=== PATIENT | male | born 1930 | race Caucasian/White ===

== ENCOUNTER 2018-10-04 09:05 | Inpatient (IN) | payer MEDICARE, BC ==
[2018-10-04] MEDS ORDERED: SODIUM CHLORIDE 0.9% 1,000 ML IV STA (09:22)
[2018-10-04] MEDS ORDERED: ONDANSETRON 4 MG/2 ML VIAL IVP STA (09:22)
--- NOTE | 2018-10-04 10:06 | ED ---
Abdominal Pain HPI - General Chief Complaint: Abdominal Pain Stated Complaint: vomiting Time Seen by Provider: 10/04/18 09:22 Source: patient, family, RN notes reviewed Mode of arrival: ambulatory Limitations: no limitations - History of Present Illness Initial Comments: This an 87-year-old male presents emergency Department chief complaint of abdominal discomfort, nausea vomiting. Patient states she's had a known hernia on the right side. Patient states he seen Dr. soto for this in the past and they held off on surgery. Patient states her last 2 days she's had no stool output, increasing nausea vomiting. Patient states that he has slight increase in pain to the right side. Patient called surgeon who advised him come emergency department. Patient denies any dysuria hematuria no fevers or chills. - Related Data Home Medications Medication Instructions Recorded Confirmed Digoxin [Lanoxin] 125 mcg PO DAILY 10/04/18 10/04/18 Levalbuterol Nebulized [Xopenex 1.25 mg INHALATION RT-TID PRN 10/04/18 10/04/18 Nebulized] Metoprolol Tartrate [Lopressor] 12.5 mg PO DAILY 10/04/18 10/04/18 Tamsulosin HCl [Flomax] 0.4 mg PO DAILY 10/04/18 10/04/18 Allergies Allergy/AdvReac Type Severity Reaction Status Date / Time cefuroxime [From Ceftin] Allergy Rash/Hives Verified 10/04/18 09:48 Review of Systems ROS Statement: Those systems with pertinent positive or pertinent negative responses have been documented in the HPI. ROS Other: All systems not noted in ROS Statement are negative. Past Medical History Past Medical History: Atrial Fibrillation, CVA/TIA History of Any Multi-Drug Resistant Organisms: None Reported Past Surgical History: Appendectomy, Hernia Repair, Orthopedic Surgery Past Psychological History: No Psychological Hx Reported Smoking Status: Never smoker Past Alcohol Use History: Daily Past Drug Use History: None Reported General Exam Limitations: no limitations General appearance: alert, in no apparent distress Head exam: Present: atraumatic, normocephalic, normal inspection Eye exam: Present: normal appearance, PERRL, EOMI. Absent: scleral icterus, conjunctival injection, periorbital swelling ENT exam: Present: normal exam, normal oropharynx, mucous membranes moist, TM's normal bilaterally Neck exam: Present: normal inspection, full ROM. Absent: tenderness, meningismus, lymphadenopathy Respiratory exam: Present: normal lung sounds bilaterally. Absent: respiratory distress, wheezes, rales, rhonchi, stridor Cardiovascular Exam: Present: normal rhythm, tachycardia, normal heart sounds. Absent: systolic murmur, diastolic murmur, rubs, gallop, clicks GI/Abdominal exam: Present: soft, normal bowel sounds. Absent: distended, te nderness, guarding, rebound, rigid Back exam: Absent: CVA tenderness (R), CVA tenderness (L) Neurological exam: Present: alert, oriented X3, CN II-XII intact Skin exam: Present: warm, dry, intact, normal color. Absent: rash Course Vital Signs 10/04/18 09:13 Temperature 98 F Pulse Rate 113 H Respiratory 18 Rate Blood Pressure 113/93 O2 Sat by Pulse 93 L Oximetry - Reevaluation(s) Reevaluation #1: 10/04/18 10:52 Lactic acid of 4.0 was reported initial fluid bolus was given a total 2 L based on ideal body weight of 65 kg Medical Decision Making - Lab Data Result diagrams: 10/04/18 10:25 10/04/18 10:25 Lab Results 10/04/18 10/04/18 10/04/18 Range/Units 10:25 10:25 10:25 WBC 8.4 (3.8-10.6) k/uL RBC 4.94 (4.30-5.90) m/uL Hgb 16.3 (13.0-17.5) gm/dL Hct 50.6 (39.0-53.0) % MCV 102.3 H (80.0-100.0) fL MCH 33.0 (25.0-35.0) pg MCHC 32.3 (31.0-37.0) g/dL RDW 14.5 (11.5-15.5) % Plt Count 222 (150-450) k/uL Neutrophils % 84 % Lymphocytes % 5 % Monocytes % 9 % Eosinophils % 1 % Basophils % 0 % Neutrophils # 7.1 (1.3-7.7) k/uL Lymphocytes # 0.4 L (1.0-4.8) k/uL Monocytes # 0.8 (0-1.0) k/uL Eosinophils # 0.1 (0-0.7) k/uL Basophils # 0.0 (0-0.2) k/uL Macrocytosis Slight PT (9.0-12.0) sec INR (<1.2) APTT (22.0-30.0) sec Sodium 142 (137-145) mmol/L Potassium 4.5 (3.5-5.1) mmol/L Chloride 99 (98-107) mmol/L Carbon Dioxide 28 (22-30) mmol/L Anion Gap 15 mmol/L BUN 37 H (9-20) mg/dL Creatinine 1.12 (0.66-1.25) mg/dL Est GFR (CKD-EPI)AfAm 69 (>60 ml/min/1.73 sqM) Est GFR (CKD-EPI)NonAf 60 (>60 ml/min/1.73 sqM) Glucose 174 H (74-99) mg/dL Plasma Lactic Acid Angelo 4.0 H* (0.7-2.0) mmol/L Calcium 10.1 (8.4-10.2) mg/dL Total Bilirubin 1.7 H (0.2-1.3) mg/dL AST 29 (17-59) U/L ALT 13 L (21-72) U/L Alkaline Phosphatase 86 (38-126) U/L Total Protein 8.1 (6.3-8.2) g/dL Albumin 4.7 (3.5-5.0) g/dL Amylase 65 (30-110) U/L Lipase 89 (23-300) U/L Urine Color Urine Appearance (Clear) Urine pH (5.0-8.0) Ur Specific [place] (1.001-1.035) Urine Protein (Negative) Urine Glucose (UA) (Negative) Urine Ketones (Negative) Urine Blood (Negative) Urine Nitrite (Negative) Urine Bilirubin (Negative) Urine Urobilinogen (<2.0) mg/dL Ur Leukocyte Esterase (Negative) Urine RBC (0-5) /hpf Urine WBC (0-5) /hpf Hyaline Casts (0-2) /lpf Urine Mucus (None) /hpf 10/04/18 10/04/18 Range/Units 10:25 10:25 WBC (3.8-10.6) k/uL RBC (4.30-5.90) m/uL Hgb (13.0-17.5) gm/dL Hct (39.0-53.0) % MCV (80.0-100.0) fL MCH (25.0-35.0) pg MCHC (31.0-37.0) g/dL RDW (11.5-15.5) % Plt Count (150-450) k/uL Neutrophils % % Lymphocytes % % Monocytes % % Eosinophils % % Basophils % % Neutrophils # (1.3-7.7) k/uL Lymphocytes # (1.0-4.8) k/uL Monocytes # (0-1.0) k/uL Eosinophils # (0-0.7) k/uL Basophils # (0-0.2) k/uL Macrocytosis PT 12.0 (9.0-12.0) sec INR 1.2 H (<1.2) APTT 22.3 (22.0-30.0) sec Sodium (137-145) mmol/L Potassium (3.5-5.1) mmol/L Chloride (98-107) mmol/L Carbon Dioxide (22-30) mmol/L Anion Gap mmol/L BUN (9-20) mg/dL Creatinine (0.66-1.25) mg/dL Est GFR (CKD-EPI)AfAm (>60 ml/min/1.73 sqM) Est GFR (CKD-EPI)NonAf (>60 ml/min/1.73 sqM) Glucose (74-99) mg/dL Plasma Lactic Acid Angelo (0.7-2.0) mmol/L Calcium (8.4-10.2) mg/dL Total Bilirubin (0.2-1.3) mg/dL AST (17-59) U/L ALT (21-72) U/L Alkaline Phosphatase (38-126) U/L Total Protein (6.3-8.2) g/dL Albumin (3.5-5.0) g/dL Amylase (30-110) U/L Lipase (23-300) U/L Urine Color Yellow Urine Appearance Clear (Clear) Urine pH 5.5 (5.0-8.0) Ur Specific [place] 1.030 (1.001-1.035) Urine Protein 2+ H (Negative) Urine Glucose (UA) Negative (Negative) Urine Ketones Trace H (Negative) Urine Blood Trace H (Negative) Urine Nitrite Negative (Negative) Urine Bilirubin Negative (Negative) Urine Urobilinogen 2.0 (<2.0) mg/dL Ur Leukocyte Esterase Trace H (Negative) Urine RBC 1 (0-5) /hpf Urine WBC <1 (0-5) /hpf Hyaline Casts 8 H (0-2) /lpf Urine Mucus Few H (None) /hpf Critical Care Time Critical Care Time: Yes Total Critical Care Time: 35 Critical Care Time: Total 35 minutes of critical care time were used initially evaluated the patient, you past medical history, vitals. Labs including CBC, CMP, lactic, PT/INR urinalysis were ordered CT of abdomen and pelvis were ordered initially which shows evidence of small bowel obstruction with right inguinal hernia as a transition point and concern for ischemic changes. I did this case with the admitting physician Dr. Osborne who recommended NG tube, antibiotics. Patient was given initial fluid bolus 2500 with 75 miles per hour infusion after. P atient will have repeat lactic Disposition Clinical Impression: Small bowel obstruction, Right inguinal hernia, Ischemic bowel disease Disposition: ADMITTED IP TO THIS HOSP Condition: Critical Referrals: Jose Cunningham MD [Primary Care Provider] - 1-2 days
[2018-10-04 10:36] LABS: Basophils % (A) 0 %; Eosinophils # (A) 0.1 k/uL (0-0.7); Eosinophils % (A) 1 %; HCT 50.6 % (39.0-53.0); HGB 16.3 gm/dL (13.0-17.5); Lymphocytes # (A) 0.4 k/uL (1.0-4.8); Lymphocytes % (A) 5 %; MCHC 32.3 g/dL (31.0-37.0); MCV 102.3 fL (80.0-100.0); Macrocytosis Slight; Mean Platelet Volume 7.6; Monocytes # (A) 0.8 k/uL (0-1.0); Monocytes % (A) 9 %; Neutrophils # (A) 7.1 k/uL (1.3-7.7); Neutrophils % (A) 84 %; Platelet Count 222 k/uL (150-450); RBC 4.94 m/uL (4.30-5.90); RDW 14.5 % (11.5-15.5); WBC 8.4 k/uL (3.8-10.6)
[2018-10-04 10:47] LABS: Albumin 4.7 g/dL (3.5-5.0); Calcium 10.1 mg/dL (8.4-10.2); Potassium 4.5 mmol/L (3.5-5.1); Total Bilirubin 1.7 mg/dL (0.2-1.3); Total Protein 8.1 g/dL (6.3-8.2)
[2018-10-04] MEDS ORDERED: SODIUM CHLORIDE 0.9% 1,000 ML IV ONE ×3 (10:51→19:51)
[2018-10-04 11:08] LABS: Appearance,Urine Clear (Clear); Bilirubin,Urine Negative (Negative); Blood,Urine Trace (Negative); Color,Urine Yellow; Glucose,Urine (UA) Negative (Negative); Hyaline Casts,Urine 8 /lpf (0-2); Ketones,Urine Trace (Negative); Leukocyte Esterase,Urine Trace (Negative); Mucus,Urine Few /hpf; Nitrite,Urine Negative (Negative); PH, Urine 5.5 (5.0-8.0); Protein,Urine 2+ (Negative); RBC,Urine 1 /hpf (0-5)
[2018-10-04 11:11] LABS: INR 1.2 (<1.2); Partial Thromboplastin Time 22.3 sec (22.0-30.0)
--- NOTE | 2018-10-04 12:54 | CT ---
EXAMINATION TYPE: CT abdomen pelvis w con DATE OF EXAM: 10/04/2018 COMPARISON: 02/14/2016 HISTORY: 87-year-old male with Vomiting TECHNIQUE: Contiguous axial scanning of the abdomen and pelvis following administration of 100 ml Iso parvin 300 IV contrast. Delayed images through the kidneys and coronal/sagittal reconstructions perform ed. CT DLP: 656.5 mGycm Automated exposure control for dose reduction was used. FINDINGS: The heart is mildly enlarged. Dense mitral annular calcifications. Groundglass within the right base and some focal infiltrate basilar right middle lobe. No pleural effusion. Mild circumferential wall thickening distal esophagus. Prominent fluid distention of the stomach. Sug gestion of some scattered gastric wall pneumatosis and adjacent mild perigastric fluid. Liver shows diffuse portal venous gas without focal lesion. Gallbladder, adrenal glands, left kidney, spleen, atrophic pancreas show no gross remodeling. Multiple cortical defects within the right kidney suggests prior vascular or infectious insults. Small bowel loops are dilated up to 4.1 cm with air-fluid levels. Some edematous small bowel loops ar e demonstrated. Distal ileum is collapsed. There is a small right-sided direct inguinal hernia contai helio a short segment small bowel loop. This is suspected to represent a transition point. Scattered chronic diverticulosis. No pericolic inflammatory change. Bladder partially distended. Prostate gland measures 3.8 cm wide. Additional fluid accumulated within the patient's direct right inguinal hernia. No pelvic lymphadenopathy. Bones: Degenerative changes at the hips. Degenerative disease and facet arthropathy throughout the ct mbar spine. IMPRESSION: 1. HIGH-GRADE SMALL BOWEL OBSTRUCTION (SMALL BOWEL LOOPS DILATED UP TO 4.1 CM). TRANSITION POINT LIKE LY AT A SMALL DIRECT RIGHT INGUINAL HERNIA. 2. SOME SMALL BOWEL LOOPS HAVE AN EDEMATOUS APPEARANCE. THERE IS GASTRIC WALL PNEUMATOSIS AND ADDITIO NAL PORTAL VENOUS GAS. CORRELATE WITH LACTIC ACID LEVELS FOR POSSIBLE BOWEL ISCHEMIA SECONDARY TO THE OBSTRUCTION. 3. MILD PERIGASTRIC FREE FLUID IS NOTED. HOWEVER, NO FREE AIR IS SEEN AT THIS TIME. 4. NEW GROUNDGLASS INFILTRATES AT THE RIGHT BASE. CORRELATE FOR INFECTIOUS OR ASPIRATION PNEUMONITIS.
[2018-10-04] MEDS ORDERED: PIPERACILLIN-TAZOBACTAM 3.375 GM in SODIUM CHLORIDE 0.9% 100 ML IVPB STA (13:05)
[2018-10-04] MEDS ORDERED: SODIUM CHLORIDE 0.9% 500 ML 500 ML IV ONE (13:05)
[2018-10-04] MEDS ORDERED: NALOXONE 0.4 MG/ML 1 ML VIAL IV PRN (13:18)
[2018-10-04] MEDS ORDERED: ONDANSETRON 4 MG/2 ML VIAL IVP PRN (13:18)
[2018-10-04] MEDS ORDERED: MORPHINE SULFATE 4 MG/ML SYRINGE IV PRN (13:18)
[2018-10-04] MEDS: SODIUM CHLORIDE 0.9% 1,000 ML IV SCH (15:30)
--- NOTE | 2018-10-04 15:49 | P.GSHP ---
History of Present Illness H&P Date: 10/04/18 CHIEF COMPLAINT: Abdominal pain HISTORY OF PRESENT ILLNESS: The patient is a 87 year old male with past history of previous bilateral inguinal hernia repairs as a child. He developed a recurrent right inguinal hernia which was being observed as outpatient with Dr. King. In the last 3 days, he's been unable to pass flatus. He notified his surgeon's office who immediately direct into the ER today. He has no alleviating or modifying factors. He is unable to reduce his right inguinal hernia for over 3 days. Most history obtained by his at bedside. He has acute abdominal distention including abdominal pain localized to the right lower quadrant and groin. He developed acute nausea and vomiting. Additional studies in the ER including a lactate level was moderately elevated with lactic acidosis. Diagnostic studies confirmed strangulated small bowel secondary to right inguinal hernia and acute closed loop small bowel obstruction. PAST MEDICAL HISTORY: See list. PAST SURGICAL HISTORY: See list. MEDICATIONS: See list. ALLERGIES: See list. SOCIAL HISTORY: No illicit drug use FAMILY HISTORY: No reports of Crohn's disease or inflammatory bowel disease REVIEW OF ORGAN SYSTEMS: CONSTITUTIONAL: No fevers or chills. EYES: Denies any trouble with vision. No glasses. HEENT: No difficulties with hearing. No nosebleeds. No difficulty swallowing. RESPIRATORY: Denies pneumonia. Denies any troubles with breathing or dyspnea on exertion. CARDIOVASCULAR: Has atrial fibrillation GASTROINTESTINAL: Denies fatty food intolerance. Has change in bowel habits and gas bloat. GENITOURINARY: Denies any blood in urine or increased urinary frequency. NEUROLOGICAL: Denies any numbness or tingling along the distal extremities. No seizure disorders or headaches. MUSCULOSKELETAL: Has any back pain, stiffness or joint arthritis. SKIN: No current skin cancer. No rash. PSYCHIATRIC: Denies current depression or suicidal thoughts. ENDOCRINE: Denies current thyroid disorders. Denies any blood sugar glucose intolerance. HEME/LYMPHATIC: Denies any lumps and bumps around the neck. No recent deep venous thrombosis. ALLERGY/IMMUNOLOGY: No immunoglobulin therapy. No immune deficiencies. BREAST: Denies current breast lumps, pain or nipple discharge. PHYSICAL EXAM: VITALS: Reviewed CONSTITUTIONAL: Well developed and in no acute distress. EYES: Conjuctivae without sclera icterus. Pupils are equally round and reactive to light. Extraocular movements grossly intact. HEAD, EARS, NOSE, THROAT: Moist buccal mucosa. Head is atraumatic, normocephalic. Hears conversational speech. No nasal drainage. NECK: Supple. No JV distention. No thyroidomegaly. RESPIRATORY: Non-labored respirations and equal bilateral excursions. No gross wheezes. CARDIOVASCULAR: Irregular rate and rhythm. Extremities without moderate edema. Palpable 2+ radial pulses. ABDOMEN: Soft, tender right groin with skin changes consistent with strangulated right inguinal hernia over 4 cm at internal inguinal ring. LYMPH: No neck lymphadenopathy. No axillary lymphadenopathy. MUSCULOSKELETAL: Nail and fingers with good capillary refill. SKIN: Warm and well perfused with good skin turgor. NEUROLOGIC: Cranial nerves I through XII grossly intact. Sensation upper and extremities intact. No focal or lateralizing signs. PSYCH: Appropriate affect. Alert and oriented to person, place and time. Displays appropriate insight. Has mild dysarthria CLINCAL LABS: Reviewed RADIOLOGY: Report reviewed IMAGING: Independently reviewed alongside with transition point at the right inguinal ring and closed loop obstruction with air along the biliary tree RECORDS: previous old records reviewed ASSESSMENT: 1. Acute strangulated right inguinal hernia with complete small bowel obstruct ion 2. Atrial fibrillation with rapid ventricular response 3. Lactic acidosis PLAN: 1. He is high risk for perioperative complications due to atrial fibrillation with RVR including lactic acidosis. 2. IV fluid boluses at least 2 L normal saline performed with repeat lactic acid levels pending. 3. He has acute strangulated small bowel for 3 days with bowel per CT. Will proceed with laparotomy and small bowel resection. 4. Inpatient hospitalization anticipated over 2 days. 5. Will obtain 12-lead EKG baseline prior to surgery 6. Will need cardiac consultation for atrial fibrillation 7. At this time immediate anticoagulation on hold pending surgery however heparin drip may be feasible 24-48 hours after surgery 8. DVT prophylaxis with heparin 5000 units subcutaneously Thank you for this kind consultation. Past Medical History Past Medical History: Atrial Fibrillation, CVA/TIA History of Any Multi-Drug Resistant Organisms: None Reported Past Surgical History: Appendectomy, Hernia Repair, Orthopedic Surgery Past Psychological History: No Psychological Hx Reported Smoking Status: Never smoker Past Alcohol Use History: Daily Past Drug Use History: None Reported Medications and Allergies Home Medications Medication Instructions Recorded Confirmed Type Digoxin [Lanoxin] 125 mcg PO DAILY 10/04/18 10/04/18 History Levalbuterol Nebulized [Xopenex 1.25 mg INHALATION RT-TID PRN 10/04/18 10/04/18 History Nebulized] Metoprolol Tartrate [Lopressor] 12.5 mg PO DAILY 10/04/18 10/04/18 History Tamsulosin HCl [Flomax] 0.4 mg PO DAILY 10/04/18 10/04/18 History Allergies Allergy/AdvReac Type Severity Reaction Status Date / Time cefuroxime [From Ceftin] Allergy Rash/Hives Verified 10/04/18 09:48 Surgical - Exam Vital Signs Temp Pulse Resp BP Pulse Ox 98 F 113 H 18 113/93 93 L 10/04/18 09:13 10/04/18 09:13 10/04/18 09:13 10/04/18 09:13 10/04/18 09:13 Results - Labs 10/04/18 10:25 10/04/18 10:25 Abnormal Lab Results - Last 24 Hours (Table) 10/04/18 10/04/18 10/04/18 Range/Units 10:25 10:25 10:25 MCV 102.3 H (80.0-100.0) fL Lymphocytes # 0.4 L (1.0-4.8) k/uL INR (<1.2) BUN 37 H (9-20) mg/dL Glucose 174 H (74-99) mg/dL Plasma Lactic Acid Angelo 4.0 H* (0.7-2.0) mmol/L Total Bilirubin 1.7 H (0.2-1.3) mg/dL ALT 13 L (21-72) U/L Urine Protein (Negative) Urine Ketones (Negative) Urine Blood (Negative) Ur Leukocyte Esterase (Negative) Hyaline Casts (0-2) /lpf Urine Mucus (None) /hpf 10/04/18 10/04/18 10/04/18 Range/Units 10:25 10:25 13:49 MCV (80.0-100.0) fL Lymphocytes # (1.0-4.8) k/uL INR 1.2 H (<1.2) BUN (9-20) mg/dL Glucose (74-99) mg/dL Plasma Lactic Acid Angelo 2.1 H* (0.7-2.0) mmol/L Total Bilirubin (0.2-1.3) mg/dL ALT (21-72) U/L Urine Protein 2+ H (Negative) Urine Ketones Trace H (Negative) Urine Blood Trace H (Negative) Ur Leukocyte Esterase Trace H (Negative) Hyaline Casts 8 H (0-2) /lpf Urine Mucus Few H (None) /hpf Diabetes panel 10/04/18 Range/Units 10:25 Sodium 142 (137-145) mmol/L Potassium 4.5 (3.5-5.1) mmol/L Chloride 99 (98-107) mmol/L Carbon Dioxide 28 (22-30) mmol/L BUN 37 H (9-20) mg/dL Creatinine 1.12 (0.66-1.25) mg/dL Glucose 174 H (74-99) mg/dL Calcium 10.1 (8.4-10.2) mg/dL AST 29 (17-59) U/L ALT 13 L (21-72) U/L Alkaline Phosphatase 86 (38-126) U/L Total Protein 8.1 (6.3-8.2) g/dL Albumin 4.7 (3.5-5.0) g/dL Calcium panel 10/04/18 Range/Units 10:25 Calcium 10.1 (8.4-10.2) mg/dL Albumin 4.7 (3.5-5.0) g/dL Pituitary panel 10/04/18 Range/Units 10:25 Sodium 142 (137-145) mmol/L Potassium 4.5 (3.5-5.1) mmol/L Chloride 99 (98-107) mmol/L Carbon Dioxide 28 (22-30) mmol/L BUN 37 H (9-20) mg/dL Creatinine 1.12 (0.66-1.25) mg/dL Glucose 174 H (74-99) mg/dL Calcium 10.1 (8.4-10.2) mg/dL Adrenal panel 10/04/18 Range/Units 10:25 Sodium 142 (137-145) mmol/L Potassium 4.5 (3.5-5.1) mmol/L Chloride 99 (98-107) mmol/L Carbon Dioxide 28 (22-30) mmol/L BUN 37 H (9-20) mg/dL Creatinine 1.12 (0.66-1.25) mg/dL Glucose 174 H (74-99) mg/dL Calcium 10.1 (8.4-10.2) mg/dL Total Bilirubin 1.7 H (0.2-1.3) mg/dL AST 29 (17-59) U/L ALT 13 L (21-72) U/L Alkaline Phosphatase 86 (38-126) U/L Total Protein 8.1 (6.3-8.2) g/dL Albumin 4.7 (3.5-5.0) g/dL - Imaging CT scan - abdomen: report reviewed, image reviewed CT scan - pelvis: report reviewed, image reviewed Assessment and Plan (1) Atrial fibrillation with RVR Current Visit: Yes Status: Acute Code(s): I48.91 - UNSPECIFIED ATRIAL FIBRILLATION SNOMED Code(s): 549233446738090 (2) Chronic atrial fibrillation with RVR Current Visit: Yes Status: Acute Code(s): I48.2 - CHRONIC ATRIAL FIBRILLATION SNOMED Code(s): 735307612 (3) Ischemic bowel disease Current Visit: Yes Status: Acute Code(s): K55.9 - VASCULAR DISORDER OF INTESTINE, UNSPECIFIED SNOMED Code(s): 26930271 (4) Right inguinal hernia Current Visit: Yes Status: Acute Code(s): K40.90 - UNIL INGUINAL HERNIA, W/O OBST OR GANGR, NOT SPCF RECUR SNOMED Code(s): 944958117 (5) Small bowel obstruction Current Visit: Yes Status: Acute Code(s): K56.609 - UNSP INTESTNL OBST, UNSP TO PARTIAL VERSUS COMPLETE OBST SNOMED Code(s): 858201575
[2018-10-04] MEDS ORDERED: IV FLUID CONTINUATION 900 ML IV ONE (16:40)
[2018-10-04] MEDS ORDERED: HEPARIN SODIUM,PORCINE 5,000 UNIT/ML 1 ML VIAL SQ ONE ×2 (16:43→17:15)
[2018-10-04] MEDS ORDERED: ONDANSETRON 4 MG/2 ML VIAL IVP ONE (17:00)
[2018-10-04] MEDS ORDERED: PROPOFOL 10 MG/ML 20 ML VIAL IV ONE (17:17)
[2018-10-04] MEDS ORDERED: SUCCINYLCHOLINE CHLORIDE 100 MG/5 ML SYR IV ONE (17:17)
[2018-10-04] MEDS ORDERED: PHENYLEPHRINE-0.9% NACL SYG 1 MG/10 ML SYRINGE ONE (17:17)
[2018-10-04] MEDS ORDERED: GLYCOPYRROLATE 0.2 MG/ML 2 ML VIAL ONE (17:17)
[2018-10-04] MEDS ORDERED: LIDOCAINE 1% INJ 10MG/ML (20 ML MDV) ONE (17:17)
[2018-10-04] MEDS ORDERED: ROCURONIUM BROMIDE 10 MG/ML 10 ML VIAL IV ONE (17:17)
[2018-10-04] MEDS ORDERED: NEOSTIGMINE 1 MG/ML 10 ML VIAL ONE (17:17)
[2018-10-04] MEDS ORDERED: fentaNYL (PF) 50 MCG/ML 2 ML AMP ONE (17:17)
[2018-10-04] MEDS ORDERED: HYDROmorphone 0.5 MG/0.5 ML SYRINGE IVP PRN (19:09)
[2018-10-04] MEDS ORDERED: HYDROcodone/APAP 5-325MG 1 EACH TAB PO PRN (19:09)
[2018-10-04] MEDS ORDERED: ACETAMINOPHEN TAB 325 MG TAB PO PRN (19:09)
--- NOTE | 2018-10-04 19:20 | P.OP ---
Date of Procedure: 10/04/18 Description of Procedure: SURGEON: AMANDA MASON MD ASSISTANT PROPERTY MANAGER: NONE. PREOPERATIVE DIAGNOSIS: 1. Complete small bowel obstruction due to acute recurrent strangulated right inguinal hernia 2. Lactic acidosis 3. Hypertensive heart disease. 4. Atrial fibrillation with rapid ventricular response 5. Previous history of cerebrovascular accident with sequelae 6. Previous history of recurrent bilateral inguinal hernia repairs 7. Previous history of multiple abdominal surgeries 8. Chronic obstructive pulmonary disease POSTOPERATIVE DIAGNOSIS: 1. Complete small bowel obstruction due to acute recurrent strangulated right inguinal hernia 2. Lactic acidosis 3. Hypertensive heart disease. 4. Atrial fibrillation with rapid ventricular response 5. Previous history of cerebrovascular accident with sequelae 6. Previous history of recurrent bilateral inguinal hernia repairs 7. Previous history of multiple abdominal surgeries 8. Chronic obstructive pulmonary disease 9. Small bowel necrosis distal jejunum 10. 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 Open exploratory laparotomy with lysis of adhesions. 2. Open small bowel enterectomy with primary anastomosis. 3. Open repair without mesh of recurrent right incarcerated inguinal hernia for strangulated small bowel ANESTHESIA: General ESTIMATED BLOOD LOSS: 20 cc. SPECIMENS REMOVED: Small bowel resection, 4 cm. CONDITION: Stable. DISPOSITION: To the Floor. COMPLICATIONS: None. OPERATIVE FINDINGS: 1. Small bowel closed loop obstruction from recurrent right inguinal hernia found in the right lower quadrant with small bowel necrosis, 4 cm, distal jejunum INDICATIONS: The patient is a 87-year-old male who has history of recurrent right inguinal hernia and abdominal pain of [address] of the abdomen and pelvis was consistent with small bowel obstruction including risk of ischemic bowel with lactic acidosis. Emergent surgical intervention was advised with exploratory laparotomy with bowel resection. Right inguinal hernia repair without mesh was also reviewed to avoid risk for contamination of mesh in an infected field. Benefits and risks of the procedures were discussed. Informed consent was obtained. The patient's family were at bedside. DESCRIPTION: The patient was brought to the operating room. Nasogastric tube was previously placed. After general induction, a Shea catheter was placed. The abdomen was prepped and draped in standard sterile fashion. Ioban draping was also placed. Prior to incision, a timeout protocol was confirmed with surgical team regarding patient's name including procedures to be performed. Preoperative medications were confirmed. A #10 blade was used to enter along the epigastrium and extended down to the pubis. Carefully the abdomen was entered using electro- Bovie cautery. The small bowel was grossly dilated. Peritoneal adhesions greater omentum to the anterior abdominal wall was found along the midline in the right lower quadrant addressed using Enseal vessel sealer. A large swollen mass was found along the right groin where attempted reduction was performed. The patient was placed in steep Trendelenburg position with gentle pressure over the right groin. The incarcerated small bowel was reduced with early necrosis of the sidewall of the distal jejunum was found. A short segment of 4 cm was determined after observing the bowel for over 5 minutes. The necrotic small bowel was repaired for resection after approximating the small bowel and a [id number] anastomosis using 3-0 silk. The short 4-cm segment small bowel was resected using The Bar Method Endo ZAFAR 60 mm self loads. Enterotomies were made along the anti-mesenteric border. Ankit-lumen was created after firing using similar stapler. The enterotomy was closed using Endo ZAFAR 60 mm purple load. Hemostasis was checked and the lumen was patent. A separate 3- 0 silk was placed on the seat of the anastomosis. The rest of the abdomen was explored where no evidence of peritoneal studding or signs of cancer was found. Moderate large stool albeit firm was found along the ascending including transverse colon. A separate adhesion was found of the terminal ileum from previous appendectomy which was also sharply lysed to decrease risk of small bowel incarceration. Attention was brought to the right inguinal hernia defect which was indirect. The defect was explored of 1.5 cm in size. The defect was oversewn using pursestring 2-0V LOC until the defect was completely obliterated. Mesh repair was avoided as this is a contaminated case as previously explained to the patient's family. All instruments and gowns including gloves were changed after confirming hemostasis. The abdomen was dried using towels. All sponge count was verified as correct. The abdomen was closed using double stranded 0 PDS. The skin was cleansed with dilute hydrogen peroxide. An Optifoam incisional length dressing was placed. An abdominal binder was placed. At the end of the procedure, needle, sponge, and instrument count had been verified correct by the certified surgical tech/first assistant. The patient was sent to the postanesthesia care unit in stable condition. Intraoperative findings were described to the patient's family who were very pleased with the level of care. Postoperative recovery in detail was described.
[2018-10-04] MEDS: HEPARIN SODIUM,PORCINE 5,000 UNIT/ML 1 ML VIAL SQ SCH (22:00)
--- NOTE | 2018-10-04 22:33 | P.CONS ---
History of Present Illness - Reason for Consult Consult date: 10/04/18 Medical management Requesting physician: Emily Ledesma - Chief Complaint Abdominal pain - History of Present Illness Consultation: This is a 87-year-old patient who follows with Dr. Parada. Chronic stable medical conditions include intermittent asthma, dysarthria from a prior stroke, BPH, possible atrial fibrillation. Patient had presented to the ER with 2 days of increasing pain in the right inguinal area. Pain was localized to the right groin. No fever no chills. Nausea vomiting. Had not had a bowel movement for 2 days. A computed tomography scan showed a high-grade small bowel obstruction with a transition point. Patient was taken to the OR. 4 cm of the jejunal was taken out. End to end anastomosis was done. Patient has a NG tube in place. Patient is a somewhat limited historian because of his dysarthria and NG tube in place. Most of the history is obtained from the nurse and the ER notes. Review of systems: GEN.: Tired EYES: None HEENT: None NECK: None RESPIRATORY: None CARDIOVASCULAR: None GASTROINTESTINAL: As above GENITOURINARY: None MUSCULOSKELETAL: Some pain in the joints LYMPHATICS: None HEMATOLOGICAL: None PSYCHIATRY: None NEUROLOGICAL: Dysarthric Past medical history: Intermittent asthma, dysarthria from prior stroke, BPH, possible atrial fibrillation, osteoarthritis Social history: No smoking. Some alcohol. Possibly lives with family. Retired. Physical examination: VITAL SIGNS: 98.2, 107, 18, 1 57 x 88 98% on 2 L GENERAL: Average built, sitting up, tired appearing. EYES: Pupils equal. Conjunctiva normal. HEENT: External appearance of nose and ears normal, oral cavity dry, NG tube in place. NECK: JVD not raised; masses not palpable. HEART: First and second heart sounds are normal; no edema. LUNGS: Respiratory rate normal; clear to auscultation. ABDOMEN: Soft, tender, bowel sounds are sluggish, binder in place. Unable to assess for liver and spleen.. PSYCH: [Unable to assess because of dysarthria. NEUROLOGICAL: Cranial nerves grossly intact; no facial asymmetry, power and sensation grossly intact. Patient has got dysarthria. 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 IV fluids. Patient to take his pills especially his beta cathy if okay with general surgery. Patient has heparin for DVT prophylaxis. Care was discussed with the patient. No family members present. Patient to be watched on telemetry Thank you Dr. Osborne Past Medical History Past Medical History: Atrial Fibrillation, CVA/TIA History of Any Multi-Drug Resistant Organisms: None Reported Past Surgical History: Appendectomy, Hernia Repair, Orthopedic Surgery Past Psychological History: No Psychological Hx Reported Smoking Status: Never smoker Past Alcohol Use History: Daily Past Drug Use History: None Reported Medications and Allergies Home Medications Medication Instructions Recorded Confirmed Type Digoxin [Lanoxin] 125 mcg PO DAILY 10/04/18 10/04/18 History Levalbuterol Nebulized [Xopenex 1.25 mg INHALATION RT-TID PRN 10/04/18 10/04/18 History Nebulized] Metoprolol Tartrate [Lopressor] 12.5 mg PO DAILY 10/04/18 10/04/18 History Tamsulosin HCl [Flomax] 0.4 mg PO DAILY 10/04/18 10/04/18 History Allergies Allergy/AdvReac Type Severity Reaction Status Date / Time cefuroxime [From Ceftin] Allergy Rash/Hives Verified 10/04/18 09:48 Physical Exam Vitals: Vital Signs Temp Pulse Pulse Pulse Resp BP BP 10/04/18 20:01 110 H 16 157/88 10/04/18 19:46 110 H 16 161/98 10/04/18 19:30 110 H 16 165/96 10/04/18 19:16 109 H 18 169/93 10/04/18 19:04 98.2 F 107 H 18 181/83 10/04/18 16:42 99.5 F 113 H 18 139/95 10/04/18 14:50 52 L 17 139/97 10/04/18 09:13 98 F 113 H 18 113/93 Pulse Ox 10/04/18 20:01 98 10/04/18 19:46 98 10/04/18 19:30 98 10/04/18 19:16 98 10/04/18 19:04 98 10/04/18 16:42 95 10/04/18 14:50 93 L 10/04/18 09:13 93 L Intake and Output 10/04/18 10/04/18 10/04/18 06:59 14:59 22:59 Intake Total 3300 Output Total 900 295 Balance -900 3005 Intake: IV 800 Amount of Fluid Infused ( 2500 ml) Output: Gastric Drainage 900 Urine 275 Estimated Blood Loss 20 Other: Weight 68.039 kg Results CBC & Chem 7: 10/04/18 10:25 10/04/18 10:25 Labs: Abnormal Lab Results - Last 24 Hours (Table) 10/04/18 10/04/18 10/04/18 Range/Units 10:25 10:25 10:25 MCV 102.3 H (80.0-100.0) fL Lymphocytes # 0.4 L (1.0-4.8) k/uL INR (<1.2) BUN 37 H (9-20) mg/dL Glucose 174 H (74-99) mg/dL Plasma Lactic Acid Angelo 4.0 H* (0.7-2.0) mmol/L Total Bilirubin 1.7 H (0.2-1.3) mg/dL ALT 13 L (21-72) U/L Urine Protein (Negative) Urine Ketones (Negative) Urine Blood (Negative) Ur Leukocyte Esterase (Negative) Hyaline Casts (0-2) /lpf Urine Mucus (None) /hpf 10/04/18 10/04/18 10/04/18 Range/Units 10:25 10:25 13:49 MCV (80.0-100.0) fL Lymphocytes # (1.0-4.8) k/uL INR 1.2 H (<1.2) BUN (9-20) mg/dL Glucose (74-99) mg/dL Plasma Lactic Acid Angelo 2.1 H* (0.7-2.0) mmol/L Total Bilirubin (0.2-1.3) mg/dL ALT (21-72) U/L Urine Protein 2+ H (Negative) Urine Ketones Trace H (Negative) Urine Blood Trace H (Negative) Ur Leukocyte Esterase Trace H (Negative) Hyaline Casts 8 H (0-2) /lpf Urine Mucus Few H (None) /hpf 10/04/18 Range/Units 18:25 MCV (80.0-100.0) fL Lymphocytes # (1.0-4.8) k/uL INR (<1.2) BUN (9-20) mg/dL Glucose (74-99) mg/dL Plasma Lactic Acid Angelo 2.7 H* (0.7-2.0) mmol/L Total Bilirubin (0.2-1.3) mg/dL ALT (21-72) U/L Urine Protein (Negative) Urine Ketones (Negative) Urine Blood (Negative) Ur Leukocyte Esterase (Negative) Hyaline Casts (0-2) /lpf Urine Mucus (None) /hpf
[2018-10-05] MEDS: PIPERACILLIN-TAZOBACTAM 3.375 GM in SODIUM CHLORIDE 0.9% 100 ML IVPB SCH ×4 (00:15→23:04)
[2018-10-05] MEDS: METOPROLOL TARTRATE 12.5 MG TAB PO SCH ×2 (04:31→09:06)
[2018-10-05] MEDS: SODIUM CHLORIDE 0.9% 1,000 ML IV SCH ×2 (04:33→08:43)
[2018-10-05 07:01] LABS: Albumin 2.9 g/dL (3.5-5.0); Calcium 8.2 mg/dL (8.4-10.2); Magnesium 1.8 mg/dL (1.6-2.3); Phosphorus 3.8 mg/dL (2.5-4.5); Potassium 4.2 mmol/L (3.5-5.1); Total Bilirubin 1.3 mg/dL (0.2-1.3); Total Protein 5.4 g/dL (6.3-8.2)
[2018-10-05 07:02] LABS: Basophils % (A) 0 %; Eosinophils % (A) 1 %; HCT 42.1 % (39.0-53.0); HGB 13.4 gm/dL (13.0-17.5); Lymphocytes # (A) 0.7 k/uL (1.0-4.8); Lymphocytes % (A) 9 %; MCH 32.8 pg (25.0-35.0); MCHC 31.7 g/dL (31.0-37.0); MCV 103.5 fL (80.0-100.0); Macrocytosis Slight; Mean Platelet Volume 7.5; Monocytes # (A) 0.4 k/uL (0-1.0); Monocytes % (A) 5 %; Neutrophils # (A) 5.9 k/uL (1.3-7.7); Neutrophils % (A) 83 %; Platelet Count 167 k/uL (150-450); RBC 4.07 m/uL (4.30-5.90); RDW 14.5 % (11.5-15.5); WBC 7.1 k/uL (3.8-10.6)
[2018-10-05] MEDS: PANTOPRAZOLE 40 MG/10 ML VIAL IV SCH (08:42)
[2018-10-05] MEDS: HEPARIN SODIUM,PORCINE 5,000 UNIT/ML 1 ML VIAL SQ SCH ×2 (08:43→20:05)
[2018-10-05] MEDS ORDERED: METOPROLOL TARTRATE 12.5 MG TAB PO SCH (09:00)
[2018-10-05] MEDS ORDERED: DIGOXIN 125 MCG TAB PO SCH (09:00)
[2018-10-05] MEDS: TAMSULOSIN 0.4 MG CAP.ER.24H PO SCH (09:06)
--- NOTE | 2018-10-05 09:55 | P.CRDCN ---
History of Present Illness Consult date: 10/05/18 Requesting physician: Emily Ledesma Consult reason: atrial fibrillation Chief complaint: Abdominal discomfort, nausea and vomiting History of present illness: This is an 87-year-old gentleman, the history was somewhat difficult to obtain from the patient, most of it was obtained from the medical record. Patient has had a prior stroke and has dysarthria from that. He does have h istory of asthma, he does take a beta cathy as well as Lanoxin at home, but he is unsure if he has any history of atrial fibrillation in the past, mild hypertension, nondiabetic, no high cholesterol. He presented to the hospital with symptoms of abdominal discomfort, not having had a bowel movement for the past 2-3 days prior to admission here, he was found to have a high-grade small bowel obstruction and was taken to the emergency room where he underwent surgery. Patient is noted to be in atrial tachycardia with occasional PVC , cardiology consultation has been requested for possible atrial fibrillation.. Blood pressure this morning 134/70 with a heart rate in the 1 teens, 96% on 2 L of oxygen. White blood cell count 7.1, hemoglobin 13.4, platelet count 167. Sodium 142, potassium 4.2, BUN 33 and creatinine 0.9. Magnesium is 1.8. Patient is sitting up in the chair at bedside at this morning, NG tube has been removed. Past Medical History Past Medical History: Atrial Fibrillation, CVA/TIA History of Any Multi-Drug Resistant Organisms: None Reported Past Surgical History: Appendectomy, Hernia Repair, Orthopedic Surgery Past Psychological History: No Psychological Hx Reported Smoking Status: Never smoker Past Alcohol Use History: Daily Past Drug Use History: None Reported Medications and Allergies Home Medications Medication Instructions Recorded Confirmed Type Digoxin [Lanoxin] 125 mcg PO DAILY 10/04/18 10/04/18 History Levalbuterol Nebulized [Xopenex 1.25 mg INHALATION RT-TID PRN 10/04/18 10/04/18 History Nebulized] Metoprolol Tartrate [Lopressor] 12.5 mg PO DAILY 10/04/18 10/04/18 History Tamsulosin HCl [Flomax] 0.4 mg PO DAILY 10/04/18 10/04/18 History Allergies Allergy/AdvReac Type Severity Reaction Status Date / Time cefuroxime [From Ceftin] Allergy Rash/Hives Verified 10/04/18 09:48 Physical Exam Vitals: Vital Signs Temp Pulse Pulse Pulse Resp BP BP 10/05/18 07:32 18 10/05/18 07:30 98.3 F 115 H 18 134/78 10/05/18 04:00 98.4 F 113 H 18 150/91 10/04/18 22:40 96.9 F L 110 H 18 155/91 10/04/18 21:40 97.1 F L 111 H 18 139/89 10/04/18 20:40 97.0 F L 111 H 18 147/94 10/04/18 20:01 110 H 16 157/88 10/04/18 19:46 110 H 16 161/98 10/04/18 19:30 110 H 16 165/96 10/04/18 19:16 109 H 18 169/93 10/04/18 19:04 98.2 F 107 H 18 181/83 10/04/18 16:42 99.5 F 113 H 18 139/95 10/04/18 14:50 52 L 17 139/97 Pulse Ox 10/05/18 07:32 96 10/05/18 07:30 88 L 10/05/18 04:00 97 10/04/18 22:40 97 10/04/18 21:40 96 10/04/18 20:40 89 L 10/04/18 20:01 98 10/04/18 19:46 98 10/04/18 19:30 98 10/04/18 19:16 98 10/04/18 19:04 98 10/04/18 16:42 95 10/04/18 14:50 93 L Intake and Output 10/04/18 10/05/18 10/05/18 22:59 06:59 14:59 Intake Total 3300 100 Output Total 570 650 400 Balance 2730 -550 -400 Intake: IV 800 Amount of Fluid Infused ( 2500 ml) Intake, IV Titration 100 Amount Piperacillin-Tazobactam 3 100 .375 gm In Sodium Chloride 0.9% 100 ml @ 25 mls/hr IVPB Q8HR [facility] Rx# :[id number] Output: Gastric Drainage 100 Urine 550 550 400 Estimated Blood Loss 20 Other: Voiding Method Indwelling Catheter Indwelling Catheter Weight 75 kg PHYSICAL EXAMINATION: GENERAL: 87-year-old gentleman in no acute distress at the time of my examination HEENT: Head is atraumatic, normocephalic. Pupils equal, round. Sclera anicteric. Conjunctiva are clear. Mucous membranes of the mouth are moist. Neck is supple. There is no elevated jugular venous pressure. No carotid bruit is heard. HEART EXAMINATION: Heart S1 and S2 irregularly irregular a systolic murmur is heard CHEST EXAMINATION: Lungs reveal scattered coarse rhonchi that clear with cough. ABDOMEN: Soft, mild generalized tenderness, bowel sounds are sluggish, abdominal binder is in place.. EXTREMITIES: 2+ peripheral pulses with no evidence of peripheral edema and no calf tenderness noted. Venodyne's in place. NEUROLOGIC patient is awake, alert and oriented 3, positive dysarthria secondary to CVA.. . Results 10/05/18 06:08 10/05/18 06:08 Cardiac Enzymes 10/04/18 10/05/18 Range/Units 10:25 06:08 AST 29 25 (17-59) U/L Coagulation 10/04/18 Range/Units 10:25 PT 12.0 (9.0-12.0) sec APTT 22.3 (22.0-30.0) sec CBC 10/04/18 10/05/18 Range/Units 10:25 06:08 WBC 8.4 7.1 (3.8-10.6) k/uL RBC 4.94 4.07 L (4.30-5.90) m/uL Hgb 16.3 13.4 (13.0-17.5) gm/dL Hct 50.6 42.1 (39.0-53.0) % Plt Count 222 167 (150-450) k/uL Comprehensive Metabolic Panel 10/04/18 10/05/18 Range/Units 10:25 06:08 Sodium 142 142 (137-145) mmol/L Potassium 4.5 4.2 (3.5-5.1) mmol/L Chloride 99 110 H (98-107) mmol/L Carbon Dioxide 28 26 (22-30) mmol/L BUN 37 H 33 H (9-20) mg/dL Creatinine 1.12 0.98 (0.66-1.25) mg/dL Glucose 174 H 120 H (74-99) mg/dL Calcium 10.1 8.2 L (8.4-10.2) mg/dL AST 29 25 (17-59) U/L ALT 13 L 21 (21-72) U/L Alkaline Phosphatase 86 58 (38-126) U/L Total Protein 8.1 5.4 L (6.3-8.2) g/dL Albumin 4.7 2.9 L (3.5-5.0) g/dL Current Medications Generic Name Dose Route Start Last Admin Trade Name Freq PRN Reason Stop Dose Admin Acetaminophen 650 mg 10/04/18 19:09 Tylenol Tab PO Q6HR PRN Mild Pain or Fever >= 100.5 Hydrocodone Bitart/Acetaminophen 1 each 10/04/18 19:09 [place] 5-325 PO Q4HR PRN Mild Pain Digoxin 125 mcg 10/05/18 09:00 10/05/18 09:06 Lanoxin PO 125 mcg DAILY MARY Administration Heparin Sodium (Porcine) 5,000 unit 10/04/18 21:00 10/05/18 08:43 Heparin SQ 5,000 unit Q12HR MARY Administration Hydromorphone HCl 0.5 mg 10/04/18 19:09 Dilaudid IVP Q3HR PRN Moderate to Severe Pain Piperacillin Sod/Tazobactam 100 mls @ 25 mls/hr 10/05/18 00:00 10/05/18 08:43 Sod 3.375 gm/ Sodium Chloride IVPB 25 mls/hr Q8HR MARY Administration Sodium Chloride 1,000 mls @ 75 mls/hr 10/04/18 13:15 10/05/18 08:43 Saline 0.9% IV 75 mls/hr .[id number] MARY Administration Metoprolol Tartrate 12.5 mg 10/04/18 22:45 10/05/18 09:06 Lopressor PO 12.5 mg BID MARY Administration Morphine Sulfate 4 mg 10/04/18 13:18 10/05/18 04:25 Morphine Sulfate (Inj) IV 4 mg Q4HR PRN Administration Severe Pain Naloxone HCl 0.2 mg 10/04/18 13:18 Narcan IV Q2M PRN Opioid Reversal Ondansetron HCl 4 mg 10/04/18 13:18 Zofran IVP Q8HR PRN Nausea And Vomiting Pantoprazole Sodium 40 mg 10/05/18 09:00 10/05/18 08:42 Protonix IV 40 mg DAILY MARY Administration Tamsulosin HCl 0.4 mg 10/05/18 09:00 10/05/18 09:06 Flomax PO 0.4 mg DAILY MARY Administration Intake and Output 10/04/18 10/05/18 10/05/18 22:59 06:59 14:59 Intake Total 3300 100 Output Total 570 650 400 Balance 2730 -550 -400 Intake: IV 800 Amount of Fluid Infused ( 2500 ml) Intake, IV Titration 100 Amount Piperacillin-Tazobactam 3 100 .375 gm In Sodium Chloride 0.9% 100 ml @ 25 mls/hr IVPB Q8HR [facility] Rx# :[id number] Output: Gastric Drainage 100 Urine 550 550 400 Estimated Blood Loss 20 Other: Voiding Method Indwelling Catheter Indwelling Catheter Weight 75 kg 10/05/18 06:08 10/05/18 06:08 EKG Interpretations (text) EKG shows a sinus tachycardia with occasional PVC. Assessment and Plan Plan: Assessment and plan #1 small bowel obstruction status post surgery #2 atrial tachycardia likely secondary to infection, lactic acid elevated on admission #3 hypertension #4 history of prior CVA with chronic dysarthria Plan We will obtain an echocardiogram with Doppler study as well as TSH level. The patient's rhythm strips and EKGs have been reviewed, it appears the patient is in atrial tachycardia persistently, with occasional PVCs. No evidence of atrial fibrillation. Patient's tachycardia is likely secondary to infection. We will initiate a small dose of beta cathy. We will continue to follow. DNP note has been reviewed, I agree with a documented findings and plan of care. Patient was seen and examined.
--- NOTE | 2018-10-05 12:44 | P.PN ---
Subjective Progress Note Date: 10/05/18 CHIEF COMPLAINT: Abdominal pain HISTORY OF PRESENT ILLNESS: 87-year-old male who is status post open exploratory laparotomy with lysis of adhesions, small bowel enterectomy with primary anastomosis, and open repair without mesh of recurrent right incarcerated ing uinal hernia. POD #1. Patient examined at the bedside this morning. His abdominal pain is tolerable. He has an NG to LIS with small amount of bilious drainage. Patient is complaining of NG tube causing discomfort. WBC 7.1. Hemoglobin 13.4. Potassium 4.2. Magnesium 1.8. Blood pressure stable. Heart rate remains in the 110s. Afebrile. PHYSICAL EXAM: VITAL SIGNS: Reviewed. Tachycardic. GENERAL: Well-developed in no acute distress. HEENT: NG tube to low intermittent suction. No sclera icterus. Extraocular movements grossly intact. Moist buccal mucosa. Head is atraumatic, normocephalic. Hears conversational speech. No nasal drainage. NECK: Supple without lymphadenopathy. CHEST: Non-labored respirations and equal bilateral excursions. CARDIOVASCULAR: Irregular rhythm. Palpable 2+ radial pulses. ABDOMEN: Soft. Nondistended. Minimal tenderness. Dressing to abdomen clean dry and intact. MUSCULOSKELETAL: No clubbing, cyanosis or edema. NEUROLOGIC: No focal or lateralizing signs. Cranial nerves II through XII grossly intact. PSYCH: Appropriate affect. Alert and oriented. SKIN: Well perfused. Good skin turgor. ASSESSMENT: 1. Acute strangulated right inguinal hernia with complete small bowel obstruction, status post open exploratory laparotomy with lysis of adhesions, small bowel enterectomy with primary anastomosis, and open repair without mesh of recurrent right incarcerated inguinal hernia 2. Lactic acidosis with tachycardia, meets sepsis criteria, POA 3. Atrial tachycardia, atrial fibrillation ruled out per cardiology PLAN: 1. Cardiology has evaluated the patient and ruled out atrial fibrillation. Beta cathy resumed per cardiology. 2. NG tube discontinued at the bedside. Patient may have ice chips and medications 3. Replace magnesium to maintain magnesium levels greater than 2.0 4. Incentive spirometry 5. Pain control 6. Activity as tolerated. Physical therapy and occupational therapy on consult 7. Social work consulted for possible ECF at the time of discharge Nurse practitioner note has been reviewed by physician. Signing provider agrees with the documented findings, assessment, and plan of care. Objective - Vital Signs Vital signs: Vital Signs Temp 98.3 F 10/05/18 07:30 Pulse 115 H 10/05/18 08:00 Resp 18 10/05/18 08:00 BP 134/78 10/05/18 07:30 Pulse Ox 96 10/05/18 07:32 Intake & Output 10/04/18 10/05/18 10/05/18 18:59 06:59 18:59 Intake Total 3300 100 Output Total 1195 925 400 Balance 2105 -825 -400 Weight 68.039 kg 75 kg Intake: IV 800 0 Amount of Fluid Infused ( 2500 ml) Intake, IV Titration 100 Amount Piperacillin-Tazobactam 3 100 .375 gm In Sodium Chloride 0.9% 100 ml @ 25 mls/hr IVPB Q8HR [facility] Rx# :[id number] Output: Gastric Drainage 900 100 Urine 275 825 400 Estimated Blood Loss 20 Other: Voiding Method Indwelling Catheter Indwelling Catheter - Labs CBC & Chem 7: 10/05/18 06:08 10/05/18 06:08 Labs: Abnormal Lab Results - Last 24 Hours (Table) 10/04/18 10/04/18 10/05/18 Range/Units 13:49 18:25 06:08 RBC 4.07 L (4.30-5.90) m/uL MCV 103.5 H (80.0-100.0) fL Lymphocytes # 0.7 L (1.0-4.8) k/uL Chloride (98-107) mmol/L BUN (9-20) mg/dL Glucose (74-99) mg/dL Plasma Lactic Acid Angelo 2.1 H* 2.7 H* (0.7-2.0) mmol/L Calcium (8.4-10.2) mg/dL Total Protein (6.3-8.2) g/dL Albumin (3.5-5.0) g/dL 10/05/18 Range/Units 06:08 RBC (4.30-5.90) m/uL MCV (80.0-100.0) fL Lymphocytes # (1.0-4.8) k/uL Chloride 110 H (98-107) mmol/L BUN 33 H (9-20) mg/dL Glucose 120 H (74-99) mg/dL Plasma Lactic Acid Angelo (0.7-2.0) mmol/L Calcium 8.2 L (8.4-10.2) mg/dL Total Protein 5.4 L (6.3-8.2) g/dL Albumin 2.9 L (3.5-5.0) g/dL Assessment and Plan (1) Right inguinal hernia Current Visit: Yes Status: Acute Code(s): K40.90 - UNIL INGUINAL HERNIA, W/O OBST OR GANGR, NOT SPCF RECUR SNOMED Code(s): 205532189 (2) Small bowel obstruction Current Visit: Yes Status: Acute Code(s): K56.609 - UNSP INTESTNL OBST, UNSP TO PARTIAL VERSUS COMPLETE OBST SNOMED Code(s): 176247842
[2018-10-05] MEDS: MAGNESIUM SULFATE-D5W PMX 1 GM in DEXTROSE/WATER 1 100ML.BAG IVPB SCH ×2 (12:46→13:00)
--- NOTE | 2018-10-05 18:57 | ECHOF ---
Referral Reason:tachycardia MEASUREMENTS -------- HEIGHT: 170.2 cm WEIGHT: 74.8 kg BP: 134/78 RVIDd: 3.6 cm (< 3.3) IVSd: 1.1 cm (0.6 - 1.1) LVIDd: 3.9 cm (3.9 - 5.3) LVPWd: 1.2 cm (0.6 - 1.1) IVSs: 1.5 cm LVIDs: 3.3 cm LVPWs: 1.9 cm LA Diam: 4.5 cm (2.7 - 3.8) LAESV Index (A-L): 36.13 ml/m Ao Diam: 3.0 cm (2.0 - 3.7) AV Cusp: 1.7 cm (1.5 - 2.6) MV EXCURSION: 19.436 mm (> 18.000) MV EF SLOPE: 202 mm/s (70 - 150) EPSS: 0.2 cm MV E Durga: 1.13 m/s MV DecT: 130 ms MV A Durga: 0.69 m/s MV E/A Ratio: 1.64 RAP: 5.00 mmHg RVSP: 39.38 mmHg FINDINGS -------- Resting tachycardia (HR>100bpm). This was a technically adequate study. The left ventricular size is normal. There is borderline concentric left ventricular hypertrophy. Overall left ventricular systolic function is moderately impaired with, an EF between 35 - 40 %. A nterseptal Hypokinesis The right ventricle is mildly enlarged. LA is moderately dilated 34-39 ml/m2 The right atrium is normal in size. Lipomatous hypertrophy of atrial septum. There is moderate aortic valve sclerosis. The mitral valve leaflets are moderately thickened. Mild mitral annular calcification present. Mi [id number] mitral regurgitation is present. Mild tricuspid regurgitation present. There is mild pulmonary hypertension. The right ventricular systolic pressure, as measured by Doppler, is 39.38mmHg. Trace/mild (physiologic) pulmonic regurgitation. The aortic root size is normal. There is no pericardial effusion. CONCLUSIONS -------- 1. Resting tachycardia (HR>100bpm). 2. This was a technically adequate study. 3. The left ventricular size is normal. 4. There is borderline concentric left ventricular hypertrophy. 5. Overall left ventricular systolic function is moderately impaired with, an EF between 35 - 40 %. 6. Anterseptal Hypokinesis 7. The right ventricle is mildly enlarged. 8. LA is moderately dilated 34-39 ml/m2 9. The right atrium is normal in size. 10. Lipomatous hypertrophy of atrial septum. 11. There is moderate aortic valve sclerosis. 12. The mitral valve leaflets are moderately thickened. 13. Mild mitral annular calcification present. 14. [id number] mitral regurgitation is present. 15. Mild tricuspid regurgitation present. 16. There is mild pulmonary hypertension. 17. The right ventricular systolic pressure, as measured by Doppler, is 39.38mmHg. 18. Trace/mild (physiologic) pulmonic regurgitation. 19. The aortic root size is normal. 20. There is no pericardial effusion. STUDIO MODEL: Shantell Christopher RDCS
--- NOTE | 2018-10-05 19:43 | P.PN ---
Progress Note - Text Progress Note Date: 10/05/18 Interval history: This is a 87-year-old patient who follows with Dr. Parada. Chronic stable med ical conditions include intermittent asthma, dysarthria from a prior stroke, BPH, possible atrial fibrillation. Patient had presented to the ER with 2 days of increasing pain in the right inguinal area. Pain was localized to the right groin. No fever no chills. Nausea vomiting. Had not had a bowel movement for 2 days. A computed tomography scan showed a high-grade small bowel obstruction with a transition point. Patient was taken to the OR. 4 cm of the jejunal was taken out. End to end anastomosis was done. NG tube was placed Today-sitting up in a chair. NG tube is out. Allowed ice chips. No flatus. Pain is controlled. No nausea vomiting. Family present. Review of systems: Was done for constitutional, cardiovascular, GI, pulmonary. relevant finding as above Active Medications Acetaminophen (Tylenol Tab) 650 mg PO Q6HR PRN PRN Reason: Mild Pain or Fever >= 100.5 Last Admin: 10/05/18 17:23 Dose: 650 mg Documented by: Hydrocodone Bitart/Acetaminophen ([place] 5-325) 1 each PO Q4HR PRN PRN Reason: Mild Pain Heparin Sodium (Porcine) (Heparin) 5,000 unit SQ Q12HR [facility] Last Admin: 10/05/18 08:43 Dose: 5,000 unit Documented by: Hydromorphone HCl (Dilaudid) 0.5 mg IVP Q3HR PRN PRN Reason: Moderate to Severe Pain Piperacillin Sod/Tazobactam (Sod 3.375 gm/ Sodium Chloride) 100 mls @ 25 mls/hr IVPB Q8HR [facility] Last Admin: 10/05/18 16:54 Dose: 25 mls/hr Documented by: Sodium Chloride (Saline 0.9%) 1,000 mls @ 75 mls/hr IV .[id number] [facility] Last Admin: 10/05/18 08:43 Dose: 75 mls/hr Documented by: Metoprolol Tartrate (Lopressor) 25 mg PO BID [facility] Morphine Sulfate (Morphine Sulfate (Inj)) 4 mg IV Q4HR PRN PRN Reason: Severe Pain Last Admin: 10/05/18 04:25 Dose: 4 mg Documented by: Naloxone HCl (Narcan) 0.2 mg IV Q2M PRN PRN Reason: Opioid Reversal Ondansetron HCl (Zofran) 4 mg IVP Q8HR PRN PRN Reason: Nausea And Vomiting Pantoprazole Sodium (Protonix) 40 mg IV DAILY [facility] Last Admin: 10/05/18 08:42 Dose: 40 mg Documented by: Tamsulosin HCl (Flomax) 0.4 mg PO DAILY [facility] Last Admin: 10/05/18 09:06 Dose: 0.4 mg Documented by: Physical examination: VITAL SIGNS: 98.3, 113, 18, 144/94, 97% on 2 L GENERAL: Sitting up in a chair, awake. EYES: Pupils equal. Conjunctiva normal. HEENT: External appearance of nose and ears normal, oral cavity dry, NG tube in place. NECK: JVD not raised; masses not palpable. HEART: First and second heart sounds are normal; no edema. LUNGS: Respiratory rate normal; clear to auscultation. ABDOMEN: Soft, tender, bowel sounds are sluggish, binder in place. Unable to assess for liver and spleen.. PSYCH: Awake answering questions. NEUROLOGICAL: Cranial nerves grossly intact; no facial asymmetry, power and sensation grossly intact. Patient has got dysarthria. INVESTIGATIONS, reviewed in the clinical context: : White count 7.1 hemoglobin 13.4 potassium 4.2 creatinine 0.98 Telemetry shows sinus tachycardia with some PVCs Previous tests: Of Dr. 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 Care was discussed with the family the bedside. Patient allowed ice chips. Encouraged to ablate. Follow closely. Thank you Dr. Osborne
[2018-10-05] MEDS: METOPROLOL TARTRATE 25 MG TAB PO SCH (20:06)
[2018-10-06] MEDS: SODIUM CHLORIDE 0.9% 1,000 ML IV SCH ×2 (05:45→07:38)
[2018-10-06] MEDS: HEPARIN SODIUM,PORCINE 5,000 UNIT/ML 1 ML VIAL SQ SCH (08:08)
[2018-10-06] MEDS: TAMSULOSIN 0.4 MG CAP.ER.24H PO SCH (08:08)
[2018-10-06] MEDS: PIPERACILLIN-TAZOBACTAM 3.375 GM in SODIUM CHLORIDE 0.9% 100 ML IVPB SCH ×3 (08:08→23:11)
[2018-10-06] MEDS: METOPROLOL TARTRATE 25 MG TAB PO SCH ×4 (08:08→21:45)
[2018-10-06] MEDS: PANTOPRAZOLE 40 MG/10 ML VIAL IV SCH (08:09)
[2018-10-06] MEDS: LISINOPRIL 10 MG TAB PO SCH (08:29)
[2018-10-06] MEDS ORDERED: SODIUM CHLORIDE 0.9% 500 ML 500 ML IV ONE (11:25)
[2018-10-06 11:48] LABS: Basophils % (A) 0 %; Eosinophils % (A) 0 %; HCT 45.4 % (39.0-53.0); Lymphocytes # (A) 0.7 k/uL (1.0-4.8); Lymphocytes % (A) 10 %; MCH 32.4 pg (25.0-35.0); MCHC 30.8 g/dL (31.0-37.0); MCV 105.4 fL (80.0-100.0); Macrocytosis Slight; Mean Platelet Volume 7.2; Monocytes # (A) 0.6 k/uL (0-1.0); Monocytes % (A) 7 %; Neutrophils # (A) 5.9 k/uL (1.3-7.7); Neutrophils % (A) 81 %; Platelet Count 193 k/uL (150-450); WBC 7.3 k/uL (3.8-10.6)
[2018-10-06 11:55] LABS: Calcium 8.4 mg/dL (8.4-10.2)
--- NOTE | 2018-10-06 12:29 | P.PN ---
Subjective Progress Note Date: 10/06/18 This is an 87-year-old gentleman, the history was somewhat difficult to obtain from the patient, most of it was obtained from the medical record. Patient has had a prior stroke and has dysarthria from that. He does have history of asthma, he does take a beta cathy as well as Lanoxin at home, but he is unsure if he has any history of atrial fibrillation in the past, mild hypertension, nondiabetic, no high cholesterol. He presented to the hospital with symptoms of abdominal discomfort, not having had a bowel movement for the past 2-3 days prior to admission here, he was found to have a high-grade small bowel obstruction and was taken to the emergency room where he underwent surgery. Patient is noted to be in atrial tachycardia with occasional PVC , cardiology consultation has been requested for possible atrial fibrillation.. Blood pressure this morning 134/70 with a heart rate in the 1 teens, 96% on 2 L of oxygen. White blood cell count 7.1, hemoglobin 13.4, platelet count 167. Sodium 142, potassium 4.2, BUN 33 and creatinine 0.9. Magnesium is 1.8. Patient is sitting up in the chair at bedside at this morning, NG tube has been removed. 10/06/2018 Patient seen and examined this morning, sitting up in his chair at bedside. Blood pressure 134/90, heart rate 110, 96% on 2 L of oxygen. White blood cell count 7.3, hemoglobin 14, platelet count 193. Sodium 140, potassium 4.0, BUN 33 and creatinine 0.9. We will increase the dose of metoprolol 25 mg by mouth 3 times a day today. Continue the rest of the patient's medications. Objective - Vital Signs Vital signs: Vital Signs Temp 97 F L 10/06/18 11:39 Pulse 111 H 10/06/18 12:00 Resp 18 10/06/18 12:00 BP 134/93 10/06/18 11:39 Pulse Ox 96 10/06/18 11:39 Intake & Output 10/05/18 10/06/18 10/06/18 18:59 06:59 18:59 Intake Total 920 Output Total 1050 Balance -1050 920 Weight 75 kg 69.1 kg Intake: Intake, IV Titration 800 Amount Sodium Chloride 0.9% 1, 800 000 ml @ 75 mls/hr IV . [id number] [facility] Rx#:[id number] Oral 120 Output: Urine 1050 Uretheral (Shea) 350 Other: Voiding Method Indwelling Catheter Indwelling Catheter Indwelling Catheter - Exam PHYSICAL EXAMINATION: GENERAL: 87-year-old gentleman in no acute distress at the time of my examination HEENT: Head is atraumatic, normocephalic. Pupils equal, round. Sclera anicteric. Conjunctiva are clear. Mucous membranes of the mouth are moist. Neck is supple. There is no elevated jugular venous pressure. No carotid brui t is heard. HEART EXAMINATION: Heart S1 and S2 irregularly irregular a systolic murmur is heard CHEST EXAMINATION: Lungs reveal scattered coarse rhonchi that clear with cough. ABDOMEN: Soft, mild generalized tenderness, bowel sounds are sluggish, abdominal binder is in place.. EXTREMITIES: 2+ peripheral pulses with no evidence of peripheral edema and no calf tenderness noted. Venodyne's in place. NEUROLOGIC patient is awake, alert and oriented 3, positive dysarthria secondary to CVA.. - Labs CBC & Chem 7: 10/06/18 11:31 10/06/18 11:31 Labs: Abnormal Lab Results - Last 24 Hours (Table) 10/06/18 10/06/18 Range/Units 11:31 11:31 MCV 105.4 H (80.0-100.0) fL MCHC 30.8 L (31.0-37.0) g/dL Lymphocytes # 0.7 L (1.0-4.8) k/uL BUN 33 H (9-20) mg/dL Glucose 115 H (74-99) mg/dL Microbiology - Last 24 Hours (Table) 10/04/18 13:49 Blood Culture - Preliminary Blood No Growth after 24 hours Assessment and Plan Plan: Assessment and plan #1 small bowel obstruction status post surgery #2 atrial tachycardia likely secondary to infection, lactic acid elevated on admission #3 hypertension #4 history of prior CVA with chronic dysarthria Plan Echocardiogram with Doppler study was performed which revealed an ejection fraction of 35-40% with evidence of anterior septal hypokinesia. We will increase the dose of beta cathy today for more optimal heart rate control and add a small dose of SASHA inhibitor to her medication regime. DNP note has been reviewed, I agree with a documented findings and plan of care. Patient was seen and examined.
--- NOTE | 2018-10-06 13:46 | P.PN ---
Subjective Progress Note Date: 10/06/18 CHIEF COMPLAINT: Abdominal pain HISTORY OF PRESENT ILLNESS: 87-year-old male who is status post open exploratory laparotomy with lysis of adhesions, small bowel enterectomy with primary anastomosis, and open repair without mesh of recurrent right incarcerated ing uinal hernia. POD #2. Patient is examined this morning sitting in a chair. He is tolerating ice chips. He denies passing flatus. Denies BM. Shea catheter with bloody drainage. Patient and nurse deny trauma to catheter. PHYSICAL EXAM: VITAL SIGNS: Reviewed. Tachycardic. GENERAL: Well-developed in no acute distress. HEENT: No sclera icterus. Extraocular movements grossly intact. Moist buccal mucosa. Head is atraumatic, normocephalic. Hears conversational speech. No nasal drainage. NECK: Supple without lymphadenopathy. CHEST: Non-labored respirations and equal bilateral excursions. CARDIOVASCULAR: Irregular rhythm. Palpable 2+ radial pulses. ABDOMEN: Soft. Mildly distended. Minimal tenderness. Dressing to abdomen clean dry and intact. MUSCULOSKELETAL: No clubbing, cyanosis or edema. NEUROLOGIC: No focal or lateralizing signs. Cranial nerves II through XII grossly intact. PSYCH: Appropriate affect. Alert and oriented. SKIN: Well perfused. Good skin turgor. ASSESSMENT: 1. Acute strangulated right inguinal hernia with complete small bowel obstruction, status post open exploratory laparotomy with lysis of adhesions, s mall bowel enterectomy with primary anastomosis, and open repair without mesh of recurrent right incarcerated inguinal hernia 2. Lactic acidosis with tachycardia, meets sepsis criteria, POA 3. Atrial tachycardia, atrial fibrillation ruled out per cardiology 4. Hematuria PLAN: 1. Cardiology has evaluated the patient and ruled out atrial fibrillation. Beta cathy resumed per cardiology and dose increased today secondary to tachycardia. 2. Consult urology for evaluation of hematuria. Will DC heparin SC. Continue SCDs for DVT prophylaxis 3. Begin clear liquid diet 4. 500 mL bolus secondary to decreased urine output 5. Pain control 6. Incentive spirometry 7. Increase activity as tolerated. PT/OT on consult 8. Social work consulted for possible ECF at the time of discharge Nurse practitioner note has been reviewed by physician. Signing provider agrees with the documented findings, assessment, and plan of care. Objective - Vital Signs Vital signs: Vital Signs Temp 97 F L 10/06/18 11:39 Pulse 111 H 10/06/18 12:00 Resp 18 10/06/18 12:00 BP 134/93 10/06/18 11:39 Pulse Ox 96 10/06/18 11:39 Intake & Output 10/05/18 10/06/18 10/06/18 18:59 06:59 18:59 Intake Total 920 Output Total 1050 Balance -1050 920 Weight 75 kg 69.1 kg Intake: Intake, IV Titration 800 Amount Sodium Chloride 0.9% 1, 800 000 ml @ 75 mls/hr IV . [id number] [facility] Rx#:[id number] Oral 120 Output: Urine 1050 Uretheral (Shea) 350 Other: Voiding Method Indwelling Catheter Indwelling Catheter Indwelling Catheter - Labs CBC & Chem 7: 10/06/18 11:31 10/06/18 11:31 Labs: Abnormal Lab Results - Last 24 Hours (Table) 10/06/18 10/06/18 Range/Units 11:31 11:31 MCV 105.4 H (80.0-100.0) fL MCHC 30.8 L (31.0-37.0) g/dL Lymphocytes # 0.7 L (1.0-4.8) k/uL BUN 33 H (9-20) mg/dL Glucose 115 H (74-99) mg/dL Microbiology - Last 24 Hours (Table) 10/04/18 13:49 Blood Culture - Preliminary Blood No Growth after 24 hours Assessment and Plan (1) Right inguinal hernia Current Visit: Yes Status: Acute Code(s): K40.90 - UNIL INGUINAL HERNIA, W/O OBST OR GANGR, NOT SPCF RECUR SNOMED Code(s): 113214751 (2) Small bowel obstruction Current Visit: Yes Status: Acute Code(s): K56.609 - UNSP INTESTNL OBST, UNSP TO PARTIAL VERSUS COMPLETE OBST SNOMED Code(s): 093323423
--- NOTE | 2018-10-06 16:24 | P.PN ---
Progress Note - Text Progress Note Date: 10/06/18 Interval history: This is a 87-year-old patient who follows with Dr. Parada. Chronic stable med ical conditions include intermittent asthma, dysarthria from a prior stroke, BPH, possible atrial fibrillation. Patient had presented to the ER with 2 days of increasing pain in the right inguinal area. Pain was localized to the right groin. No fever no chills. Nausea vomiting. Had not had a bowel movement for 2 days. A computed tomography scan showed a high-grade small bowel obstruction with a transition point. Patient was taken to the OR. 4 cm of the jejunal was taken out. End to end anastomosis was done. NG tube was placed Today-sitting up in a chair. Shea catheter in place. Some hematuria. Had bladder wash done earlier. Was on ice chips. No abdominal pain. Family present.. Review of systems: Was done for constitutional, cardiovascular, GI, pulmonary. relevant finding as above Active Medications Acetaminophen (Tylenol Tab) 650 mg PO Q6HR PRN PRN Reason: Mild Pain or Fever >= 100.5 Last Admin: 10/05/18 17:23 Dose: 650 mg Documented by: Hydrocodone Bitart/Acetaminophen ([place] 5-325) 1 each PO Q4HR PRN PRN Reason: Mild Pain Hydromorphone HCl (Dilaudid) 0.5 mg IVP Q3HR PRN PRN Reason: Moderate to Severe Pain Piperacillin Sod/Tazobactam (Sod 3.375 gm/ Sodium Chloride) 100 mls @ 25 mls/hr IVPB Q8HR [facility] Last Admin: 10/06/18 16:18 Dose: 25 mls/hr Documented by: Sodium Chloride (Saline 0.9%) 1,000 mls @ 75 mls/hr IV .[id number] [facility] Last Admin: 10/06/18 07:38 Dose: Not Given Documented by: Lisinopril (Zestril) 10 mg PO DAILY [facility] Last Admin: 10/06/18 08:29 Dose: 10 mg Documented by: Metoprolol Tartrate (Lopressor) 25 mg PO TID [facility] Last Admin: 10/06/18 16:18 Dose: 25 mg Documented by: Morphine Sulfate (Morphine Sulfate (Inj)) 4 mg IV Q4HR PRN PRN Reason: Severe Pain Last Admin: 10/05/18 04:25 Dose: 4 mg Documented by: Naloxone HCl (Narcan) 0.2 mg IV Q2M PRN PRN Reason: Opioid Reversal Ondansetron HCl (Zofran) 4 mg IVP Q8HR PRN PRN Reason: Nausea And Vomiting Pantoprazole Sodium (Protonix) 40 mg IV DAILY [facility] Last Admin: 10/06/18 08:09 Dose: 40 mg Documented by: Tamsulosin HCl (Flomax) 0.4 mg PO DAILY [facility] Last Admin: 10/06/18 08:08 Dose: 0.4 mg Documented by: Physical examination: VITAL SIGNS: 97, 111, 18, 134/93, 96% on 2 L GENERAL: Sitting up in a chair, awake. EYES: Pupils equal. Conjunctiva normal. HEENT: External appearance of nose and ears normal, oral cavity dry, NG tube in place. NECK: JVD not raised; masses not palpable. HEART: First and second heart sounds are normal; no edema. LUNGS: Respiratory rate normal; clear to auscultation. ABDOMEN: Soft, tender, bowel sounds are sluggish, binder in place. Unable to assess for liver and spleen.. PSYCH: Awake answering questions. NEUROLOGICAL: Cranial nerves grossly intact; no facial asymmetry, power and sensation grossly intact. Patient has got dysarthria. 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 Care was discussed with the patient and family the bedside. Getting bladder wash. This is a known patient that was increased to clear liquid. By surgery. They also consulted urology.
--- NOTE | 2018-10-06 17:26 | P.GSCN ---
History of Present Illness Consult date: 10/06/18 Reason for Consult: Gross hematuria History of present illness: The patient is an 87-year-old gentleman in the hospital with a small bowel obst ruction. This required lysis of adhesions. He had an indwelling catheter. He subsequently developed some blood. We were asked see the patient for this reason. He had a clear urinalysis on admission. The history is mostly taken from the is a patient is somewhat dysarthric from his previous stroke. She states that there is been no blood. He voids relatively well. Review of Systems All systems: negative - Constitutional Denies fever, Denies weight loss - EENT Eyes: denies blurred vision Ears, nose, mouth and throat: Denies dysphagia - Cardiovascular Denies chest pain, Denies shortness of breath - Respiratory Denies cough, Denies 7 - Gastrointestinal Reports as per HPI - Genitourinary Denies dysuria, Denies hematuria - Integumentary Denies rash, Denies unusual bruising - Neurological Denies headaches, Denies syncope - Hematologic/Lymphatic Denies easy bleeding, Denies easy bruising Past Medical History Past Medical History: Atrial Fibrillation, CVA/TIA History of Any Multi-Drug Resistant Organisms: None Reported Past Surgical History: Appendectomy, Hernia Repair, Orthopedic Surgery Past Psychological History: No Psychological Hx Reported Smoking Status: Never smoker Past Alcohol Use History: Daily Past Drug Use History: None Reported - Past Family History Father Additional Family Medical History / Comment(s): Cancer Mother Additional Family Medical History / Comment(s): Breast CA Sister(s) Additional Family Medical History / Comment(s): 2 sisters with breast CA Brother(s) Family Medical History: Myocardial Infarction ([place]) Additional Family Medical History / Comment(s): Lung CA Medications and Allergies Home Medications Medication Instructions Recorded Confirmed Type Digoxin [Lanoxin] 125 mcg PO DAILY 10/04/18 10/04/18 History Levalbuterol Nebulized [Xopenex 1.25 mg INHALATION RT-TID PRN 10/04/18 10/04/18 History Nebulized] Metoprolol Tartrate [Lopressor] 12.5 mg PO DAILY 10/04/18 10/04/18 History Tamsulosin HCl [Flomax] 0.4 mg PO DAILY 10/04/18 10/04/18 History Allergies Allergy/AdvReac Type Severity Reaction Status Date / Time cefuroxime [From Ceftin] Allergy Rash/Hives Verified 10/04/18 09:48 Surgical - Exam Vital Signs Temp Pulse Resp BP Pulse Ox 98 F 113 H 18 113/93 93 L 10/04/18 09:13 10/04/18 09:13 10/04/18 09:13 10/04/18 09:13 10/04/18 09:13 - General well developed, well nourished, no distress - Eyes PERRL - ENT no hearing loss - Neck no masses, trachea midline - Respiratory normal expansion, normal respiratory effort - Cardiovascular Rhythm: regular - Abdomen Abdomen: soft, non tender - Genitourinary Normal penis and testes, indwelling catheter with old blood in the urine. - Musculoskeletal normal posture - Psychiatric Dysarthria from previous stroke Results - Labs 10/06/18 11:31 10/06/18 11:31 Abnormal Lab Results - Last 24 Hours (Table) 10/06/18 10/06/18 Range/Units 11:31 11:31 MCV 105.4 H (80.0-100.0) fL MCHC 30.8 L (31.0-37.0) g/dL Lymphocytes # 0.7 L (1.0-4.8) k/uL BUN 33 H (9-20) mg/dL Glucose 115 H (74-99) mg/dL Microbiology - Last 24 Hours (Table) 10/04/18 13:49 Blood Culture - Preliminary Blood No Growth after 48 hours Diabetes panel 10/06/18 Range/Units 11:31 Sodium 141 (137-145) mmol/L Potassium 4.0 (3.5-5.1) mmol/L Chloride 107 (98-107) mmol/L Carbon Dioxide 29 (22-30) mmol/L BUN 33 H (9-20) mg/dL Creatinine 0.93 (0.66-1.25) mg/dL Glucose 115 H (74-99) mg/dL Calcium 8.4 (8.4-10.2) mg/dL Calcium panel 10/06/18 Range/Units 11:31 Calcium 8.4 (8.4-10.2) mg/dL Pituitary panel 10/06/18 Range/Units 11:31 Sodium 141 (137-145) mmol/L Potassium 4.0 (3.5-5.1) mmol/L Chloride 107 (98-107) mmol/L Carbon Dioxide 29 (22-30) mmol/L BUN 33 H (9-20) mg/dL Creatinine 0.93 (0.66-1.25) mg/dL Glucose 115 H (74-99) mg/dL Calcium 8.4 (8.4-10.2) mg/dL Adrenal panel 10/06/18 Range/Units 11:31 Sodium 141 (137-145) mmol/L Potassium 4.0 (3.5-5.1) mmol/L Chloride 107 (98-107) mmol/L Carbon Dioxide 29 (22-30) mmol/L BUN 33 H (9-20) mg/dL Creatinine 0.93 (0.66-1.25) mg/dL Glucose 115 H (74-99) mg/dL Calcium 8.4 (8.4-10.2) mg/dL Assessment and Plan Assessment: Impression: gross hematuria secondary to catheter trauma. Recommendations: The patient had normal urine upon admission. He has had hematuria secondary to the catheter. Nothing further urologic needs to be done. The catheter may be removed and medically stable. please contact us with her further urologic issues.
[2018-10-07 05:59] LABS: HCT 38.2 % (39.0-53.0); HGB 12.1 gm/dL (13.0-17.5); MCH 32.5 pg (25.0-35.0); MCHC 31.7 g/dL (31.0-37.0); MCV 102.7 fL (80.0-100.0); Macrocytosis Slight; Mean Platelet Volume 7.7; Platelet Count 171 k/uL (150-450); RBC 3.71 m/uL (4.30-5.90); RDW 13.1 % (11.5-15.5); WBC 5.9 k/uL (3.8-10.6)
[2018-10-07 06:07] LABS: African American GFR (CKD) >90 (>60 ml/min/1.73 sqM); Anion Gap 2 mmol/L; Blood Urea Nitrogen 27 mg/dL (9-20); Carbon Dioxide 31 mmol/L (22-30); Chloride 106 mmol/L (98-107); Glucose 90 mg/dL (74-99); Sodium 139 mmol/L (137-145)
[2018-10-07] MEDS: METOPROLOL TARTRATE 25 MG TAB PO SCH ×3 (09:05→21:53)
[2018-10-07] MEDS: LISINOPRIL 10 MG TAB PO SCH (09:06)
[2018-10-07] MEDS: PIPERACILLIN-TAZOBACTAM 3.375 GM in SODIUM CHLORIDE 0.9% 100 ML IVPB SCH ×2 (09:06→16:19)
[2018-10-07] MEDS: PANTOPRAZOLE 40 MG/10 ML VIAL IV SCH (09:06)
[2018-10-07] MEDS: TAMSULOSIN 0.4 MG CAP.ER.24H PO SCH (09:06)
[2018-10-07] MEDS: SODIUM CHLORIDE 0.9% 1,000 ML IV SCH ×2 (09:07→21:53)
--- NOTE | 2018-10-07 09:52 | P.PN ---
<Jessica Farah Celeste - Last Filed: 10/07/18 09:51> Subjective Progress Note Date: 10/07/18 CHIEF COMPLAINT: Abdominal pain HISTORY OF PRESENT ILLNESS: 87-year-old male who is status post open exploratory laparotomy with lysis of adhesions, small bowel enterectomy with primary anast omosis, and open repair without mesh of recurrent right incarcerated inguinal hernia. POD #3. Patient examined this morning at the bedside. Patient denies abdominal pain. He is tolerating clear liquid diet. He denies nausea or vomiting. No BM. Patient unsure if he is passing flatus. Bright red blood from noe catheter has resolved. Urine output appears to be improving. Patient assisted to chair this morning with 1-2 person assistance. WBC 7.9. Hemoglobin 12.1. PHYSICAL EXAM: VITAL SIGNS: Reviewed. Tachycardic. GENERAL: Well-developed in no acute distress. HEENT: No sclera icterus. Extraocular movements grossly intact. Moist buccal mucosa. Head is atraumatic, normocephalic. Hears conversational speech. No nasal drainage. NECK: Supple without lymphadenopathy. CHEST: Non-labored respirations and equal bilateral excursions. CARDIOVASCULAR: Irregular rhythm. Palpable 2+ radial pulses. ABDOMEN: Soft. Mildly distended. Minimal tenderness. Dressing to abdomen with drainage present. MUSCULOSKELETAL: No clubbing, cyanosis or edema. NEUROLOGIC: No focal or lateralizing signs. Cranial nerves II through XII grossly intact. Speech difficult to understand at times due to previous CVA. PSYCH: Appropriate affect. Alert and oriented. SKIN: Well perfused. Good skin turgor. ASSESSMENT: 1. Acute strangulated right inguinal hernia with complete small bowel obstruction, status post open exploratory laparotomy with lysis of adhesions, small bowel enterectomy with primary anastomosis, and open repair without mesh of recurrent right incarcerated inguinal hernia 2. Lactic acidosis with tachycardia, meets sepsis criteria, POA 3. Atrial tachycardia, atrial fibrillation ruled out per cardiology 4. Hematuria PLAN: 1. Cardiology has evaluated the patient and ruled out atrial fibrillation. Beta cathy resumed per cardiology and dose increased secondary to tachycardia. 2. Hematuria resolved. Will re-initiate subcu heparin. Continue SCDs for DVT prophylaxis while in bed. 3. Obtain abdominal XR. Will advance to full liquid pending XR results. 4. Discontinue urinary catheter 5. Pain control 6. Incentive spirometry 7. Increase activity as tolerated. PT/OT on consult 8. Patient will likely require ECF at the time of discharge Nurse practitioner note has been reviewed by physician. Signing provider agrees with the documented findings, assessment, and plan of care. Objective - Vital Signs Vital signs: Vital Signs Temp 98.2 F 10/06/18 23:47 Pulse 110 H 10/07/18 04:00 Resp 18 10/07/18 04:00 BP 134/89 10/07/18 04:00 Pulse Ox 98 10/07/18 04:00 Intake & Output 10/06/18 10/07/18 10/07/18 18:59 06:59 18:59 Intake Total 1160 Output Total 500 Balance 1160 -500 Weight 80.5 kg Intake: Intake, IV Titration 800 Amount Sodium Chloride 0.9% 1, 800 000 ml @ 75 mls/hr IV . [id number] [facility] Rx#:[id number] Oral 360 Output: Urine 500 Other: Voiding Method Indwelling Catheter Indwelling Catheter - Labs CBC & Chem 7: 10/07/18 05:37 10/07/18 05:37 Labs: Abnormal Lab Results - Last 24 Hours (Table) 10/06/18 10/06/18 10/07/18 Range/Units 11:31 11:31 05:37 RBC 3.71 L (4.30-5.90) m/uL Hgb 12.1 L (13.0-17.5) gm/dL Hct 38.2 L (39.0-53.0) % MCV 105.4 H 102.7 H (80.0-100.0) fL MCHC 30.8 L (31.0-37.0) g/dL Lymphocytes # 0.7 L (1.0-4.8) k/uL Carbon Dioxide (22-30) mmol/L BUN 33 H (9-20) mg/dL Glucose 115 H (74-99) mg/dL Calcium (8.4-10.2) mg/dL 10/07/18 Range/Units 05:37 RBC (4.30-5.90) m/uL Hgb (13.0-17.5) gm/dL Hct (39.0-53.0) % MCV (80.0-100.0) fL MCHC (31.0-37.0) g/dL Lymphocytes # (1.0-4.8) k/uL Carbon Dioxide 31 H (22-30) mmol/L BUN 27 H (9-20) mg/dL Glucose (74-99) mg/dL Calcium 8.0 L (8.4-10.2) mg/dL Microbiology - Last 24 Hours (Table) 10/04/18 13:49 Blood Culture - Preliminary Blood No Growth after 48 hours Assessment and Plan (1) Right inguinal hernia Current Visit: Yes Status: Acute Code(s): K40.90 - UNIL INGUINAL HERNIA, W/O OBST OR GANGR, NOT SPCF RECUR SNOMED Code(s): 467177334 (2) Small bowel obstruction Current Visit: Yes Status: Acute Code(s): K56.609 - UNSP INTESTNL OBST, UNSP TO PARTIAL VERSUS COMPLETE OBST SNOMED Code(s): 180187364 <Emily Ledesma N - Last Filed: 10/07/18 22:51> Subjective I personally spoke to his at bedside who also confirms that he is doing well. She reports he uses Xopenex for his breathing. Otherwise, he is tolerating diet. Will need rectal suppository. Start Xopenex and will advance diet. Potential discharge in 24 to 48 hrs. Objective - Vital Signs Vital signs: Vital Signs Temp 98.4 F 10/07/18 20:00 Pulse 107 H 10/07/18 20:00 Resp 16 10/07/18 20:00 BP 138/92 10/07/18 20:00 Pulse Ox 95 10/07/18 20:00 Intake & Output 10/07/18 10/07/18 10/08/18 06:59 18:59 06:59 Intake Total 480 Output Total 500 550 Balance -500 -70 Weight 80.5 kg Intake: Oral 480 Output: Urine 500 550 Other: Voiding Method Indwelling Catheter Indwelling Catheter # Voids 1 # Bowel Movements 0 - Labs CBC & Chem 7: 10/07/18 05:37 10/07/18 05:37 Labs: Abnormal Lab Results - Last 24 Hours (Table) 10/07/18 10/07/18 Range/Units 05:37 05:37 RBC 3.71 L (4.30-5.90) m/uL Hgb 12.1 L (13.0-17.5) gm/dL Hct 38.2 L (39.0-53.0) % MCV 102.7 H (80.0-100.0) fL Carbon Dioxide 31 H (22-30) mmol/L BUN 27 H (9-20) mg/dL Calcium 8.0 L (8.4-10.2) mg/dL Microbiology - Last 24 Hours (Table) 10/04/18 13:49 Blood Culture - Preliminary Blood No Growth after 72 hours Assessment and Plan (1) Atrial fibrillation with RVR Current Visit: Yes Status: Acute Code(s): I48.91 - UNSPECIFIED ATRIAL FIBRILLATION SNOMED Code(s): 738580251477449 (2) Chronic atrial fibrillation with RVR Current Visit: Yes Status: Acute Code(s): I48.2 - CHRONIC ATRIAL FIBRILLATION SNOMED Code(s): 165325712 (3) Ischemic bowel disease Current Visit: Yes Status: Acute Code(s): K55.9 - VASCULAR DISORDER OF INTESTINE, UNSPECIFIED SNOMED Code(s): 89909568 (4) Right inguinal hernia Current Visit: Yes Status: Acute Code(s): K40.90 - UNIL INGUINAL HERNIA, W/O OBST OR GANGR, NOT SPCF RECUR SNOMED Code(s): 641019875 (5) Small bowel obstruction Current Visit: Yes Status: Acute Code(s): K56.609 - UNSP INTESTNL OBST, UNSP TO PARTIAL VERSUS COMPLETE OBST SNOMED Code(s): 905923905
--- NOTE | 2018-10-07 12:34 | P.PN ---
Subjective Progress Note Date: 10/07/18 This is an 87-year-old gentleman, the history was somewhat difficult to obtain from the patient, most of it was obtained from the medical record. Patient has had a prior stroke and has dysarthria from that. He does have history of asthma, he does take a beta cathy as well as Lanoxin at home, but he is unsure if he has any history of atrial fibrillation in the past, mild hypertension, nondiabetic, no high cholesterol. He presented to the hospital with symptoms of abdominal discomfort, not having had a bowel movement for the past 2-3 days prior to admission here, he was found to have a high-grade small bowel obstruction and was taken to the emergency room where he underwent surgery. Patient is noted to be in atrial tachycardia with occasional PVC , cardiology consultation has been requested for possible atrial fibrillation.. Blood pressure this morning 134/70 with a heart rate in the 1 teens, 96% on 2 L of oxygen. White blood cell count 7.1, hemoglobin 13.4, platelet count 167. Sodium 142, potassium 4.2, BUN 33 and creatinine 0.9. Magnesium is 1.8. Patient is sitting up in the chair at bedside at this morning, NG tube has been removed. 10/06/2018 Patient seen and examined this morning, sitting up in his chair at bedside. Blood pressure 134/90, heart rate 110, 96% on 2 L of oxygen. White blood cell count 7.3, hemoglobin 14, platelet count 193. Sodium 140, potassium 4.0, BUN 33 and creatinine 0.9. We will increase the dose of metoprolol 25 mg by mouth 3 times a day today. Continue the rest of the patient's medications. 10/07/2018 Patient was seen and examined this morning, blood pressure staying in the 90s, 94% 60 this morning with a heart rate in the 80s, 96% on room air. White blood cell count 8.5, hemoglobin 13.5, platelet count 137. Sodium 137, potassium 4.0, BUN 16 and creatinine 0.8. Objective - Vital Signs Vital signs: Vital Signs Temp 97.5 F L 10/07/18 08:00 Pulse 112 H 10/07/18 08:00 Resp 18 10/07/18 08:00 BP 129/80 10/07/18 08:00 Pulse Ox 97 10/07/18 08:00 Intake & Output 10/06/18 10/07/18 10/07/18 18:59 06:59 18:59 Intake Total 1160 Output Total 500 Balance 1160 -500 Weight 80.5 kg Intake: Intake, IV Titration 800 Amount Sodium Chloride 0.9% 1, 800 000 ml @ 75 mls/hr IV . [id number] [facility] Rx#:[id number] Oral 360 Output: Urine 500 Other: Voiding Method Indwelling Catheter Indwelling Catheter Indwelling Catheter - Exam PHYSICAL EXAMINATION: GENERAL: 87-year-old gentleman in no acute distress at the time of my examination HEENT: Head is atraumatic, normocephalic. Pupils equal, round. Sclera anicteric. Conjunctiva are clear. Mucous membranes of the mouth are moist. Neck is supple. There is no elevated jugular venous pressure. No carotid bruit is heard. HEART EXAMINATION: Heart S1 and S2 irregularly irregular a systolic murmur is heard CHEST EXAMINATION: Lungs reveal scattered coarse rhonchi that clear with cough. ABDOMEN: Soft, mild generalized tenderness, bowel sounds are sluggish, abd ominal binder is in place.. EXTREMITIES: 2+ peripheral pulses with no evidence of peripheral edema and no calf tenderness noted. Venodyne's in place. NEUROLOGIC patient is awake, alert and oriented 3, positive dysarthria secondary to CVA.. - Labs CBC & Chem 7: 10/07/18 05:37 10/07/18 05:37 Labs: Abnormal Lab Results - Last 24 Hours (Table) 10/07/18 10/07/18 Range/Units 05:37 05:37 RBC 3.71 L (4.30-5.90) m/uL Hgb 12.1 L (13.0-17.5) gm/dL Hct 38.2 L (39.0-53.0) % MCV 102.7 H (80.0-100.0) fL Carbon Dioxide 31 H (22-30) mmol/L BUN 27 H (9-20) mg/dL Calcium 8.0 L (8.4-10.2) mg/dL Microbiology - Last 24 Hours (Table) 10/04/18 13:49 Blood Culture - Preliminary Blood No Growth after 48 hours Assessment and Plan Plan: Assessment and plan #1 small bowel obstruction status post surgery #2 atrial tachycardia likely secondary to infection, lactic acid elevated on admission #3 hypertension #4 history of prior CVA with chronic dysarthria Plan Echocardiogram with Doppler study was performed which revealed an ejection fraction of 35-40% with evidence of anterior septal hypokinesia. We will continue current medications. Discharged once cleared by surgery and primary. DNP note has been reviewed, I agree with a documented findings and plan of care. Patient was seen and examined.
--- NOTE | 2018-10-07 14:15 | XR ---
EXAMINATION TYPE: XR abdomen 2V DATE OF EXAM: 10/07/2018 12:29 PM CLINICAL HISTORY: Abdominal surgery 2 days ago TECHNIQUE: Upright and supine abdominal radiographs were obtained. COMPARISON: None. FINDINGS: Midline surgical russ are seen. There is gaseous tension of multiple loops of large and small bowel. Large bowel measures up to 5.8 cm, upper limits of normal and small bowel measures up to 3.5 cm, mildly dilated. Lung bases are well aerated. Heart appears enlarged in its visualized portio n. Degenerative changes of the spine and femoral acetabular joints. Exam is limited for pneumoperiton eum although no gross evidence of pneumoperitoneum is seen on the upright view. IMPRESSION: Mildly dilated loops of small bowel likely represents postop ileus with gaseous distentio n of both large and small bowel loops.
--- NOTE | 2018-10-07 15:58 | P.PN ---
Progress Note - Text Progress Note Date: 10/07/18 Interval history: This is a 87-year-old patient who follows with Dr. Parada. Chronic stable med ical conditions include intermittent asthma, dysarthria from a prior stroke, BPH, possible atrial fibrillation. Patient had presented to the ER with 2 days of increasing pain in the right inguinal area. Pain was localized to the right groin. No fever no chills. Nausea vomiting. Had not had a bowel movement for 2 days. A computed tomography scan showed a high-grade small bowel obstruction with a transition point. Patient was taken to the OR. 4 cm of the jejunal was taken out. End to end anastomosis was done. NG tube was placed Today-sitting up in a chair. Shea catheter in place. .Hematuria is much improved patient remains on a clear liquid diet. Has positive flatus. No bowel movement. Has been out of chair. Review of systems: Was done for constitutional, cardiovascular, GI, pulmonary. relevant finding as above Active Medications Acetaminophen (Tylenol Tab) 650 mg PO Q6HR PRN PRN Reason: Mild Pain or Fever >= 100.5 Last Admin: 10/05/18 17:23 Dose: 650 mg Documented by: Hydrocodone Bitart/Acetaminophen (Pima 5-325) 1 each PO Q4HR PRN PRN Reason: Mild Pain Heparin Sodium (Porcine) (Heparin) 5,000 unit SQ Q8HR [facility] Hydromorphone HCl (Dilaudid) 0.5 mg IVP Q3HR PRN PRN Reason: Moderate to Severe Pain Piperacillin Sod/Tazobactam (Sod 3.375 gm/ Sodium Chloride) 100 mls @ 25 mls/hr IVPB Q8HR [facility] Last Admin: 10/07/18 09:06 Dose: 25 mls/hr Documented by: Sodium Chloride (Saline 0.9%) 1,000 mls @ 75 mls/hr IV .[id number] [facility] Last Admin: 10/07/18 09:07 Dose: 75 mls/hr Documented by: Lisinopril (Zestril) 10 mg PO DAILY [facility] Last Admin: 10/07/18 09:06 Dose: 10 mg Documented by: Metoprolol Tartrate (Lopressor) 25 mg PO TID [facility] Last Admin: 10/07/18 09:05 Dose: 25 mg Documented by: Morphine Sulfate (Morphine Sulfate (Inj)) 4 mg IV Q4HR PRN PRN Reason: Severe Pain Last Admin: 10/05/18 04:25 Dose: 4 mg Documented by: Naloxone HCl (Narcan) 0.2 mg IV Q2M PRN PRN Reason: Opioid Reversal Ondansetron HCl (Zofran) 4 mg IVP Q8HR PRN PRN Reason: Nausea And Vomiting Pantoprazole Sodium (Protonix) 40 mg IV DAILY [facility] Last Admin: 10/07/18 09:06 Dose: 40 mg Documented by: Tamsulosin HCl (Flomax) 0.4 mg PO DAILY [facility] Last Admin: 10/07/18 09:06 Dose: 0.4 mg Documented by: Physical examination: VITAL SIGNS: 97.8, 110, 17, 131/ 84, 94% on [address] Santiago 35/ GENERAL: Sitting up in a chair, comfortable. EYES: Pupils equal. Conjunctiva normal. HEENT: External appearance of nose and ears normal, oral cavity dry, NG tube in place. NECK: JVD not raised; masses not palpable. HEART: First and second heart sounds are normal; no edema. LUNGS: Respiratory rate normal; clear to auscultation. ABDOMEN: Soft, tender, bowel sounds are sluggish, binder in place. Unable to assess for liver and spleen.. Shea cath in place. Urine is significantly cleared up PSYCH: Awake answering questions. NEUROLOGICAL: Cranial nerves grossly intact; no facial asymmetry, power and sensation grossly intact. Patient has got dysarthria. INVESTIGATIONS, reviewed in the clinical context: White count 5.9 albumin 12.1 potassium 4.0 creatinine 0.82 Telemetry shows sinus tachycardia with some PVCs Previous tests: Computed tomography scan of the abdomen shows small bowel obstruction with air- fluid levels dilated White count 8.4 hemoglobin 16.3 potassium 4.5 creatinine 1.12 lactic acid 4 2-D echo shows EF of 35-40% Assessment: -Acute small bowel obstruction from incarcerated right inguinal hernia,Status post surgery with 4 cm of jejunum removed -Lactic acidosis type II from bowel ischemia -Intermittent asthma -Chronic dysarthria from prior stroke -BPH -Paroxysmal Atrial fibrillation, currently in sinus rhythm -Atrial tachycardia, per cardiology -Hematuria likely traumatic from Shea catheter, much improved -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 Slowly improving. Hematuria is gone much better. Encouraged to ambulate.
[2018-10-07] MEDS: HEPARIN SODIUM,PORCINE 5,000 UNIT/ML 1 ML VIAL SQ SCH (16:19)
[2018-10-08] MEDS: HEPARIN SODIUM,PORCINE 5,000 UNIT/ML 1 ML VIAL SQ SCH ×2 (00:01→08:45)
[2018-10-08] MEDS: PIPERACILLIN-TAZOBACTAM 3.375 GM in SODIUM CHLORIDE 0.9% 100 ML IVPB SCH ×2 (00:01→08:42)
[2018-10-08] MEDS ORDERED: BISACODYL 10 MG SUPP RECTAL ONE (07:00)
[2018-10-08] MEDS: TAMSULOSIN 0.4 MG CAP.ER.24H PO SCH (08:44)
[2018-10-08] MEDS: LISINOPRIL 10 MG TAB PO SCH (08:45)
[2018-10-08] MEDS: PANTOPRAZOLE 40 MG/10 ML VIAL IV SCH (08:45)
[2018-10-08] MEDS: METOPROLOL TARTRATE 25 MG TAB PO SCH (08:45)
[2018-10-08] MEDS: ALBUTEROL NEBULIZED 2.5 MG/3 ML INHALATION SCH ×2 (09:08→13:26)
[2018-10-08 10:21] VITALS: RESP 18
--- NOTE | 2018-10-08 11:16 | PN ---
PROGRESS NOTE Mr. Gaines is an 87-year-old gentleman who was admitted to hospital with small-bowel obstruction. He is feeling much better. Denies any symptoms. Remains in sinus rhythm with PACs and episodes of atrial tachycardia. The patient had an echocardiogram on this admission that revealed anteroseptal hypokinesis with an ejection fraction of 35% to 40%. PHYSICAL EXAMINATION: On exam, comfortable at rest. Heart rate is 106 beats per minute. Blood pressure is 120/72. Respiratory rate is 18. Chest exam reveals good air entry bilaterally. Heart exam reveals first and second heart sounds. No gallop. Examination of extremities did not reveal any edema. Peripheral pulses are felt. LABS: Labs show a hemoglobin of 12.1, potassium is 4, creatinine is 0.8. ASSESSMENT: 1. Atrial tachycardia. 2. Small bowel obstruction. 3. Cardiomyopathy. PLAN: Patient will continue current medications including the Lopressor. Patient needs Lopressor and Zestril. He needs follow-up evaluation in the outpatient setting for the cardiomyopathy that he has. MMODL / IJN: [id number] /
--- NOTE | 2018-10-08 13:08 | P.DS ---
Providers Date of admission: 10/04/18 13:13 Expected date of discharge: 10/08/18 Attending physician: Emily Ledesma Consults: 10/04/18 16:54 Consult Physician Routine Consulting Provider: Billy Franklin Consult Reason/Comments: Atrial fibrillation with RVR Do you want consulting provider notified?: Yes 10/04/18 16:55 Consult Physician Urgent Consulting Provider: Dashawn Avila Consult Reason/Comments: Medical management Do you want consulting provider notified?: Yes 10/06/18 13:15 Consult Physician Routine Consulting Provider: Gurpreet Rodney Consult Reason/Comments: hematuria Do you want consulting provider notified?: Yes Primary care physician: Jose Cunningham - Kirk Diagnosis(es) (1) Right inguinal hernia Current Visit: Yes Status: Acute (2) Small bowel obstruction Current Visit: Yes Status: Acute Hospital Course: 87-year-old male who is status post open exploratory laparotomy with lysis of adhesions, small bowel enterectomy with primary anastomosis, and open repair without mesh of recurrent right incarcerated inguinal hernia. Patient is doing well postoperatively without any complications. Cardiology has been following patient for tachycardia and adjusted his medications while in the hospital. He is tolerating diet. Pain controlled on oral medications. Vitals have been stable. He is stable for discharge home today. Please see EMR for further hospital course details. Discharge Diagnosis: 1. Acute strangulated right inguinal hernia with complete small bowel obstruction, status post open exploratory laparotomy with lysis of adhesions, small bowel enterectomy with primary anastomosis, and open repair without mesh of recurrent right incarcerated inguinal hernia 2. Lactic acidosis with tachycardia, meets sepsis criteria, POA, resolved 3. Atrial tachycardia, atrial fibrillation ruled out per cardiology 4. Hematuria, secondary to trauma from one catheter, resolved Nurse practitioner note has been reviewed by physician. Signing provider agrees with the documented findings, assessment, and plan of care. Patient Condition at Discharge: Stable Plan - Discharge Summary Discharge Rx Participant: Yes New Discharge Prescriptions: New Acetaminophen Tab [Tylenol Tab] 650 mg PO Q4H PRN #30 tablet PRN Reason: Pain Continue Levalbuterol Nebulized [Xopenex Nebulized] 1.25 mg INHALATION RT-TID PRN PRN Reason: Shortness Of Breath Tamsulosin HCl [Flomax] 0.4 mg PO DAILY Discontinued Metoprolol Tartrate [Lopressor] 12.5 mg PO DAILY Digoxin [Lanoxin] 125 mcg PO DAILY Discharge Medication List Levalbuterol Nebulized [Xopenex Nebulized] 1.25 mg INHALATION RT-TID PRN 10/04/18 [History] Tamsulosin HCl [Flomax] 0.4 mg PO DAILY 10/04/18 [History] Acetaminophen Tab [Tylenol Tab] 650 mg PO Q4H PRN #30 tablet 10/08/18 [Rx] Follow up Appointment(s)/Referral(s): [facility] [Provider Group] - 2 Weeks Emily Ledesma MD [STAFF PHYSICIAN] - 1 Week Jose Cunningham MD [Primary Care Provider] - 1-2 days Patient Instructions/Handouts: Exploratory Laparoscopy (DC), Lysis of Abdominal Adhesions (DC), Bowel Obstruction (DC) Activity/Diet/Wound Care/Special Instructions: PATIENT TAKING DIGOXIN PRIOR TO HOSPITALIZATION. HAS NOT BEEN RECEIVING WHILE HERE. CARDIOLOGY NOTE FROM TODAY STATES HE IS TO CONTINUE LOPRESSOR AND LISINOPRIL. CARDIOLOGY MUST CLARIFY WHAT THEY WANT DONE WITH DIGOXIN BEFORE PATIENT CAN BE DISCHARGED. ADDITIONALLY HE NEEDS A RX FOR LISINOPRIL IF CARDIOLOGY WANTS IT TO CONTINUE. HE ALSO NEEDS RX FOR INCREASED DOSE OF LOPRESSOR. PLEASE NOTE THIS CHANGES IN MED REC BEFORE PATIENT IS DISCHARGED Tylenol as needed for pain No lifting over 10 pounds You may shower. No soaking or tub baths Very light activity until you are reevaluated at your follow up appointment with your surgeon Discharge Disposition: HOME SELF-CARE
[2018-10-08 13:17] VITALS: BP 141/91; TEMP 98
[2018-10-08 13:29] VITALS: PULSE 108
[2018-10-08] MEDS: SODIUM CHLORIDE 0.9% 1,000 ML IV SCH (13:45)
[2018-10-08 14:38] VITALS: BMI 23.8
[2018-10-09] MEDS ORDERED: PANTOPRAZOLE SODIUM 40 MG GRANULE PKT PO SCH (07:30)
== END 2018-10-08 16:01 | disposition home or self-care (01) | DRG 329 ==
LOC: EC 09:05 → 3SCARD 13:13
PROVIDERS: ADMIT Surgery Plastic and Reconstructive Surgery; ATTEND Surgery Plastic and Reconstructive Surgery
PROC: 0DB80ZZ Excision of Small Intestine, Open Approach (ICD-10-PCS; principal; 2018-10-04 17:23)
PROC: 0YQ50ZZ Repair Right Inguinal Region, Open Approach (ICD-10-PCS; 2018-10-04 17:23)
DX: K40.31 Unilateral inguinal hernia, with obstruction, without gangrene, recurrent (principal); K55.021 Focal (segmental) acute infarction of small intestine; E87.2 Acidosis; I42.9 Cardiomyopathy, unspecified; I47.1 Supraventricular tachycardia; J44.9 Chronic obstructive pulmonary disease, unspecified; R31.0 Gross hematuria; I69.922 Dysarthria following unspecified cerebrovascular disease; I10 Essential (primary) hypertension; I49.3 Ventricular premature depolarization; J45.20 Mild intermittent asthma, uncomplicated; N40.0 Benign prostatic hyperplasia without lower urinary tract symptoms; Z79.899 Other long term (current) drug therapy; Z88.1 Allergy status to other antibiotic agents; Z90.49 Acquired absence of other specified parts of digestive tract; Z82.49 Family history of ischemic heart disease and other diseases of the circulatory system; Z80.1 Family history of malignant neoplasm of trachea, bronchus and lung; Z80.3 Family history of malignant neoplasm of breast
CPT/HCPCS: 36415; 74019; 74177; 80048; 80053; 81001; 82150; 83605; 83690; 83735; 84100; 84443; 85025; 85027; 85610; 85730; 87040; 88307; 93306; 94640; 96361; 96365; 96366; 96375; 99285

== ENCOUNTER 2019-02-17 08:50 | Observation (INO) | payer MEDICARE, BC ==
[2019-02-17] MEDS ORDERED: HYDROmorphone 0.5 MG/0.5 ML SYRINGE IVP PRN (10:32)
[2019-02-17] MEDS ORDERED: ONDANSETRON 4 MG/2 ML VIAL IVP PRN (10:32)
[2019-02-17] MEDS ORDERED: ACETAMINOPHEN IV (For NPO) 1,000 MG in EMPTY BAG 1 BAG IVPB PRN (10:33)
[2019-02-17] MEDS ORDERED: NALOXONE 0.4 MG/ML 1 ML VIAL IV PRN (10:40)
[2019-02-17] MEDS ORDERED: ACETAMINOPHEN TAB 325 MG TAB PO PRN (10:40)
[2019-02-17] MEDS: SODIUM CHLORIDE 0.9% 1,000 ML IV SCH (10:57)
[2019-02-17 12:38] LABS: Basophils % (A) 1 %; Eosinophils # (A) 0.4 k/uL (0-0.7); Eosinophils % (A) 9 %; Lymphocytes # (A) 0.9 k/uL (1.0-4.8); Lymphocytes % (A) 20 %; MCH 32.9 pg (25.0-35.0); MCHC 32.5 g/dL (31.0-37.0); MCV 101.3 fL (80.0-100.0); Macrocytosis Slight; Monocytes # (A) 0.4 k/uL (0-1.0); Monocytes % (A) 8 %; Neutrophils # (A) 2.8 k/uL (1.3-7.7); Neutrophils % (A) 59 %; Platelet Count 215 k/uL (150-450); RBC 3.95 m/uL (4.30-5.90); RDW 13.1 % (11.5-15.5); WBC 4.7 k/uL (3.8-10.6)
[2019-02-17 12:53] LABS: Albumin 3.8 g/dL (3.5-5.0); Calcium 9.5 mg/dL (8.4-10.2); Potassium 4.4 mmol/L (3.5-5.1); Total Bilirubin 0.8 mg/dL (0.2-1.3); Total Protein 6.6 g/dL (6.3-8.2)
--- NOTE | 2019-02-17 15:13 | P.GSHP ---
History of Present Illness H&P Date: 02/17/19 CHIEF COMPLAINT: Small bowel obstruction due to right inguinal hernia HISTORY OF PRESENT ILLNESS: The patient is a 88 year old male who had emergency surgery for obstruction due to right inguinal hernia over 4 months ago. At that time, small bowel resection was performed. He was seen in the office a few days ago complaining of recurrence along the right groin with findings of intermittent small bowel obstruction. This morning, patient and family confirms recurrent right inguinal hernia with incarceration and bowel obstruction hence his admission. He has nausea including vomiting. No recent bowel movements. PAST MEDICAL HISTORY: See list. PAST SURGICAL HISTORY: See list. MEDICATIONS: See list. ALLERGIES: See list. SOCIAL HISTORY: No illicit drug use FAMILY HISTORY: No reports of Crohn's disease or inflammatory bowel disease REVIEW OF ORGAN SYSTEMS: CONSTITUTIONAL: No fevers or chills. EYES: Denies any trouble with vision. No glasses. HEENT: No difficulties with hearing. No nosebleeds. No difficulty swallowing. Has dysarthria. RESPIRATORY: Denies pneumonia. Denies any troubles with breathing or dyspnea on exertion. Past COPD CARDIOVASCULAR: Has atrial fibrillation GASTROINTESTINAL: Denies fatty food intolerance. Has change in bowel habits and gas bloat. GENITOURINARY: Denies any blood in urine or increased urinary frequency. NEUROLOGICAL: Denies any numbness or tingling along the distal extremities. No seizure disorders or headaches. MUSCULOSKELETAL: Has any back pain, stiffness or joint arthritis. SKIN: No current skin cancer. No rash. PSYCHIATRIC: Denies current depression or suicidal thoughts. ENDOCRINE: Denies current thyroid disorders. Denies any blood sugar glucose intolerance. HEME/LYMPHATIC: Denies any lumps and bumps around the neck. No recent deep venous thrombosis. ALLERGY/IMMUNOLOGY: No immunoglobulin therapy. No immune deficiencies. BREAST: Denies current breast lumps, pain or nipple discharge. PHYSICAL EXAM: VITALS: Reviewed CONSTITUTIONAL: Well developed and in no acute distress. EYES: Conjuctivae without sclera icterus. Pupils are equally round and reactive to light. Extraocular movements grossly intact. HEAD, EARS, NOSE, THROAT: Moist buccal mucosa. Head is atraumatic, normocephalic. Hears conversational speech. No nasal drainage. RESPIRATORY: Non-labored respirations and equal bilateral excursions. No gross wheezes. CARDIOVASCULAR: Irregular rate and rhythm. Extremities without moderate edema. ABDOMEN: Palpable defect right groin with incarcerated right inguinal hernia. No skin changes noted. MUSCULOSKELETAL: Nail and fingers with good capillary refill. SKIN: Warm and well perfused with good skin turgor. NEUROLOGIC: Cranial nerves I through XII grossly intact. Sensation upper and ext remities intact. No focal or lateralizing signs. PSYCH: Appropriate affect. Alert and oriented to person, place and time. Displays appropriate insight. Has mild dysarthria RECORDS: previous old records reviewed ASSESSMENT: 1. Recurrent right inguinal hernia with small bowel obstruction PLAN: 1. Urgent surgical intervention with right inguinal hernia repair using robotic-assisted approach and mesh placement was described. 2. He has recent cardiac risk assessment 4 months ago at that time for emergency surgery. 3. DVT prophylaxis 4. Antibiotic prophylaxis 5. He is at increased risk for perioperative complications secondary to history of atrial fibrillation and COPD Past Medical History Past Medical History: Atrial Fibrillation, COPD, CVA/TIA, Memory Impairment, Osteoarthritis (OA) Additional Past Medical History / Comment(s): broncitis, emphysema History of Any Multi-Drug Resistant Organisms: None Reported Past Surgical History: Appendectomy, Hernia Repair, Orthopedic Surgery Additional Past Surgical History / Comment(s): Fractured right ankle and left arm Past Anesthesia/Blood Transfusion Reactions: No Reported Reaction Past Psychological History: No Psychological Hx Reported Smoking Status: Never smoker Past Alcohol Use History: Daily Past Drug Use History: None Reported - Past Family History Father Additional Family Medical History / Comment(s): Cancer Mother Additional Family Medical History / Comment(s): Breast CA Sister(s) Additional Family Medical History / Comment(s): 2 sisters with breast CA Brother(s) Family Medical History: Myocardial Infarction ([place]) Additional Family Medical History / Comment(s): Lung CA Medications and Allergies Home Medications Medication Instructions Recorded Confirmed Type RX: Levalbuterol Nebulized 1.25 mg INHALATION RT-TID PRN 10/04/18 02/17/19 History [Xopenex Nebulized] RX: Tamsulosin HCl [Flomax] 0.4 mg PO DAILY 10/04/18 02/17/19 History Aspirin EC [Ecotrin] 325 mg PO DAILY 02/17/19 02/17/19 History Budesonide [Pulmicort] 0.5 mg INHALATION RT-BID PRN 02/17/19 02/17/19 History Multivitamins, Thera [Multivitamin 1 tab PO DAILY 02/17/19 02/17/19 History (formulary)] Allergies Allergy/AdvReac Type Severity Reaction Status Date / Time cefuroxime [From Ceftin] Allergy Rash/Hives Verified 02/17/19 11:23 simvastatin AdvReac Severe Kidney Verified 02/17/19 11:23 Issues Surgical - Exam Vital Signs Temp Pulse Resp BP Pulse Ox 97.6 F 114 H 19 148/93 94 L 02/17/19 10:10 02/17/19 10:10 02/17/19 10:10 02/17/19 10:10 02/17/19 10:10 Results - Labs 02/17/19 12:10 02/17/19 12:10 Abnormal Lab Results - Last 24 Hours (Table) 02/17/19 02/17/19 Range/Units 12:10 12:10 RBC 3.95 L (4.30-5.90) m/uL MCV 101.3 H (80.0-100.0) fL Lymphocytes # 0.9 L (1.0-4.8) k/uL Carbon Dioxide 31 H (22-30) mmol/L BUN 23 H (9-20) mg/dL Diabetes panel 02/17/19 Range/Units 12:10 Sodium 139 (137-145) mmol/L Potassium 4.4 (3.5-5.1) mmol/L Chloride 104 (98-107) mmol/L Carbon Dioxide 31 H (22-30) mmol/L BUN 23 H (9-20) mg/dL Creatinine 0.92 (0.66-1.25) mg/dL Glucose 92 (74-99) mg/dL Calcium 9.5 (8.4-10.2) mg/dL AST 23 (17-59) U/L ALT 25 (21-72) U/L Alkaline Phosphatase 91 (38-126) U/L Total Protein 6.6 (6.3-8.2) g/dL Albumin 3.8 (3.5-5.0) g/dL Calcium panel 02/17/19 Range/Units 12:10 Calcium 9.5 (8.4-10.2) mg/dL Albumin 3.8 (3.5-5.0) g/dL Pituitary panel 02/17/19 Range/Units 12:10 Sodium 139 (137-145) mmol/L Potassium 4.4 (3.5-5.1) mmol/L Chloride 104 (98-107) mmol/L Carbon Dioxide 31 H (22-30) mmol/L BUN 23 H (9-20) mg/dL Creatinine 0.92 (0.66-1.25) mg/dL Glucose 92 (74-99) mg/dL Calcium 9.5 (8.4-10.2) mg/dL Adrenal panel 02/17/19 Range/Units 12:10 Sodium 139 (137-145) mmol/L Potassium 4.4 (3.5-5.1) mmol/L Chloride 104 (98-107) mmol/L Carbon Dioxide 31 H (22-30) mmol/L BUN 23 H (9-20) mg/dL Creatinine 0.92 (0.66-1.25) mg/dL Glucose 92 (74-99) mg/dL Calcium 9.5 (8.4-10.2) mg/dL Total Bilirubin 0.8 (0.2-1.3) mg/dL AST 23 (17-59) U/L ALT 25 (21-72) U/L Alkaline Phosphatase 91 (38-126) U/L Total Protein 6.6 (6.3-8.2) g/dL Albumin 3.8 (3.5-5.0) g/dL Assessment and Plan (1) Chronic atrial fibrillation Current Visit: Yes Status: Acute Code(s): I48.20 - CHRONIC ATRIAL FIBRILLATION, UNSPECIFIED SNOMED Code(s): 827922034 (2) COPD (chronic obstructive pulmonary disease) Current Visit: Yes Status: Acute Code(s): J44.9 - CHRONIC OBSTRUCTIVE PULMONARY DISEASE, UNSPECIFIED SNOMED Code(s): 87667434 (3) Right inguinal hernia Current Visit: No Status: Acute Code(s): K40.90 - UNIL INGUINAL HERNIA, W/O OBST OR GANGR, NOT SPCF RECUR SNOMED Code(s): 738823851 (4) Small bowel obstruction Current Visit: No Status: Acute Code(s): K56.609 - UNSP INTESTNL OBST, UNSP TO PARTIAL VERSUS COMPLETE OBST SNOMED Code(s): 418441621
[2019-02-17] MEDS ORDERED: IV FLUID CONTINUATION 1,000 ML IV ONE (15:27)
[2019-02-17] MEDS ORDERED: fentaNYL (PF) 50 MCG/ML 2 ML AMP IVP ONE (16:00)
[2019-02-17] MEDS ORDERED: HEPARIN SODIUM,PORCINE 5,000 UNIT/ML 1 ML VIAL SQ SCH (16:00)
[2019-02-17] MEDS ORDERED: MIDAZOLAM 2 MG/2 ML VIAL IVP ONE (16:02)
--- NOTE | 2019-02-17 16:26 | P.ANPRN ---
Procedure Note - Anesthesia - Nerve Block Performed Right Transversus Abdominis Single Time Out Performed: Yes Date of Procedure: 02/17/19 Procedure Start Time: 16:00 Location of Patient: PreOp Indication: Acute Post-Operative Pain, Requested by Surgeon Specifically requested for management of pain by DrGee: Emily Ledesma Sedation Type: Sedate with meaningful contact maintained Preparation: Sterile Prep Position: Supine Catheter: None Needle Types: Pajunk Needle Gauge: 20 Ultrasound used to visualize needle placement: Yes Ultrasound used to observe medication spread: Yes Injectate: Other (see comment) (0.25% Rop/0.5%lido 25cc) Adjunct: Epinephrine (see comment for dilution ratio) (1/200,000) Blood Aspirated: No Pain Paresthesia on Injection Noted: No Resistance on Injection: Normal Image Stored and Saved: Yes Events: Uneventful and Well Tolerated
[2019-02-17] MEDS ORDERED: ONDANSETRON 4 MG/2 ML VIAL IVP ONE (16:27)
[2019-02-17] MEDS ORDERED: ROPIVACAINE 5 MG/ML 30 ML VIAL ONE (18:08)
[2019-02-17] MEDS ORDERED: PROPOFOL 10 MG/ML 20 ML VIAL IV ONE (18:08)
[2019-02-17] MEDS ORDERED: ESMOLOL 100 MG/10 ML VIAL ONE (18:08)
[2019-02-17] MEDS ORDERED: METOPROLOL TARTRATE 5 MG/5 ML VIAL IVP ONE (18:08)
[2019-02-17] MEDS ORDERED: LIDOCAINE 1% INJ 10MG/ML (20 ML MDV) ONE (18:08)
[2019-02-17] MEDS ORDERED: NEOSTIGMINE 1 MG/ML 10 ML VIAL ONE (18:08)
[2019-02-17] MEDS ORDERED: GLYCOPYRROLATE 0.2 MG/ML 2 ML VIAL ONE (18:08)
[2019-02-17] MEDS ORDERED: ROCURONIUM BROMIDE 10 MG/ML 10 ML VIAL IV ONE (18:08)
[2019-02-17] MEDS ORDERED: SUCCINYLCHOLINE CHLORIDE 100 MG/5 ML SYR IV ONE (18:08)
[2019-02-17] MEDS ORDERED: PHENYLEPHRINE-0.9% NACL SYG 1 MG/10 ML SYRINGE ONE (18:08)
[2019-02-17] MEDS ORDERED: fentaNYL (PF) 50 MCG/ML 2 ML AMP ONE (18:08)
[2019-02-17] MEDS ORDERED: SODIUM CHLORIDE 0.9% 100 ML with ceFAZolin 2,000 MG IV ONE ×2 (18:38)
[2019-02-17] MEDS ORDERED: LACTATED RINGERS 1,000 ML IV ONE ×4 (18:45→20:45)
[2019-02-17] MEDS ORDERED: BUPIVACAIN-EPI 0.25%-1:200,000 30 ML VIAL SQ ONE (18:54)
[2019-02-17] MEDS ORDERED: LABETALOL SYRINGE 5 MG/ML IVP ONE (20:39)
[2019-02-17] MEDS ORDERED: HYDROcodone/APAP 5-325MG 1 EACH TAB PO PRN (20:42)
--- NOTE | 2019-02-17 20:53 | P.OP ---
Date of Procedure: 02/17/19 Description of Procedure: SURGEON: AMANDA MASON MD PREOPERATIVE DIAGNOSES: 1. Recurrent right inguinal hernia with incarceration and history of small bowel obstruction 2. Previous history of left inguinal hernia repair 3. Benign prostatic hypertrophy with lower urinary obstructive symptoms 4. Gastroesophageal reflux disease 5. Hypertensive heart disease. 6. Atrial fibrillation, paroxysmal 7. Previous history of cerebrovascular accident with sequelae 8. Previous history of recurrent bilateral inguinal hernia repairs 9. Previous history of multiple abdominal surgeries 10. Chronic obstructive pulmonary disease POSTOPERATIVE DIAGNOSES: 1. Recurrent right inguinal hernia with incarceration and history of small bowel obstruction 2. Previous history of left inguinal hernia repair 3. Benign prostatic hypertrophy with lower urinary obstructive symptoms 4. Gastroesophageal reflux disease 5. Hypertensive heart disease. 6. Atrial fibrillation, paroxysmal 7. Previous history of cerebrovascular accident with sequelae 8. Previous history of recurrent bilateral inguinal hernia repairs 9. Previous history of multiple abdominal surgeries 10. Chronic obstructive pulmonary disease 11. Bladder diverticulum, right 12. 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 Robotic-assisted da Denise Xi laparoscopic lysis of adhesions over 45 minutes 2. Robotic-assisted da Denise Xi laparoscopic right inguinal hernia repair with mesh, 11.[address] ANESTHESIA: General with local anesthetic ESTIMATED BLOOD LOSS: 5 mL. SPECIMENS REMOVED: None COMPLICATIONS: None. INDICATIONS: The patient is a 88-year-old gentleman who 4 months ago had jenna gency surgery for strangulated small intestine and right inguinal hernia repair. Mesh was not placed at that time given the urgency of his procedure. He now returns with recurrent right inguinal hernia with intermittent small bowel obstruction. Now presents for definitive surgical intervention. Laparoscopic versus open and robotic approaches were discussed. Benefits and risks including bleeding, infection, injury to the vas deferens as well as sterility and chronic groin pain were reviewed. Placement of mesh was also described. Informed consent was obtained. DESCRIPTION: In the preoperative area, the patient was marked with indelible marker along the inguinal hernia. The patient was brought to the operating room and initially laid in supine position. The abdomen had been prepped and draped in standard sterile fashion. Ioban draping was also placed. Prior to incision, a timeout protocol was confirmed with surgical team regarding patient's name including procedures to be performed and location along the right groin. Initial positioning for the robotic assisted ports were selected whereby 20 cm superior to the target anatomy, 0 degree 5 mm laparoscopic trocar entry was performed at the left upper quadrant. The abdomen was insufflated to 15 mmHg which he had tolerated well. Diagnostic laparoscopy no injury to bowel viscera or mesentery. Moderate peritoneal adhesions with small bowel adhesions to abdominal wall is identified. Next, along the epigastrium, 8 mm robot trocar was placed. An 8-mm robotic trocar was placed under direct visualization at the right upper quadrant. An 8 mm port was placed at the left upper quadrant. All trocars were positioned between 8 to 10-cm apart from each other. The [employer] XI robot was primed, draped, prepared for docking along the left side of the patient. I then went to the [facility] console. The lead recreation assistant was at bedside for exchange of the robot arms and equipment. Initial attention was brought to dense adhesions of the abdomen including small bowel adherent to the abdominal wall and greater omentum to the abdominal wall. Carefully adhesions were taken down using a combination of blunt and sharp dissection using scissors. Extensive lysis of adhesions over 45 minutes was performed. No recurrent hernia was identified along the left groin. At the right groin, a defect consistent with an direct hernia was identified. The hernia sac was evaginated. Upon careful exploration, questionable bladder diverticulum was found. The peritoneum was scored. The diverticulum was reduced. The peritoneal defect was oversewn using a pursestring suture using 2- 0 V-0 LOC. Next, moderate sized defect and weakness along the right inguinal floor was identified. As an onlay, an 11.[address] mesh by [employer] was initially cut in half and entered into the abdominal cavity via the 8 mm trocar. The mesh was tacked to the pelvis using permanent 2-0 VLOC 9-inch length sutures. The robot was undocked from the patient's bedside. I then rescrubbed into the case. Insufflation was released from the abdominal cavity and all instruments were removed from the abdominal cavity. The rest of incisions were reapproximated using 4-0 Monocryl in a running subcuticular fashion. Local anesthetic was placed along the incision including for a right groin block. Incisions were cleansed using dilute hydrogen peroxide. Liquid glue was applied to the skin. At the end of the procedure, the needle, sponge and instrument counts had been verified correct by the surgical garment assembly supervisor. The patient had tolerated the procedure well and was taken to the postanesthesia care unit in stable condition. Console time: 61 minutes
[2019-02-18] MEDS: SODIUM CHLORIDE 0.9% 1,000 ML IV SCH (00:03)
[2019-02-18 08:06] VITALS: BP 140/91; PULSE 106; RESP 18; TEMP 97.4
[2019-02-18] MEDS ORDERED: TAMSULOSIN 0.4 MG CAP.ER.24H PO SCH (08:30)
[2019-02-18] MEDS ORDERED: PANTOPRAZOLE 40 MG/10 ML VIAL IVP SCH (09:00)
[2019-02-18] MEDS ORDERED: ENOXAPARIN 30 MG/0.3 ML SYRINGE SQ SCH (09:00)
[2019-02-18] MEDS ORDERED: TAMSULOSIN 0.4 MG CAP.ER.24H PO STA (10:46)
[2019-02-18 11:51] VITALS: BMI 22.5
--- NOTE | 2019-02-18 12:31 | P.DS ---
<Jessica Farah - Last Filed: 02/18/19 12:29> Providers Expected date of discharge: 02/18/19 Hospital Course: 88-year-old male who underwent robotic-assisted laparoscopic lysis of adhesions and right inguinal hernia repair with mesh with Dr. Ledesma. Patient is doing well postoperatively without any immediate complications. His pain is controlled on oral medications. He is tolerating diet without nausea or vomiting. Vital signs are stable. He is stable for discharge home today. Please see EMR for further hospital course details. Discharge diagnosis 1. Recurrent right inguinal hernia with incarceration and history of small bowel obstruction 2. Previous history of left inguinal hernia repair 3. Benign prostatic hypertrophy with lower urinary obstructive symptoms 4. Gastroesophageal reflux disease 5. Hypertensive heart disease. 6. Atrial fibrillation, paroxysmal 7. Previous history of cerebrovascular accident with sequelae 8. Previous history of recurrent bilateral inguinal hernia repairs 9. Previous history of multiple abdominal surgeries 10. Chronic obstructive pulmonary disease 11. Bladder diverticulum, right 12. 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 Signing provider agrees with the documented findings, assessment, and plan of care. Patient Condition at Discharge: Stable Plan - Discharge Summary Discharge Rx Participant: Yes New Discharge Prescriptions: New Tamsulosin [Flomax] 0.4 mg PO DAILY #5 cap Acetaminophen Tab [Tylenol Tab] 650 mg PO Q4H PRN #30 tablet PRN Reason: Pain No Action Levalbuterol Nebulized [Xopenex Nebulized] 1.25 mg INHALATION RT-TID PRN PRN Reason: Shortness Of Breath Tamsulosin HCl [Flomax] 0.4 mg PO DAILY Budesonide [Pulmicort] 0.5 mg INHALATION RT-BID PRN PRN Reason: Shortness Of Breath Multivitamins, Thera [Multivitamin (formulary)] 1 tab PO DAILY Aspirin EC [Ecotrin] 325 mg PO DAILY Discharge Medication List Levalbuterol Nebulized [Xopenex Nebulized] 1.25 mg INHALATION RT-TID PRN 10/04/18 [History] Tamsulosin HCl [Flomax] 0.4 mg PO DAILY 10/04/18 [History] Aspirin EC [Ecotrin] 325 mg PO DAILY 02/17/19 [History] Budesonide [Pulmicort] 0.5 mg INHALATION RT-BID PRN 02/17/19 [History] Multivitamins, Thera [Multivitamin (formulary)] 1 tab PO DAILY 02/17/19 [History] Acetaminophen Tab [Tylenol Tab] 650 mg PO Q4H PRN #30 tablet 02/18/19 [Rx] Tamsulosin [Flomax] 0.4 mg PO DAILY #5 cap 02/18/19 [Rx] Follow up Appointment(s)/Referral(s): Emily Ledesma MD [STAFF PHYSICIAN] - 02/22/19 3:20 pm Patient Instructions/Handouts: Inguinal Hernia (DC) Activity/Diet/Wound Care/Special Instructions: Tylenol as needed for pain No lifting over 10 pounds You may shower. No soaking or tub baths Very light activity until you are reevaluated at your follow up appointment with your surgeon <Emily Ledesma - Last Filed: 02/22/19 16:11> Providers Date of admission: 02/17/19 09:46 Attending physician: Emily Ledesma Primary care physician: Jose Cunningham - Kirk Diagnosis(es) (1) Chronic atrial fibrillation Status: Acute (2) COPD (chronic obstructive pulmonary disease) Status: Acute (3) Right inguinal hernia Status: Acute (4) Small bowel obstruction Status: Acute
[2019-02-19] MEDS ORDERED: ENOXAPARIN 40 MG/0.4 ML SYRINGE SQ SCH (09:00)
== END 2019-02-18 15:00 | disposition home or self-care (01) ==
LOC: 1SOBS 09:46 → 4SSUR 19:33
PROVIDERS: ADMIT Surgery Plastic and Reconstructive Surgery; ATTEND Surgery Plastic and Reconstructive Surgery
DX: K40.31 Unilateral inguinal hernia, with obstruction, without gangrene, recurrent (principal); K66.0 Peritoneal adhesions (postprocedural) (postinfection); I48.20 Chronic atrial fibrillation, unspecified; J43.9 Emphysema, unspecified; M19.90 Unspecified osteoarthritis, unspecified site; R41.3 Other amnesia; I69.320 Aphasia following cerebral infarction; N40.0 Benign prostatic hyperplasia without lower urinary tract symptoms; K21.9 Gastro-esophageal reflux disease without esophagitis; N32.3 Diverticulum of bladder; I11.0 Hypertensive heart disease with heart failure; I50.9 Heart failure, unspecified; Z79.899 Other long term (current) drug therapy; Z79.82 Long term (current) use of aspirin; Z80.3 Family history of malignant neoplasm of breast; Z82.49 Family history of ischemic heart disease and other diseases of the circulatory system; Z80.1 Family history of malignant neoplasm of trachea, bronchus and lung; Z88.1 Allergy status to other antibiotic agents; Z88.8 Allergy status to other drugs, medicaments and biological substances
CPT/HCPCS: 49329; 49651; S2900; 64486; 80053; 85025

== ENCOUNTER → 2020-11-06 | Outpatient (CLI) | payer MEDICARE, BC ==
--- NOTE | 2020-11-06 16:30 | XR ---
EXAMINATION TYPE: XR bone length study DATE OF EXAM: 11/06/2020 COMPARISON: None HISTORY: Leg length discrepancy TECHNIQUE: Imaging was performed through the lower extremities. Markers present during the exam. FINDINGS: Right tibia: 35.4 cm Left Tibia: 35.8 cm measured lateral tibial plateau to talotibial surfa ce of tibia. Right femur: 47.9 cm Left femur: 48.8 cm measured from superior femoral head to lateral femoral condyle IMPRESSION: 1. Left femur is 0.9 cm shorter than the right femur. 2. Left tibia is 0.4 centimeters longer than the right tibia. 3. Leg length discrepancy is left leg is 0.5 cm shorter than the right.
== END | disposition home or self-care (01) ==
LOC: RADXRMAIN 13:09
PROVIDERS: ATTEND Orthopaedic Surgery
DX: M21.752 Unequal limb length (acquired), left femur (principal); M21.762 Unequal limb length (acquired), left tibia
CPT/HCPCS: 77073

== ENCOUNTER → 2020-12-03 | Outpatient (CLI) | payer MEDICARE ==
[2020-12-03 14:11] LABS: HCT 39.2 % (39.0-53.0); HGB 12.6 gm/dL (13.0-17.5); MCH 34.5 pg (25.0-35.0); MCHC 32.2 g/dL (31.0-37.0); MCV 107.1 fL (80.0-100.0); Macrocytosis Moderate; Mean Platelet Volume 7.4; Platelet Count 174 k/uL (150-450); RBC 3.66 m/uL (4.30-5.90); RDW 13.4 % (11.5-15.5); WBC 4.5 k/uL (3.8-10.6)
[2020-12-03 14:23] LABS: INR 1.1 (<1.2); Partial Thromboplastin Time 23.6 sec (22.0-30.0); Prothrombin Time 11.5 sec (9.0-12.0)
[2020-12-03 14:28] LABS: Appearance,Urine Clear (Clear); Bilirubin,Urine Negative (Negative); Blood,Urine Negative (Negative); Color,Urine Yellow; Glucose,Urine (UA) Negative (Negative); Ketones,Urine Negative (Negative); Leukocyte Esterase,Urine Negative (Negative); Nitrite,Urine Negative (Negative); PH, Urine 5.5 (5.0-8.0); Protein,Urine Negative (Negative); Specific Gravity,Urine 1.022 (1.001-1.035); Urobilinogen,Urine <2.0 mg/dL (<2.0)
[2020-12-03 14:43] LABS: Albumin 3.6 g/dL (3.5-5.0); Calcium 9.1 mg/dL (8.4-10.2); Total Protein 6.6 g/dL (6.3-8.2)
== END | disposition home or self-care (01) ==
LOC: LABPAT 13:26
PROVIDERS: ATTEND Orthopaedic Surgery
DX: Z01.818 Encounter for other preprocedural examination (principal); I45.10 Unspecified right bundle-branch block; I44.0 Atrioventricular block, first degree; M17.11 Unilateral primary osteoarthritis, right knee; R00.0 Tachycardia, unspecified; R94.31 Abnormal electrocardiogram [ECG] [EKG]
CPT/HCPCS: 80053; 81003; 85027; 85610; 85730; 87070; 93005

== ENCOUNTER 2020-12-12 10:34 | Inpatient (IN) | payer BC, MEDICARE ==
[2020-12-05 13:34] VITALS: BMI 22.8
[~2020-12-12 10:34] MED LIST: ACETAMINOPHEN TAB 500 MG TAB PO PRN; DEXAMETHASONE SOD PHOSPHATE 10 MG/ML 1 ML VIAL IV PRN; DOCUSATE 100 MG CAP PO PRN; FAMOTIDINE 20 MG/2 ML VIAL IVP PRN; HYDROmorphone 0.5 MG/0.5 ML SYRINGE IVP PRN; KETOROLAC 15 MG/ML 1 ML VIAL IVP PRN; LIDOCAINE 1% (10MG/ML) FOR IV START INTRADERMA PRN; ONDANSETRON 4 MG/2 ML VIAL IVP PRN; ROPIVACAINE/EPI/CLONIDINE/KET 50 ML SYRINGE MISCELLANE PRN; TRANEXAMIC ACID 1,000 MG in SODIUM CHLORIDE 0.9% 100 ML IVPB PRN; VANCOMYCIN 1,000 MG in SODIUM CHLORIDE 0.9% 250 ML IVPB PRN; oxyCODONE ER 10 MG TAB.ER.12H PO PRN
[2020-12-12] MEDS: LACTATED RINGERS 1,000 ML IV SCH ×2 (12:29→22:23)
[2020-12-12] MEDS ORDERED: TRANEXAMIC ACID 1,000 MG/10 ML VIAL ONE (12:55)
[2020-12-12] MEDS ORDERED: MIDAZOLAM 2 MG/2 ML VIAL ONE (12:55)
[2020-12-12] MEDS ORDERED: PROPOFOL 10 MG/ML 20 ML VIAL IV ONE (12:55)
[2020-12-12] MEDS ORDERED: fentaNYL (PF) 50 MCG/ML 2 ML AMP ONE (12:55)
[2020-12-12] MEDS ORDERED: SODIUM CHLORIDE 0.9% 100 ML BAG ONE (12:55)
[2020-12-12] MEDS ORDERED: PHENYLEPHRINE-0.9% NACL SYG 1,000 MCG/10 ML SYRINGE ONE (12:55)
[2020-12-12] MEDS ORDERED: TRANEXAMIC ACID 1,000 MG in SODIUM CHLORIDE 0.9% 100 ML IVPB PRN (14:00)
[2020-12-12] MEDS ORDERED: VANCOMYCIN 1,000 MG VIAL MISCELLANE ONE (16:14)
[2020-12-12] MEDS ORDERED: LACTATED RINGERS 1,000 ML IV ONE (16:26)
[2020-12-12] MEDS ORDERED: NALOXONE 0.4 MG/ML 1 ML VIAL IV PRN (17:14)
[2020-12-12] MEDS ORDERED: ONDANSETRON 4 MG/2 ML VIAL IVP PRN (17:16)
[2020-12-12] MEDS ORDERED: HYDROmorphone 0.2 MG/1 ML SYRINGE IVP PRN (17:16)
[2020-12-12] MEDS ORDERED: hydrOXYzine pamoate 25 MG CAP PO PRN (17:16)
[2020-12-12] MEDS ORDERED: HYDROmorphone 0.5 MG/0.5 ML SYRINGE IVP PRN ×2 (17:16)
[2020-12-12] MEDS ORDERED: HYDROcodone/APAP 5-325MG 1 EACH TAB PO PRN ×2 (17:16)
--- NOTE | 2020-12-12 17:19 | P.OP ---
Date of Procedure: 12/12/20 Preoperative Diagnosis: 1. Right valgus knee arthritis 2. History of right distal femur fracture with valgus and flexion deformity Postoperative Diagnosis: Same Procedure(s) Performed: 1. Right complex total knee arthroplasty (distal femoral replacing hinge due to deformity) 2. Application of negative pressure dressing less than 50 cm, right knee Implants: 1. Mathew GRMS distal femur STD 65-mm 2. Mathew GRMS [id number] stem, femur 3. [place]w GRMS 30-mm femoral extension 4. [place] GRMS Tibial baseplate LGE-2 5. [place] GRMS [id number] stem, tibia 6. Mathew GRMS 10-mm tibial insert 7. Mathew 3-degree bumper Anesthesia: spinal Surgeon: Mio Cole Improvement Nurse #1: Leonie Bermudez Estimated Blood Loss (ml): 200 IV fluids (ml): 1,000 Pathology: none sent Condition: stable Disposition: PACU Indications for Procedure: The patient is a very pleasant relatively healthy 89-year-old male that has had a long-standing history of problems with his right knee. The patient sustained a right distal femur fracture remotely that resulted in a valgus and flexion malunion. He went on to develop severe and incapacitating valgus knee arthritis. He been managed by my partner Dr. Morrow for several years with nonoperative treatment including activity modification and occasional corticosteroid injections. He got to the point that his pain was not relieved by corticosteroid injections and was referred to me by Dr. Morrow for discussion of the complex total knee replacement having failed over 2 years of nonsurgical treatment. I met with the patient and his several times preoperatively to discuss different options. We discussed continued nonoperative treatment versus surgery. I do lengthy discussion about his deformity both clinically and radiographically. One of the patient's major complaints was the deformity in his knee. He had rigid valgus deformity which was not correctable. I do lengthy discussion on performing a total knee replacement after the patient's family requested this. We discussed several different options including primary minimally constrained implants, varus valgus constrained implants with stems, and a hinge. Due to the degree of deformity and the patient's distal femur, the severity of his arthritis, his poor bone quality, and his age and activity level my recommendation was to perform a distal femoral replacing hinge. We discussed that this would reliably correct his deformity and improve his function. The patient and his family all agreed with this and understand my rationale. We discussed the potential risks and complications of surgery including but certainly not limited to risks from anesthesia, superficial infection, periprosthetic joint infection, intraoperative fracture, postoperative fracture, delayed wound healing, wound necrosis, stiffness, instability, dislocation of the hinge, leg length discrepancy, neurovascular complications, DVT, PE, other medical complications, and inability to regain preinjury level of function, and possibly . The patient and his understand that he is at an increased risk of complication due to his age. They also understand that other less common complications are possible. They provided both her verbal and written consent to go forward with surgery. Description of Procedure: The patient was identified in preoperative holding and the correct right leg was marked with my initials. I reviewed the consent form with the patient and his . All of their questions were answered. The patient was then brought back to the operating room by anesthesia. He was given preoperative antibiotics and tranexamic acid. A spinal anesthetic was given. The patient was then carefully transferred onto the OR table. A tourniquet was applied to the proximal aspect of the right leg. While under anesthesia I performed a careful exam of the leg. He had rigid uncorrectable valgus in his right knee. He had full extension and flexion of the knee. Distally he had a palpable pulse. I also assessed leg lengths. The right leg was then prepped and draped in the standard sterile fashion. Prior to starting surgery timeout was performed identifying the cor rect patient, operative extremity, and procedure. The patient's leg was then elevated, exsanguinated with an Esmarch bandage, and the tourniquet was inflated to 275 mmHg. I began by performing a straight longitudinal anterior approach to the knee. Skin incision was made with a scalpel dissection was carried down carefully through subcutaneous tissue. The first fascial layer was identified and incised longitudinally in line with the skin incision. I developed medial and lateral subfascial flaps. A medial parapatellar arthrotomy was then performed area and there was a large amount of clear yellow synovial fluid. There was no sign of infection. The medial sleeve was raised. The fat pad behind the patellar tendon was removed. The knee was found to be severely arthritic. The ACL and PCL were then removed from the notch. The collateral ligaments were released medially and laterally. A bone hook was placed in the notch and taking care to stay directly on bone soft tissue was removed over the posterior femur. The malunion site was identified proximally. A trial distal femoral implant including both the femur and tibia were handed to me and held over the patient's knee. The osteotomy site of the femur was marked just proximal to the deformity. A 2 cm ribbon retractor was placed and the osteotomy and the femur was made with a sagittal saw. The femur was handed off to the back table. I then reamed until I had chatter. Attention was then turned to the femur. The proximal femur was carefully exposed taking care to protect the extensor mechanism. Entrance to the intramedullary canal was gained just proximal to the ACL insertion on the tibia. I then sequentially reamed until chatter was reached. An intramedullary cutting guide was placed and pinned into position. I elected to take a 12mm cut of tibia at neutral in both varus valgus and slope. The keel was punched taking care to match rotation with the tubercle. I then trialed implants listed above which felt stable. The wound was thoroughly irrigated with pulsatile lavage. Remnants of the menisci were sharply removed. On inspection of the patella he had some cartilage so decision was made to leave the patella undersurface due to the patient's poor bone quality. A Nestor was used to contour peripheral osteophytes on the patella. Both the tibial and femoral canal were prepared for cementing with pulsatile lavage and cement restrictors. I then cemented both the tibial and femoral components in a staged fashion starting with the tibial component. Rotation was matched and the tibial component was cemented and held until the cement was hard. The femoral component was then cemented taking care to match our templated rotation. Once the cement the femur had set a trial reduction was performed and the knee again felt stable with both full extension and flexion. The final components of the hinge were placed including a 3 bumper. The knee had full extension and flexion. Clinically the knee appeared straight. The tourniquet was let down. All bleeders were controlled with aqua mantis. There did not appear to be any significant bleeding posteriorly in the knee. With the tourniquet down the patella tracked midline. The wound was thoroughly irrigated to with 3 L of sterile saline using pulsatile lavage and resect. A deep drain was placed. 2 g of vancomycin powder was placed. The wound was then closed in layers with interrupted Vicryl and a running double armed Ayla stitch for the capsule, monofilament Quill stitches for the deep subcu and superficial subcu and 3-0 Monocryl for the skin. Due to the extensive nature of the procedure and the patient's age and since the procedure was more in line with a revision that a primary knee and incisional wound VAC was placed over the incision. An sponge was placed. The drapes were then taken down. Leg lengths appeared symmetric. The patient had a palpable pulse in his foot was well perfused. Clinically his right leg appeared significantly more straight and preoperatively. A web roll and Basim wrap was applied followed by a knee immobilizer. The patient was awoken from his anesthetic and brought to recovery having tolerated the procedure well. Leonie Bermudez PA-C was required as a skilled facilities maintenance assistant due to the complexity of the case for draping, exposure, retraction, placement of implant, closure of wound, and application of dressing. Plan: The patient is going to be admitted as an inpatient due to his age and the complexity of the surgery. He can weight-bear as tolerated on his right leg. I would like to keep him in a knee immobilizer for 48 hours for wound healing. He tolerated Ancef preoperatively and will receive an additional 2 doses of Ancef. Once he completes his second dose I would like to treat him with 100 mg of doxycycline twice a day 14 days due to him being high-risk primary total knee. We will leave his Provine a wound VAC in place for 7 days. DVT prophylaxis with aspirin 81 milligrams twice a day. Internal medicine for perioperative medical management.
[2020-12-12] MEDS: SENNOSIDES-DOCUSATE SODIUM 1 EACH TAB PO SCH (21:35)
[2020-12-12] MEDS: ASPIRIN 81 MG PO SCH (21:35)
--- NOTE | 2020-12-12 22:42 | XR ---
EXAMINATION TYPE: XR femur RT DATE OF EXAM: 12/12/2020 COMPARISON: NONE HISTORY: Postop TECHNIQUE: 5 views FINDINGS: There is right knee prosthesis. Proximal right femur is intact. There is some osteopenia. T here is hip joint space narrowing. There is acetabular spurring. IMPRESSION: Prosthesis appears in good position. No complicating process seen.
--- NOTE | 2020-12-12 22:44 | XR ---
EXAMINATION TYPE: XR knee limited RT DATE OF EXAM: 12/12/2020 COMPARISON: NONE HISTORY: Postop knee surgery TECHNIQUE: 2 view FINDINGS: There is a right knee prosthesis. Components appear in anatomic position. IMPRESSION: No complicating process seen.
--- NOTE | 2020-12-12 22:45 | XR ---
EXAMINATION TYPE: XR tibia fibula RT DATE OF EXAM: 12/12/2020 COMPARISON: NONE HISTORY: Surgery. Postop. TECHNIQUE: 4 views FINDINGS: There is a right knee prosthesis. Components are in anatomic position. Fibula appears intac t. Ankle mortise is anatomic. There is some osteopenia. IMPRESSION: No complicating process seen.
--- NOTE | 2020-12-12 22:55 | P.CONS ---
History of Present Illness - Reason for Consult Consult date: 12/12/20 - History of Present Illness Patient is an 89-year-old male with a PMH of mild dementia, history of CVA with residual expressive aphasia, BPH, and COPD who was admitted for elective right knee replacement. The patient underwent the procedure earlier today without any immediate postoperative palpitations. He was seen in the surgical unit and reported excellent control of his pain, currently rated as 0 out of 10. She r eports that he has not been out of bed as of yet and has not had a bowel movement or passed urine. He denied any additional complaints. He denied chest discomfort, shortness of breath, fever, chills, cough, nausea, vomiting, abdominal pain, diarrhea. He reports compliance with his medications at home. Review of systems: Pertinent positives and negatives as discussed in HPI, a complete review of systems was performed and all other systems are negative. Physical examination: General: non toxic, no distress, appears at stated age, normal weight Derm: no unusual rashes/lesions no unusual ecchymoses, warm, dry Head: atraumatic, normocephalic, symmetric Eyes: EOMI, no lid lag, anicteric sclera, pupils equal round reactive to light ENT: Nose and ears atraumatic, no thrush, no pharyngeal erythema Neck: No thyromegaly, no cervical lymphadenopathy, trachea midline, supple Mouth: no lip lesion, mucus membranes moist Cardiovascular: S1S2 reg, no murmur, positive posterior tibial pulse bilateral, no edema, capillary refill less than 2 seconds Lungs: CTA bilateral, no rhonchi, no rales , no accessory muscle use Abdominal: soft, nontender to palpation, no guarding, no appreciable organomeg merced, normal bowel sounds Ext: no gross muscle atrophy, muscle strength 5 out of 5 in all 4 extremities grossly except right lower extremity postsurgical, no contractures, right knee with a brace in place Neuro: CN II-XI grossly intact, light touch intact all 4 extremities, finger to nose within normal limits, Psych: Alert, oriented to person and place, not oriented to time Assessment/plan Chronic conditions: History of CVA, BPH, COPD, dementia -Continue with home meds Status post right total knee replacement -Defer management including pain control to the surgery service We appreciate this opportunity to be involved in this patient's care. We will follow the patient with you. For any further questions, please not hesitate to contact the [facility] [place] inpatient team. Past Medical History Past Medical History: Atrial Fibrillation, COPD, CVA/TIA, Memory Impairment, Osteoarthritis (OA) Additional Past Medical History / Comment(s): hx bronchitis, emphysema. speech impairment (progressive dysphasia), and comprehending issue with memory impairment History of Any Multi-Drug Resistant Organisms: None Reported Past Surgical History: Appendectomy, Bowel Resection, Hernia Repair, Orthopedic Surgery Additional Past Surgical History / Comment(s): Fractured right ankle and left arm. hernia repair with mesh. Cateract surgery 10/2020 Past Anesthesia/Blood Transfusion Reactions: No Reported Reaction Past Psychological History: No Psychological Hx Reported Smoking Status: Former smoker Past Alcohol Use History: Daily Past Drug Use History: None Reported - Past Family History Father Family Medical History: AFIB, Cancer Additional Family Medical History / Comment(s): Cancer Mother Family Medical History: AFIB, Cancer Additional Family Medical History / Comment(s): Breast CA Sister(s) Family Medical History: AFIB Additional Family Medical History / Comment(s): 2 sisters with breast CA Brother(s) Family Medical History: AFIB, Cancer, Myocardial Infarction ([place]) Additional Family Medical History / Comment(s): Lung CA Medications and Allergies Home Medications Medication Instructions Recorded Confirmed Type Levalbuterol Nebulized [Xopenex 1.25 mg INHALATION RT-TID PRN 10/04/18 12/12/20 History Nebulized] Aspirin EC [Ecotrin] 325 mg PO DAILY 02/17/19 12/05/20 History Budesonide [Pulmicort] 0.5 mg INHALATION RT-BID PRN 02/17/19 12/12/20 History Acetaminophen Tab [Tylenol Tab] 650 mg PO Q4H PRN #30 tablet 02/18/19 12/12/20 Rx Tamsulosin [Flomax] 0.4 mg PO DAILY #5 cap 02/18/19 12/12/20 Rx Metoprolol Succinate (ER) [Toprol 25 mg PO DAILY 12/05/20 12/12/20 History Xl] Allergies Allergy/AdvReac Type Severity Reaction Status Date / Time cefuroxime [From Ceftin] Allergy Rash/Hives Verified 12/12/20 12:02 simvastatin AdvReac Severe Kidney Verified 12/12/20 12:02 Issues Physical Exam Vitals: Vital Signs Temp Pulse Resp BP Pulse Ox 12/12/20 20:41 107 H 135/87 96 12/12/20 20:24 106 H 131/84 97 12/12/20 19:38 109 H 136/88 98 12/12/20 19:23 108 H 119/76 90 L 12/12/20 19:08 108 H 123/81 96 12/12/20 18:54 107 H 116/80 12/12/20 18:39 108 H 128/83 12/12/20 18:10 97.7 F 108 H 17 122/86 94 L 12/12/20 17:45 106 H 16 117/63 97 12/12/20 17:30 107 H 16 118/77 97 12/12/20 17:15 108 H 16 115/79 98 12/12/20 17:00 109 H 16 112/81 98 12/12/20 16:40 97 F L 109 H 16 123/78 98 12/12/20 12:34 117 H 18 145/99 98 12/12/20 12:08 97. F L 115 H 16 167/114 92 L Intake and Output 12/12/20 12/12/20 12/12/20 06:59 14:59 22:59 Intake Total 1400 350 Output Total 200 80 Balance 1200 270 Intake: IV 1400 350 Output: Drainage 80 Right Knee 80 Estimated Blood Loss 200 Other: Weight 71.3 kg 71.3 kg
[2020-12-13] MEDS ORDERED: BUDESONIDE 0.5 MG/2 ML NEBU INHALATION PRN (01:22)
[2020-12-13] MEDS: LACTATED RINGERS 1,000 ML IV SCH ×3 (07:29→08:05)
[2020-12-13] MEDS: ASPIRIN 81 MG PO SCH ×2 (07:40→21:41)
[2020-12-13] MEDS: TAMSULOSIN 0.4 MG CAP.ER.24H PO SCH (07:41)
[2020-12-13] MEDS: METOPROLOL SUCCINATE (ER) 25 MG TAB.ER.24H PO SCH (07:41)
[2020-12-13 09:56] LABS: HCT 33.5 % (39.6-50.0); HGB 10.5 g/dL (13.0-17.0); MCH 33.8 pg (27.0-32.0); MCHC 31.3 g/dL (32.0-37.0); MCV 107.7 fL (80.0-97.0); Mean Platelet Volume 9.4 fL (9.5-12.2); Platelet Count 145 X 10*3/uL (140-440); RBC 3.11 X 10*6/uL (4.40-5.60); RDW 13.7 % (11.5-14.5); WBC 9.36 X 10*3/uL (4.50-10.00)
[2020-12-13 10:53] LABS: Basophils # (A) 0.01 X 10*3/uL (0.00-0.10); Basophils % (A) 0.1 %; Eosinophils # (A) 0 X 10*3/uL (0.04-0.35); Eosinophils % (A) 0 %; Lymphocytes # (A) 0.52 X 10*3/uL (0.90-5.00); Lymphocytes % (A) 5.6 %; Macrocytosis (M) 2+; Monocytes # (A) 0.54 X 10*3/uL (0.20-1.00); Monocytes % (A) 5.8 %; Neutrophils # (A) 8.26 X 10*3/uL (1.80-7.70); Neutrophils % (A) 88.2 %
--- NOTE | 2020-12-13 13:19 | P.PN ---
Subjective Progress Note Date: 12/13/20 This patient is an 89- year old male who is status-post right complex total knee arthroplasty on 12/12/[address] Cole. Today is post-operative day #1. Patient is seen and examined bedside. He states he is currently experiencing no pain in the right knee. He has not been up with physical therapy yet this morning. He is tolerating his diet well. He states he otherwise feels well. He denies chest pain, shortness of breath, nausea, vomiting, fevers, chills. Vital signs stable. Objective - Vital Signs Vital signs: Vital Signs Temp 97.9 F 12/13/20 08:00 Pulse 111 H 12/13/20 08:01 Resp 16 12/13/20 08:05 BP 108/72 12/13/20 08:00 Pulse Ox 95 12/13/20 08:06 Intake & Output 12/12/20 12/13/20 12/13/20 18:59 06:59 18:59 Intake Total 1750 Output Total 280 850 Balance 1470 -850 Weight 71.3 kg Intake: IV 1750 Output: Drainage 80 200 Right Knee 80 200 Urine 650 Estimated Blood Loss 200 Other: Voiding Method Urinal Urinal # Voids 3 - Exam On examination, the patient is sitting up in bed in no apparent distress. He is alert and noted 3. On inspection of his right knee, there is a knee immobilizer in place. Hemovac drain and incisional VAC also in place. The right foot is warm and well-perfused, dorsalis pedis pulse palpable. Patient has good strength and rrjmy-de-[id number] of the right ankle. Motor and sensory function intact. Calf is soft and non-tender. - Labs CBC & Chem 7: 12/13/20 05:22 Labs: Abnormal Lab Results - Last 24 Hours (Table) 12/13/20 Range/Units 05:22 RBC 3.11 L (4.40-5.60) X 10*6/uL Hgb 10.5 L (13.0-17.0) g/dL Hct 33.5 L (39.6-50.0) % MCV 107.7 H (80.0-97.0) fL MCH 33.8 H (27.0-32.0) pg MCHC 31.3 L (32.0-37.0) g/dL MPV 9.4 L (9.5-12.2) fL Neutrophils # 8.26 H (1.80-7.70) X 10*3/uL Lymphocytes # 0.52 L (0.90-5.00) X 10*3/uL Eosinophils # 0 L (0.04-0.35) X 10*3/uL Assessment and Plan Assessment: Status-post right complex total knee arthroplasty on 12/12/[address] Cole. Post-operative day #1. Plan: - Patient may weight bear as tolerated on right knee with a walker. Up with assistance. - Keep knee immobilizer in place for 48 hours. - Keep hemovac drain and incisional wound vac in place. - Physical therapy for gait and balance training. - Post-operative antibiotics complete. - Aspirin 81mg BID for DVT prophylaxis. - Internal medicine for elba-operative medical management. - Anticipate discharge home with home health care with next 1-2 days, pending medical clearance.
--- NOTE | 2020-12-13 16:20 | P.PN ---
Subjective Patient is doing well today. No acute events overnight. Objective - Vital Signs Vital signs: Vital Signs Temp 97.4 F L 12/13/20 14:00 Pulse 56 L 12/13/20 14:00 Resp 18 12/13/20 14:00 BP 97/64 12/13/20 14:00 Pulse Ox 93 L 12/13/20 14:00 Intake & Output 12/12/20 12/13/20 12/13/20 18:59 06:59 18:59 Intake Total 1750 Output Total 280 850 Balance 1470 -850 Weight 71.3 kg Intake: IV 1750 Output: Drainage 80 200 Right Knee 80 200 Urine 650 Estimated Blood Loss 200 Other: Voiding Method Urinal Urinal # Voids 3 - Exam General: The patient is awake and alert, in no distress Eye: there is normal conjunctiva bilaterally. Neck: The neck is supple, there is no JVD. Cardiovascular: Normal S1-S2, no S3-S4, no murmurs. Respiratory: Lungs clear to auscultation bilaterally Gastrointestinal: Abdomen is soft, nontender Musculoskeletal: There is no pedal edema. Neurological:. Speech is normal. Skin: Skin is warm and dry - Labs CBC & Chem 7: 12/13/20 05:22 Labs: Abnormal Lab Results - Last 24 Hours (Table) 12/13/20 Range/Units 05:22 RBC 3.11 L (4.40-5.60) X 10*6/uL Hgb 10.5 L (13.0-17.0) g/dL Hct 33.5 L (39.6-50.0) % MCV 107.7 H (80.0-97.0) fL MCH 33.8 H (27.0-32.0) pg MCHC 31.3 L (32.0-37.0) g/dL MPV 9.4 L (9.5-12.2) fL Neutrophils # 8.26 H (1.80-7.70) X 10*3/uL Lymphocytes # 0.52 L (0.90-5.00) X 10*3/uL Eosinophils # 0 L (0.04-0.35) X 10*3/uL Assessment and Plan Assessment: Chronic conditions: History of CVA, BPH, COPD, dementia -Continue with home meds Status post right total knee replacement -Defer management including pain control to the surgery service
[2020-12-13] MEDS: SENNOSIDES-DOCUSATE SODIUM 1 EACH TAB PO SCH (21:42)
[2020-12-14] MEDS: LACTATED RINGERS 1,000 ML IV SCH ×3 (07:12→10:42)
[2020-12-14] MEDS: METOPROLOL SUCCINATE (ER) 25 MG TAB.ER.24H PO SCH (07:21)
[2020-12-14] MEDS: TAMSULOSIN 0.4 MG CAP.ER.24H PO SCH (07:21)
[2020-12-14] MEDS: ASPIRIN 81 MG PO SCH ×2 (07:21→20:25)
[2020-12-14] MEDS: DOXYCYCLINE 100 MG CAP PO SCH ×2 (10:33→20:25)
--- NOTE | 2020-12-14 14:38 | P.PN ---
Subjective Patient is doing well today. No acute events overnight. Objective - Vital Signs Vital signs: Vital Signs Temp 97.5 F L 12/14/20 07:43 Pulse 114 H 12/14/20 07:43 Resp 18 12/14/20 07:43 BP 120/82 12/14/20 07:43 Pulse Ox 96 12/14/20 07:43 Intake & Output 12/13/20 12/14/20 12/14/20 18:59 06:59 18:59 Intake Total 500 Output Total 250 410 Balance -250 90 Intake: Oral 500 Output: Drainage 100 210 Right Knee 100 210 Urine 150 200 Other: Voiding Method Diaper Incontinent # Voids 1 - Exam General: The patient is awake and alert, in no distress Eye: there is normal conjunctiva bilaterally. Neck: The neck is supple, there is no JVD. Cardiovascular: Normal S1-S2, no S3-S4, no murmurs. Respiratory: Lungs clear to auscultation bilaterally Gastrointestinal: Abdomen is soft, nontender Musculoskeletal: There is no pedal edema. Neurological:. Speech is normal. Skin: Skin is warm and dry - Labs CBC & Chem 7: 12/13/20 05:22 Assessment and Plan Assessment: Chronic conditions: History of CVA, BPH, COPD, dementia -Continue with home meds Status post right total knee replacement -Defer management including pain control and DVT prophylaxis to surgery service
--- NOTE | 2020-12-14 16:27 | P.PN ---
Subjective Progress Note Date: 12/14/20 This patient is an 89- year old male who is status-post right complex total knee arthroplasty on 12/12/[address] Cole. Today is post-operative day #2. Patient is seen and examined bedside. Patient states his pain is well-controlled. He is tolerating his diet. Patient has no new complaints or concerns today. Vital signs stable. Objective - Vital Signs Vital signs: Vital Signs Temp 98.5 F 12/14/20 15:00 Pulse 102 H 12/14/20 15:00 Resp 18 12/14/20 15:00 BP 106/69 12/14/20 15:00 Pulse Ox 98 12/14/20 15:00 Intake & Output 12/13/20 12/14/20 12/14/20 18:59 06:59 18:59 Intake Total 500 Output Total 250 410 Balance -250 90 Intake: Oral 500 Output: Drainage 100 210 Right Knee 100 210 Urine 150 200 Other: Voiding Method Diaper Incontinent # Voids 1 - Exam On examination, the patient is sitting up in bed in no apparent distress. He is alert and noted 3. On inspection of his right knee, there is a knee immobilizer in place. Hemovac drain and incisional VAC also in place. The right foot is warm and well-perfused, dorsalis pedis pulse palpable. Patient has good strength and zytph-rh-onaion of the right ankle. Motor and sensory function intact. Calf is soft and non-tender. - Labs CBC & Chem 7: 12/13/20 05:22 Assessment and Plan Assessment: Status-post right complex total knee arthroplasty on 12/12/[address] Cole. Post-operative day #2. Plan: - Patient may weight bear as tolerated on right knee with a walker. Up with assistance. - May begin to remove knee immobilizer. - Keep hemovac drain and incisional wound vac in place. - Physical therapy for gait and balance training. - Begin doxycycline 100mg BID due to high risk primary total knee. - Aspirin 81mg BID for DVT prophylaxis. - Internal medicine for elba-operative medical management. - Anticipate discharge home with home health care with next 1-2 days, pending medical clearance.
[2020-12-14] MEDS: SENNOSIDES-DOCUSATE SODIUM 1 EACH TAB PO SCH (20:25)
[2020-12-15] MEDS: LACTATED RINGERS 1,000 ML IV SCH ×4 (00:29→20:49)
[2020-12-15] MEDS: ASPIRIN 81 MG PO SCH ×2 (07:30→20:49)
[2020-12-15] MEDS: METOPROLOL SUCCINATE (ER) 25 MG TAB.ER.24H PO SCH (07:30)
[2020-12-15] MEDS: TAMSULOSIN 0.4 MG CAP.ER.24H PO SCH (07:30)
[2020-12-15] MEDS: DOXYCYCLINE 100 MG CAP PO SCH ×2 (07:30→20:49)
[2020-12-15 09:05] LABS: Basophils # (A) 0.03 X 10*3/uL (0.00-0.10); Basophils % (A) 0.5 %; Eosinophils # (A) 0.52 X 10*3/uL (0.04-0.35); Eosinophils % (A) 7.8 %; HGB 10.4 g/dL (13.0-17.0); Lymphocytes # (A) 0.97 X 10*3/uL (0.90-5.00); Lymphocytes % (A) 14.6 %; MCH 34.9 pg (27.0-32.0); MCHC 32.5 g/dL (32.0-37.0); MCV 107.4 fL (80.0-97.0); Mean Platelet Volume 9.5 fL (9.5-12.2); Monocytes # (A) 0.73 X 10*3/uL (0.20-1.00); Neutrophils # (A) 4.33 X 10*3/uL (1.80-7.70); Neutrophils % (A) 65.3 %; Platelet Count 141 X 10*3/uL (140-440); RBC 2.98 X 10*6/uL (4.40-5.60); RDW 14.1 % (11.5-14.5); WBC 6.63 X 10*3/uL (4.50-10.00)
--- NOTE | 2020-12-15 11:36 | P.PN ---
Subjective Patient is doing well today. He was up to the bedside commode this morning. No acute events overnight reported by nursing staff. Objective - Vital Signs Vital signs: Vital Signs Temp 98.3 F 12/15/20 07:00 Pulse 114 H 12/15/20 07:00 Resp 19 12/15/20 07:00 BP 136/96 12/15/20 07:00 Pulse Ox 98 12/15/20 07:00 Intake & Output 12/14/20 12/15/20 12/15/20 18:59 06:59 18:59 Output Total 280 230 Balance -280 -230 Output: Drainage 80 80 Right Knee 80 80 Urine 200 150 Other: # Voids 2 # Bowel Movements 1 - Exam General: The patient is awake and alert, in no distress Eye: there is normal conjunctiva bilaterally. Neck: The neck is supple, there is no JVD. Cardiovascular: Normal S1-S2, no S3-S4, no murmurs. Respiratory: Lungs clear to auscultation bilaterally Gastrointestinal: Abdomen is soft, nontender Musculoskeletal: There is no pedal edema. Neurological:. Speech is normal. Skin: Skin is warm and dry - Labs CBC & Chem 7: 12/15/20 06:41 Labs: Abnormal Lab Results - Last 24 Hours (Table) 12/15/20 Range/Units 06:41 RBC 2.98 L (4.40-5.60) X 10*6/uL Hgb 10.4 L (13.0-17.0) g/dL Hct 32.0 L (39.6-50.0) % MCV 107.4 H (80.0-97.0) fL MCH 34.9 H (27.0-32.0) pg Immature Gran # 0.05 H (0.00-0.04) X 10*3/uL Eosinophils # 0.52 H (0.04-0.35) X 10*3/uL Assessment and Plan Assessment: Chronic conditions: History of CVA, BPH, COPD, dementia -Continue with home meds Status post right total knee replacement -Defer management including pain control and DVT prophylaxis to surgery service Discharge planning to ECF possibly on Thursday per primary team Lab work in the morning
--- NOTE | 2020-12-15 13:30 | P.PN ---
Subjective Progress Note Date: 12/15/20 This patient is an 89- year old male who is status-post right complex total knee arthroplasty on 12/12/[address] Cole. Today is post-operative day #3. Patient is seen and examined bedside. Patient was also examined by Dr. Cole today. Patient states his pain is well- controlled. He is tolerating his diet well. He has been getting up with physical therapy, he is currently a two person transfer per PT. PT has recommended discharge to rehab. Patient has no new complaints. Vital signs stable. Objective - Vital Signs Vital signs: Vital Signs Temp 98.3 F 12/15/20 07:00 Pulse 114 H 12/15/20 07:00 Resp 19 12/15/20 07:00 BP 136/96 12/15/20 07:00 Pulse Ox 98 12/15/20 07:00 Intake & Output 12/14/20 12/15/20 12/15/20 18:59 06:59 18:59 Output Total 280 230 Balance -280 -230 Output: Drainage 80 80 Right Knee 80 80 Urine 200 150 Other: # Voids 2 # Bowel Movements 1 - Exam On examination, the patient is sitting up in bed in no apparent distress. He is alert and noted 3. On inspection of his right knee, there is an incisional VAC in place. Hemovac drain has been removed. Minimal swelling of the knee. The right foot is warm and well-perfused, dorsalis pedis pulse palpable. Patient has good strength and nizju-kq-jjckmo of the right ankle. Motor and sensory function intact. Calf is soft and non-tender. - Labs CBC & Chem 7: 12/15/20 06:41 Labs: Abnormal Lab Results - Last 24 Hours (Table) 12/15/20 Range/Units 06:41 RBC 2.98 L (4.40-5.60) X 10*6/uL Hgb 10.4 L (13.0-17.0) g/dL Hct 32.0 L (39.6-50.0) % MCV 107.4 H (80.0-97.0) fL MCH 34.9 H (27.0-32.0) pg Immature Gran # 0.05 H (0.00-0.04) X 10*3/uL Eosinophils # 0.52 H (0.04-0.35) X 10*3/uL Assessment and Plan Assessment: Status-post right complex total knee arthroplasty on 12/12/[address] Cole. Post-operative day #3. Plan: - Patient may weight bear as tolerated on right knee with a walker. Up with assistance. - Discontinue knee immobilizer. - Hemovac drain has been removed today bedside. Keep incisional wound vac in place. - Physical therapy for gait and balance training. - Continue doxycycline 100mg BID due to high risk primary total knee. - Aspirin 81mg BID for DVT prophylaxis. - Internal medicine for elba-operative medical management. - Case management was re-consulted for discharge planning. PT recommendations were discussed with the patient's . We will plan for discharge to rehab Thursday.
[2020-12-15] MEDS: SENNOSIDES-DOCUSATE SODIUM 1 EACH TAB PO SCH (19:56)
[2020-12-16] MEDS: LACTATED RINGERS 1,000 ML IV SCH ×4 (01:09→20:27)
[2020-12-16 07:08] LABS: African American GFR (CKD) >90 (>60 ml/min/1.73 sqM); Anion Gap 2 mmol/L; Blood Urea Nitrogen 27 mg/dL (9-20); Calcium 8.1 mg/dL (8.4-10.2); Carbon Dioxide 31 mmol/L (22-30); Chloride 103 mmol/L (98-107); Glucose 93 mg/dL (74-99); Non-African American GFR(CKD) 82 (>60 ml/min/1.73 sqM); Potassium 4.2 mmol/L (3.5-5.1); Sodium 136 mmol/L (137-145)
[2020-12-16] MEDS: METOPROLOL SUCCINATE (ER) 25 MG TAB.ER.24H PO SCH (09:21)
[2020-12-16] MEDS: ASPIRIN 81 MG PO SCH ×2 (09:21→20:27)
[2020-12-16] MEDS: TAMSULOSIN 0.4 MG CAP.ER.24H PO SCH (09:21)
[2020-12-16] MEDS: DOXYCYCLINE 100 MG CAP PO SCH ×2 (09:22→20:27)
[2020-12-16 09:31] LABS: Basophils # (A) 0.04 X 10*3/uL (0.00-0.10); Basophils % (A) 0.8 %; Eosinophils # (A) 0.59 X 10*3/uL (0.04-0.35); Eosinophils % (A) 11.2 %; HCT 30.9 % (39.6-50.0); HGB 9.6 g/dL (13.0-17.0); Lymphocytes # (A) 1.06 X 10*3/uL (0.90-5.00); MCH 33.7 pg (27.0-32.0); MCHC 31.1 g/dL (32.0-37.0); MCV 108.4 fL (80.0-97.0); Mean Platelet Volume 9.4 fL (9.5-12.2); Monocytes # (A) 0.56 X 10*3/uL (0.20-1.00); Monocytes % (A) 10.6 %; Neutrophils # (A) 2.99 X 10*3/uL (1.80-7.70); Neutrophils % (A) 56.5 %; Platelet Count 133 X 10*3/uL (140-440); RBC 2.85 X 10*6/uL (4.40-5.60); RDW 14.1 % (11.5-14.5); WBC 5.29 X 10*3/uL (4.50-10.00)
--- NOTE | 2020-12-16 10:15 | P.PN ---
Subjective Progress Note Date: 12/16/20 This patient is an 89- year old male who is status-post right complex total knee arthroplasty on 12/12/[address] Cole. Today is post-operative day #4. Patient is seen and examined bedside. Patient is currently working with physical therapy to the bedside chair. Patient states he has no pain in the right knee. He has no new complaints this morning. Discharge plan was re-assessed with patient, , and case management yesterday, and patient now plans to discharge to rehab. Vital signs stable. Objective - Vital Signs Vital signs: Vital Signs Temp 97.9 F 12/16/20 09:01 Pulse 115 H 12/16/20 09:01 Resp 19 12/16/20 09:01 BP 119/77 12/16/20 09:01 Pulse Ox 99 12/16/20 09:01 Intake & Output 12/15/20 12/16/20 12/16/20 18:59 06:59 18:59 Intake Total 480 Output Total 1200 Balance -720 Intake: Oral 480 Output: Urine 1200 Other: Voiding Method Incontinent External Catheter External Catheter # Voids 2 # Bowel Movements 0 - Exam On examination, the patient is sitting up on the edge of the bed in no apparent distress. He is alert and noted 3. On inspection of his right knee, there is an incisional VAC in place. Hemovac drain has been removed. Minimal swelling of the knee. The right foot is warm and well-perfused, dorsalis pedis pulse palpable. Patient has good strength and bjwri-da-[id number] of the right ankle. Motor and sensory function intact. Calf is soft and non-tender. - Labs CBC & Chem 7: 12/16/20 06:26 12/16/20 06:26 Labs: Abnormal Lab Results - Last 24 Hours (Table) 12/16/20 12/16/20 Range/Units 06:26 06:26 RBC 2.85 L (4.40-5.60) X 10*6/uL Hgb 9.6 L (13.0-17.0) g/dL Hct 30.9 L (39.6-50.0) % MCV 108.4 H (80.0-97.0) fL MCH 33.7 H (27.0-32.0) pg MCHC 31.1 L (32.0-37.0) g/dL Plt Count 133 L (140-440) X 10*3/uL MPV 9.4 L (9.5-12.2) fL Immature Gran # 0.05 H (0.00-0.04) X 10*3/uL Eosinophils # 0.59 H (0.04-0.35) X 10*3/uL Sodium 136 L (137-145) mmol/L Carbon Dioxide 31 H (22-30) mmol/L BUN 27 H (9-20) mg/dL Calcium 8.1 L (8.4-10.2) mg/dL Assessment and Plan Assessment: Status-post right complex total knee arthroplasty on 12/12/[address] Cole. Post-operative day #4. Plan: - Patient may weight bear as tolerated on right knee with a walker. Up with assistance. - Keep incisional wound vac in place. - Physical therapy for gait and balance training. - Continue doxycycline 100mg BID due to high risk primary total knee. - Aspirin 81mg BID for DVT prophylaxis. - Internal medicine for elba-operative medical management. - We will plan for discharge to rehab Thursday.
--- NOTE | 2020-12-16 16:19 | P.PN ---
Subjective Patient is doing well today. No acute events overnight reported by nursing staff. Objective - Vital Signs Vital signs: Vital Signs Temp 97.4 F L 12/16/20 13:00 Pulse 116 H 12/16/20 13:00 Resp 19 12/16/20 13:00 BP 103/66 12/16/20 13:00 Pulse Ox 98 12/16/20 13:00 Intake & Output 12/15/20 12/16/20 12/16/20 18:59 06:59 18:59 Intake Total 480 Output Total 1200 500 Balance -720 -500 Intake: Oral 480 Output: Urine 1200 500 Other: Voiding Method Incontinent External Catheter External Catheter # Voids 2 # Bowel Movements 0 - Exam General: The patient is awake and alert, in no distress Eye: there is normal conjunctiva bilaterally. Neck: The neck is supple, there is no JVD. Cardiovascular: Normal S1-S2, no S3-S4, no murmurs. Respiratory: Lungs clear to auscultation bilaterally Gastrointestinal: Abdomen is soft, nontender Musculoskeletal: There is no pedal edema. Neurological:. Speech is normal. Skin: Skin is warm and dry - Labs CBC & Chem 7: 12/16/20 06:26 12/16/20 06:26 Labs: Abnormal Lab Results - Last 24 Hours (Table) 12/16/20 12/16/20 Range/Units 06:26 06:26 RBC 2.85 L (4.40-5.60) X 10*6/uL Hgb 9.6 L (13.0-17.0) g/dL Hct 30.9 L (39.6-50.0) % MCV 108.4 H (80.0-97.0) fL MCH 33.7 H (27.0-32.0) pg MCHC 31.1 L (32.0-37.0) g/dL Plt Count 133 L (140-440) X 10*3/uL MPV 9.4 L (9.5-12.2) fL Immature Gran # 0.05 H (0.00-0.04) X 10*3/uL Eosinophils # 0.59 H (0.04-0.35) X 10*3/uL Sodium 136 L (137-145) mmol/L Carbon Dioxide 31 H (22-30) mmol/L BUN 27 H (9-20) mg/dL Calcium 8.1 L (8.4-10.2) mg/dL Assessment and Plan Assessment: Chronic conditions: History of CVA, BPH, COPD, dementia -Continue with home meds Status post right total knee replacement -Defer management including pain control and DVT prophylaxis to surgery service Discharge planning to ECF possibly on Thursday per primary team Lab work in the morning
[2020-12-16] MEDS: SENNOSIDES-DOCUSATE SODIUM 1 EACH TAB PO SCH (20:27)
[2020-12-17] MEDS: LACTATED RINGERS 1,000 ML IV SCH ×3 (05:48→18:35)
[2020-12-17] MEDS: TAMSULOSIN 0.4 MG CAP.ER.24H PO SCH (07:13)
[2020-12-17] MEDS: ASPIRIN 81 MG PO SCH (07:13)
[2020-12-17] MEDS: METOPROLOL SUCCINATE (ER) 25 MG TAB.ER.24H PO SCH (07:13)
[2020-12-17] MEDS: DOXYCYCLINE 100 MG CAP PO SCH (08:24)
--- NOTE | 2020-12-17 10:41 | P.PN ---
Subjective Patient is doing well today. No acute events overnight reported by nursing staff. Objective - Vital Signs Vital signs: Vital Signs Temp 97.6 F 12/17/20 07:08 Pulse 113 H 12/17/20 07:08 Resp 16 12/17/20 07:08 BP 117/86 12/17/20 07:08 Pulse Ox 100 12/17/20 07:08 Intake & Output 12/16/20 12/17/20 12/17/20 18:59 06:59 18:59 Output Total 500 500 Balance -500 -500 Output: Urine 500 500 Other: Voiding Method External Catheter External Catheter # Voids 2 # Bowel Movements 0 - Exam General: The patient is awake and alert, in no distress Eye: there is normal conjunctiva bilaterally. Neck: The neck is supple, there is no JVD. Cardiovascular: Normal S1-S2, no S3-S4, no murmurs. Respiratory: Lungs clear to auscultation bilaterally Gastrointestinal: Abdomen is soft, nontender Musculoskeletal: There is no pedal edema. Neurological:. Speech is normal. Skin: Skin is warm and dry - Labs CBC & Chem 7: 12/16/20 06:26 12/16/20 06:26 Assessment and Plan Assessment: Chronic conditions: History of CVA, BPH, COPD, dementia -Continue with home meds Status post right total knee replacement -Defer management including pain control and DVT prophylaxis to surgery service Discharge planning to ECF possibly today per primary team Lab work in the morning
--- NOTE | 2020-12-17 14:30 | P.DS ---
Providers Date of admission: 12/17/20 09:34 Expected date of discharge: 12/17/20 Attending physician: Mio Cole Consults: 12/12/20 17:19 Consult Physician Routine Consulting Provider: Raheem Swain Consult Reason/Comments: medical management Do you want consulting provider notified?: Yes Primary care physician: Ness Thomason MD Hospital Course: This is an 89-year-old male with known history of degenerative arthritis of the right knee. The patient presented for evaluation as an outpatient. After discussion and consideration patient elects to proceed with complex primary total knee arthroplasty. The patient is seen preoperatively by Dr. Cole. He was medically cleared for surgery by their primary care physician, Dr. Thomason. Patient is admitted to [facility] on 12/12/2020 for complex primary total knee arthroplasty. The procedure is performed without complication or sequelae. The patient is doing well postoperatively. Labs and vital signs are stable on post-operative day #5. Patient has been consistently tachycardic post-operatively, although per internal medicine, no additional testing is recommended. Metoprolol dose will be increased per internal medicine on discharge. Patient is seen and examined bedside this morning. Patient states he is experiencing no pain in the left knee. He has been up with therapy to the bedside chair. His wound VAC was removed bedside this morning and his incision is healing well. He is tolerating his diet well. He is voiding without issue. He states he has had a bowel movement postoperatively. He denies chest pain, shortness of breath, nausea, vomiting, fevers, chills. No complaints this morning. On examination, the patient is lying in bed in no apparent distress. He is alert and oriented 3. On inspection of the right knee, wound VAC is removed and reveals incision of the anterior knee that is healing very well. No surrounding erythema or wound. No signs of infection. No drainage. Motor and sensory function is intact of the right lower extremity. Dorsal pedis pulse +2. Right lower extremity is warm and well perfused. Calf is soft and nontender. Patient is discharged to rehab today in good condition, pending medical clearance. Please see med rec for accurate list of home medications. Plan - Discharge Summary Discharge Rx Participant: Yes New Discharge Prescriptions: New Aspirin 81 mg PO BID 30 Days #60 tab Doxycycline Monohydrate 100 mg PO BID 10 Days #20 cap Continue Levalbuterol Nebulized [Xopenex Nebulized] 1.25 mg INHALATION RT-TID PRN PRN Reason: Shortness Of Breath Budesonide [Pulmicort] 0.5 mg INHALATION RT-BID PRN PRN Reason: Shortness Of Breath Tamsulosin [Flomax] 0.4 mg PO DAILY #5 cap Acetaminophen Tab [Tylenol] 650 mg PO Q4H PRN #30 tablet PRN Reason: Pain Changed Metoprolol Succinate (ER) [Toprol XL] 50 mg PO DAILY #30 tab No Action Aspirin EC [Ecotrin] 325 mg PO DAILY Discharge Medication List Levalbuterol Nebulized [Xopenex Nebulized] 1.25 mg INHALATION RT-TID PRN 10/04/18 [History] Aspirin EC [Ecotrin] 325 mg PO DAILY 02/17/19 [History] Budesonide [Pulmicort] 0.5 mg INHALATION RT-BID PRN 02/17/19 [History] Acetaminophen Tab [Tylenol] 650 mg PO Q4H PRN #30 tablet 02/18/19 [Rx] Tamsulosin [Flomax] 0.4 mg PO DAILY #5 cap 02/18/19 [Rx] Aspirin 81 mg PO BID 30 Days #60 tab 12/17/20 [Rx] Doxycycline Monohydrate 100 mg PO BID 10 Days #20 cap 12/17/20 [Rx] Metoprolol Succinate (ER) [Toprol XL] 50 mg PO DAILY #30 tab 12/17/20 [Rx] Follow up Appointment(s)/Referral(s): [facility], [NON-STAFF] - Mio Cole MD [Medical Doctor] - 12/27/20 2:00 pm Activity/Diet/Wound Care/Special Instructions: Weight-bear as tolerated on the operative leg. Up with assistance, with a walker. Physical therapy for gait and balance training. Daily dressing changes with Adaptic, 4 x 4's, fluffs, Basim wrap. Aspirin for DVT prophylaxis. Doxycycline for wound healing prophylaxis. Follow-up in the office in [address] Cole. Call the office with any questions or concerns, Discharge Disposition: TRANSFER TO SNF/ECF
[2020-12-17 15:49] VITALS: BP 113/74; PULSE 111; RESP 18; TEMP 98.7
== END 2020-12-17 19:05 | DRG 470 ==
LOC: OR 10:34 → 4SSUR 16:40 → OR 12-13 13:37 → 4SSUR 12-13 13:37 → OR 12-14 13:37 → 4SSUR 12-15 13:37 → OBSVTOIN 12-17 09:34
PROVIDERS: ADMIT Orthopaedic Surgery; ATTEND Orthopaedic Surgery
PROC: 0SRC0J9 Replacement of Right Knee Joint with Synthetic Substitute, Cemented, Open Approach (ICD-10-PCS; principal; 2020-12-12 13:00)
DX: M17.11 Unilateral primary osteoarthritis, right knee (principal); S72.401P Unspecified fracture of lower end of right femur, subsequent encounter for closed fracture with malunion; M21.00 Valgus deformity, not elsewhere classified, unspecified site; I48.91 Unspecified atrial fibrillation; I69.320 Aphasia following cerebral infarction; J43.9 Emphysema, unspecified; N40.0 Benign prostatic hyperplasia without lower urinary tract symptoms; Z79.82 Long term (current) use of aspirin; Z20.822 Contact with and (suspected) exposure to COVID-19; Z79.899 Other long term (current) drug therapy; Z80.1 Family history of malignant neoplasm of trachea, bronchus and lung; F03.90 Unspecified dementia, unspecified severity, without behavioral disturbance, psychotic disturbance, mood disturbance, and anxiety; Z80.3 Family history of malignant neoplasm of breast; Z82.49 Family history of ischemic heart disease and other diseases of the circulatory system; Z87.891 Personal history of nicotine dependence
CPT/HCPCS: 80048; 85025; 87635; 88300; 93005; 94640

== ENCOUNTER 2021-01-08 15:17 | Inpatient (IN) | payer MEDICARE ==
--- NOTE | 2021-01-08 15:48 | ED ---
General Adult HPI - General Chief complaint: Recheck/Abnormal Lab/Rx Stated complaint: High HR Time Seen by Provider: 01/08/21 15:33 Source: EMS, RN notes reviewed, old records reviewed Mode of arrival: EMS Limitations: altered mental status (History of expressive aphasia) - History of Present Illness Initial comments: 89-year-old male presents for evaluation of tachycardia. History is quite limited on this patient. There is a history of atrial fibrillation in the medical record. The patient was noted at the group home to have a elevated heart rate and was sent in for evaluation. The patient has reported expressive aphasia. We will attempt to obtain additional history from the patient's . Patient is approximately 3 weeks status post right knee replacement. - Related Data Home Medications Medication Instructions Recorded Confirmed Levalbuterol Nebulized [Xopenex 1.25 mg INHALATION RT-TID PRN 10/04/18 01/08/21 Nebulized] Budesonide [Pulmicort] 0.5 mg INHALATION RT-BID PRN 02/17/19 01/08/21 Aspirin 81 mg PO BID@0800,1700 01/08/21 01/08/21 Aspirin EC [Ecotrin] 325 mg PO DIRECTED 01/08/21 01/08/21 Doxycycline Hyclate 100 mg PO BID@0800,1700 01/08/21 01/08/21 Furosemide [Lasix] 40 mg PO DAILY@0800 01/08/21 01/08/21 Magnesium Hydroxide [Milk of 7,200 mg PO DAILY PRN 01/08/21 01/08/21 Magnesia Concentrate] Metoprolol Succinate (ER) [Toprol 25 mg PO DAILY@0800 01/08/21 01/08/21 XL] Metoprolol Succinate [Toprol XL] 50 mg PO DAILY@0800 01/08/21 01/08/21 Na Phos,M-B/Na Phos,Di-Ba [Fleet 133 ml RECTAL DAILY PRN 01/08/21 01/08/21 Adult] Tamsulosin [Flomax] 0.4 mg PO DAILY@0800 01/08/21 01/08/21 bisacodyL [Dulcolax] 10 mg RECTAL DAILY PRN 01/08/21 01/08/21 Previous Rx's Medication Instructions Recorded Acetaminophen Tab [Tylenol] 650 mg PO Q4H PRN #30 tablet 02/18/19 Allergies Allergy/AdvReac Type Severity Reaction Status Date / Time cefuroxime [From Ceftin] Allergy Rash/Hives Verified 01/08/21 16:11 simvastatin AdvReac Severe Kidney Verified 01/08/21 16:11 Issues Review of Systems ROS Statement: Those systems with pertinent positive or pertinent negative responses have been documented in the HPI. ROS Other: All systems not noted in ROS Statement are negative. Past Medical History Past Medical History: Atrial Fibrillation, COPD, CVA/TIA, Memory Impairment, Osteoarthritis (OA) Additional Past Medical History / Comment(s): broncitis, emphysema History of Any Multi-Drug Resistant Organisms: None Reported Past Surgical History: Appendectomy, Hernia Repair, Orthopedic Surgery Additional Past Surgical History / Comment(s): Fractured right ankle and left arm. hernia repair with mesh. Cateract surgery 10/2020 Past Anesthesia/Blood Transfusion Reactions: No Reported Reaction Past Psychological History: No Psychological Hx Reported Smoking Status: Former smoker Past Alcohol Use History: Daily Past Drug Use History: None Reported - Past Family History Father Family Medical History: AFIB, Cancer Additional Family Medical History / Comment(s): Cancer Mother Family Medical History: AFIB, Cancer Additional Family Medical History / Comment(s): Breast CA Sister(s) Family Medical History: AFIB Additional Family Medical History / Comment(s): 2 sisters with breast CA Brother(s) Family Medical History: AFIB, Cancer, Myocardial Infarction (NM) Additional Family Medical History / Comment(s): Lung CA General Exam Limitations: no limitations General appearance: alert, in no apparent distress Head exam: Present: atraumatic, normocephalic Eye exam: Present: normal appearance, PERRL ENT exam: Present: normal exam Neck exam: Present: normal inspection. Absent: tenderness, meningismus Respiratory exam: Present: rales. Absent: respiratory distress, wheezes Cardiovascular Exam: Present: tachycardia, irregular rhythm GI/Abdominal exam: Present: soft. Absent: distended, tenderness Extremities exam: Present: other (incision right anterior knee, is well healed, no erythema no purulence) Neurological exam: Present: alert, other (Expressive aphasia). Absent: motor sensory deficit Skin exam: Present: warm, dry, intact. Absent: cyanosis, diaphoretic Course Vital Signs 01/08/21 01/08/21 15:34 16:30 Temperature 98.2 F Pulse Rate 131 H 137 H Respiratory 20 18 Rate Blood Pressure 122/94 117/89 O2 Sat by Pulse 100 10 L Oximetry EKG Findings - EKG Comments: EKG Findings:: EKG: Atrial flutter with variable AV block rightward axis, rate of 117, QRS duration 104, QTC 5:30, no ST segment elevation. T-wave inversion in the lateral precordial leads. Medical Decision Making - Medical Decision Making 89-year-old male presenting with tachycardia, history of atrial fibrillation. History of previous stroke. Patient not anticoagulated, says that he has not been anticoagulated in many years since the patient's choice. He is found to be in atrial flutter with a high ventricular rate. He has mild tachypnea and rales bilaterally. Workup is initiated, he has a chest x-ray showing some pulmonary increased pulmonary vascular congestion. He is given Lasix, started on Cardizem. He will be admitted for diuresis, and rate control. Case discussed with Dr. Swain, who will admit. Cardiology placed on consultation. There was a delay in the lab obtaining the troponin level. This result is pending. - Lab Data Result diagrams: 01/08/21 15:54 01/08/21 15:54 Lab Results 01/08/21 01/08/21 01/08/21 Range/Units 15:54 15:54 15:54 WBC 4.2 (3.8-10.6) k/uL RBC 3.36 L (4.30-5.90) m/uL Hgb 11.7 L (13.0-17.5) gm/dL Hct 37.2 L (39.0-53.0) % MCV 110.8 H (80.0-100.0) fL MCH 34.9 (25.0-35.0) pg MCHC 31.5 (31.0-37.0) g/dL RDW 14.1 (11.5-15.5) % Plt Count 149 L (150-450) k/uL MPV 8.1 Neutrophils % 63 % Lymphocytes % 20 % Monocytes % 8 % Eosinophils % 5 % Basophils % 0 % Neutrophils # 2.6 (1.3-7.7) k/uL Lymphocytes # 0.8 L (1.0-4.8) k/uL Monocytes # 0.3 (0-1.0) k/uL Eosinophils # 0.2 (0-0.7) k/uL Basophils # 0.0 (0-0.2) k/uL Hypochromasia Moderate Macrocytosis Marked A PT 13.5 H (9.0-12.0) sec INR 1.3 H (<1.2) APTT 23.8 (22.0-30.0) sec Sodium 140 (137-145) mmol/L Potassium 4.0 (3.5-5.1) mmol/L Chloride 96 L (98-107) mmol/L Carbon Dioxide 40 H (22-30) mmol/L Anion Gap 4 mmol/L BUN 44 H (9-20) mg/dL Creatinine 1.13 (0.66-1.25) mg/dL Est GFR (CKD-EPI)AfAm 67 (>60 ml/min/1.73 sqM) Est GFR (CKD-EPI)NonAf 58 (>60 ml/min/1.73 sqM) Glucose 125 H (74-99) mg/dL Calcium 8.3 L (8.4-10.2) mg/dL Magnesium 1.9 (1.6-2.3) mg/dL Total Bilirubin 0.7 (0.2-1.3) mg/dL AST 36 (17-59) U/L ALT 19 (4-49) U/L Alkaline Phosphatase 101 (38-126) U/L Total Protein 6.0 L (6.3-8.2) g/dL Albumin 3.2 L (3.5-5.0) g/dL TSH 2.940 (0.465-4.680) mIU/L Critical Care Time Critical Care Time: Yes Total Critical Care Time: 35 Disposition Clinical Impression: Atrial fibrillation with RVR, CHF (congestive heart failure) Disposition: ADMITTED IP TO THIS [facility] Condition: Stable Is patient prescribed a controlled substance at d/c from ED?: No Referrals: Ness Thomason MD [Primary Care Provider] - 1-2 days Decision to Admit Reason: Admit from EC Decision Date: 01/08/21 Decision Time: 17:47
[2021-01-08] MEDS ORDERED: DILTIAZEM 125 MG in SODIUM CHLORIDE 0.9% 100 ML IV SCH (16:00)
[2021-01-08] MEDS ORDERED: DILTIAZEM DRIP BOLUS FROM BAG 1 MG SOLN IV ONE (16:00)
[2021-01-08 16:03] LABS: Basophils % (A) 0 %; Eosinophils # (A) 0.2 k/uL (0-0.7); Eosinophils % (A) 5 %; HCT 37.2 % (39.0-53.0); HGB 11.7 gm/dL (13.0-17.5); Hypochromasia Moderate; Lymphocytes # (A) 0.8 k/uL (1.0-4.8); Lymphocytes % (A) 20 %; MCH 34.9 pg (25.0-35.0); MCHC 31.5 g/dL (31.0-37.0); MCV 110.8 fL (80.0-100.0); Macrocytosis Marked; Mean Platelet Volume 8.1; Monocytes # (A) 0.3 k/uL (0-1.0); Monocytes % (A) 8 %; Neutrophils # (A) 2.6 k/uL (1.3-7.7); Neutrophils % (A) 63 %; Platelet Count 149 k/uL (150-450); RBC 3.36 m/uL (4.30-5.90); RDW 14.1 % (11.5-15.5); WBC 4.2 k/uL (3.8-10.6)
[2021-01-08 16:17] LABS: INR 1.3 (<1.2); Partial Thromboplastin Time 23.8 sec (22.0-30.0); Prothrombin Time 13.5 sec (9.0-12.0)
[2021-01-08 16:18] LABS: Albumin 3.2 g/dL (3.5-5.0); Calcium 8.3 mg/dL (8.4-10.2); Magnesium 1.9 mg/dL (1.6-2.3); Total Bilirubin 0.7 mg/dL (0.2-1.3)
--- NOTE | 2021-01-08 16:23 | XR ---
EXAMINATION TYPE: XR chest 1V portable DATE OF EXAM: 01/08/2021 COMPARISON: Chest x-ray March 07, 2010. CT chest February 14, 2016 HISTORY: Dysrhythmia. TECHNIQUE: Single AP portable frontal upright view of the chest is obtained. FINDINGS: There is cardiomegaly with small bilateral pleural effusions and mild interstitial edema. There is atherosclerotic thoracic aorta. The osseous structures are demineralized. High riding right humeral head suggests chronic rotator cuff tear. IMPRESSION: Possible CHF exacerbation as there is cardiomegaly with small to tiny bilateral pleural effusions and mild bilateral interstitial edema.
--- NOTE | 2021-01-08 16:31 | US ---
EXAMINATION TYPE: US venous doppler duplex LE RT DATE OF EXAM: 01/08/2021 4:01 PM COMPARISON: NONE CLINICAL HISTORY: swelling. SIDE PERFORMED: Right TECHNIQUE: The lower extremity deep venous system is examined utilizing real time linear array sonog stella with graded compression, doppler sonography and color-flow sonography. VESSELS IMAGED: Common Femoral Vein Deep Femoral Vein Greater Saphenous Vein * Femoral Vein Popliteal Vein Small Saphenous Vein * Proximal Calf Veins (* superficial vessels) Right Leg: Negative for DVT Grayscale, color doppler, spectral doppler imaging performed of the deep veins of the right lower ext remity. There is normal flow, compressibility, vascular waveforms. [id number] diffuse subcutan eous edema is seen distally. IMPRESSION: No ultrasound evidence for acute DVT in the right lower extremity.
[2021-01-08] MEDS ORDERED: FUROSEMIDE 10 MG/ML 4 ML VIAL IV STA (17:11)
[2021-01-08] MEDS ORDERED: ACETAMINOPHEN TAB 325 MG TAB PO PRN ×2 (17:43→21:26)
[2021-01-08] MEDS ORDERED: NALOXONE 0.4 MG/ML 1 ML VIAL IV PRN (17:43)
[2021-01-08] MEDS ORDERED: BUDESONIDE 0.5 MG/2 ML NEBU INHALATION PRN (21:26)
[2021-01-08] MEDS ORDERED: bisacodyL 10 MG SUPP RECTAL PRN (21:26)
--- NOTE | 2021-01-08 23:55 | P.HPIM ---
History of Present Illness H&P Date: 01/08/21 Chief Complaint: tachycardia 89 year old male with afib not on anticoagulation , CVA patient is a [place] resident, he was noted to have tachycardia today, and sent in for evaluation . patient has aphasia and provided very limited history . he denies any current chest pain or trouble breathing, he denies any abd pain , fever, chills, N/V, denies any dizziness or light headedness. patient is only able to answer leading questions with yes or no. no report of GI bleeding in the ED , EKG showed aflutter/afib. initial trop elevated, unknown baseline. patient is 3 weeks s/p right total knee arthroplasty Echo cardiogram 2018 LVEF 35-40% mild anemia CXR showed pulmonary vascular congestion patient reports frequent falling at home, he uses a walker to ambulate Review of Systems patient has aphasia and only provides limited history Past Medical History Past Medical History: Atrial Fibrillation, COPD, CVA/TIA, Memory Impairment, Osteoarthritis (OA) Additional Past Medical History / Comment(s): broncitis, emphysema History of Any Multi-Drug Resistant Organisms: None Reported Past Surgical History: Appendectomy, Hernia Repair, Orthopedic Surgery Additional Past Surgical History / Comment(s): Fractured right ankle and left arm. hernia repair with mesh. Cateract surgery 10/2020 Past Anesthesia/Blood Transfusion Reactions: No Reported Reaction Past Psychological History: No Psychological Hx Reported Smoking Status: Former smoker Past Alcohol Use History: Daily Past Drug Use History: None Reported - Past Family History Father Family Medical History: AFIB, Cancer Additional Family Medical History / Comment(s): Cancer Mother Family Medical History: AFIB, Cancer Additional Family Medical History / Comment(s): Breast CA Sister(s) Family Medical History: AFIB Additional Family Medical History / Comment(s): 2 sisters with breast CA Brother(s) Family Medical History: AFIB, Cancer, Myocardial Infarction ([place]) Additional Family Medical History / Comment(s): Lung CA Medications and Allergies Home Medications Medication Instructions Recorded Confirmed Type Levalbuterol Nebulized [Xopenex 1.25 mg INHALATION RT-TID PRN 10/04/18 01/08/21 History Nebulized] Budesonide [Pulmicort] 0.5 mg INHALATION RT-BID PRN 02/17/19 01/08/21 History Acetaminophen Tab [Tylenol] 650 mg PO Q4H PRN #30 tablet 02/18/19 01/08/21 Rx Aspirin 81 mg PO BID@0800,1700 01/08/21 01/08/21 History Aspirin EC [Ecotrin] 325 mg PO DIRECTED 01/08/21 01/08/21 History Doxycycline Hyclate 100 mg PO BID@0800,1700 01/08/21 01/08/21 History Furosemide [Lasix] 40 mg PO DAILY@0800 01/08/21 01/08/21 History Magnesium Hydroxide [Milk of 7,200 mg PO DAILY PRN 01/08/21 01/08/21 History Magnesia Concentrate] Metoprolol Succinate (ER) [Toprol 25 mg PO DAILY@0800 01/08/21 01/08/21 History XL] Metoprolol Succinate [Toprol XL] 50 mg PO DAILY@0800 01/08/21 01/08/21 History Na Phos,M-B/Na Phos,Di-Ba [Fleet 133 ml RECTAL DAILY PRN 01/08/21 01/08/21 History Adult] Tamsulosin [Flomax] 0.4 mg PO DAILY@0800 01/08/21 01/08/21 History bisacodyL [Dulcolax] 10 mg RECTAL DAILY PRN 01/08/21 01/08/21 History Allergies Allergy/AdvReac Type Severity Reaction Status Date / Time cefuroxime [From Ceftin] Allergy Rash/Hives Verified 01/08/21 16:11 simvastatin AdvReac Severe Kidney Verified 01/08/21 16:11 Issues Physical Exam Vitals: Vital Signs Temp Pulse Resp BP Pulse Ox 01/08/21 23:00 108 H 18 106/76 98 01/08/21 20:00 91 18 106/75 97 01/08/21 19:04 74 16 111/77 97 01/08/21 18:19 75 18 107/74 97 01/08/21 16:30 137 H 18 117/89 10 L 01/08/21 15:34 98.2 F 131 H 20 122/94 100 Intake and Output 01/08/21 01/08/21 01/09/21 14:59 22:59 06:59 Intake Total 14.25 9.917 Balance 14.25 9.917 Intake: Intake, IV Titration 14.25 9.917 Amount Diltiazem 125 mg In . 9.7 Sodium Chloride 0.9% 100 ml @ 5 MG/HR 5 mls/hr IV .Q24H [facility] Rx#:[id number] Other: Weight 90.718 kg Constitutional: No acute distress, expressive aphasia, pleasant, follows commands Eyes: Anicteric sclerae, moist conjunctiva, Pupils equal round reactive to light ENMT: NC/AT Oropharynx clear, no erythema, or exudates Neck: Supple, FROM, no masses, or JVD No carotid bruits No thyromegaly Lungs: bilateral basal inspiratory rales Clear to percussion Normal respiratory effort, no accessory muscle use Cardiovascular: Heart irregular in rate and rhythm, No murmurs, gallops, or rubs +2 bilateral peripheral edema Abdominal: Soft Nontender, no guarding, rebound or rigidity Abdomen moving with respiration Normoactive bowel sounds No hepatomegaly, No splenomegaly No palpable mass No abdominal wall hernia noted Skin: Normal temperature, tone, texture, turgor No induration No subcutaneous nodules No rash, lesions No ulcers Extremities: No digital cyanosis No clubbing Pedal pulses intact and symmetrical Radial pulses intact and symmetrical No calf tenderness Psychiatric: Alert and oriented to person Appropriate affect Neuro Muscles Strength 3/5 bilateral legs, 4/5 bilateral upper extremities Sensation to light touch grossly present throughout Cranial nerves II-XII grossly intact Lymphatics: no palpable cervical or supraclavicular , or inguinal lymph nodes Results CBC & Chem 7: 01/08/21 15:54 01/08/21 15:54 Labs: Abnormal Lab Results - Last 24 Hours (Table) 01/08/21 01/08/21 01/08/21 Range/Units 15:54 15:54 15:54 RBC 3.36 L (4.30-5.90) m/uL Hgb 11.7 L (13.0-17.5) gm/dL Hct 37.2 L (39.0-53.0) % MCV 110.8 H (80.0-100.0) fL Plt Count 149 L (150-450) k/uL Lymphocytes # 0.8 L (1.0-4.8) k/uL Macrocytosis Marked A PT 13.5 H (9.0-12.0) sec INR 1.3 H (<1.2) Chloride 96 L (98-107) mmol/L Carbon Dioxide 40 H (22-30) mmol/L BUN 44 H (9-20) mg/dL Glucose 125 H (74-99) mg/dL Calcium 8.3 L (8.4-10.2) mg/dL Troponin I (0.000-0.034) ng/mL Total Protein 6.0 L (6.3-8.2) g/dL Albumin 3.2 L (3.5-5.0) g/dL 01/08/21 01/08/21 Range/Units 15:54 21:40 RBC (4.30-5.90) m/uL Hgb (13.0-17.5) gm/dL Hct (39.0-53.0) % MCV (80.0-100.0) fL Plt Count (150-450) k/uL Lymphocytes # (1.0-4.8) k/uL Macrocytosis PT (9.0-12.0) sec INR (<1.2) Chloride (98-107) mmol/L Carbon Dioxide (22-30) mmol/L BUN (9-20) mg/dL Glucose (74-99) mg/dL Calcium (8.4-10.2) mg/dL Troponin I 0.042 H* 0.045 H* (0.000-0.034) ng/mL Total Protein (6.3-8.2) g/dL Albumin (3.5-5.0) g/dL Assessment and Plan Assessment: afib with RVR,. not on anticoagulation h/o of CVA acute on chronic systolic CHF exacerbation elevated trops, demand ischemia vs NSTEMI , patient denies any chest pain or trouble breathing plan cardizem drip to control heart rate fall precautions cardiology eval trend trops, if going up, will consider anticoagulation monitor vital signs follow up electrolytes CXR pulmonary vascular congestion Lasix IV daily venous doppler US no acute DVT chronic conditions mild anemia COPD , compensated OA dementia CVA resume home meds full code DVT PPX heparin sc tid anticipated length of stay < 2 midnights anticipated discharge , [place]
[2021-01-09 03:55] LABS: HCT 40.4 % (39.0-53.0); HGB 12.4 gm/dL (13.0-17.5); Hypochromasia Slight; MCH 34.3 pg (25.0-35.0); MCHC 30.8 g/dL (31.0-37.0); MCV 111.5 fL (80.0-100.0); Macrocytosis Marked; Mean Platelet Volume 7.8; Platelet Count 104 k/uL (150-450); RBC 3.62 m/uL (4.30-5.90); RDW 14.5 % (11.5-15.5); WBC 4.5 k/uL (3.8-10.6)
[2021-01-09 04:20] LABS: Albumin 3.3 g/dL (3.5-5.0); Calcium 8.5 mg/dL (8.4-10.2); Magnesium 1.9 mg/dL (1.6-2.3); Potassium 4.3 mmol/L (3.5-5.1); Total Bilirubin 1.1 mg/dL (0.2-1.3); Total Protein 6.1 g/dL (6.3-8.2)
[2021-01-09 04:52] LABS: Eosinophils # (M) 0.27 k/uL (0-0.7); Lymphocytes # (M) 1.04 k/uL (1.0-4.8); Monocytes # (M) 0.59 k/uL (0-1.0); Neutrophils # (M) 2.61 k/uL (1.3-7.7); Neutrophils % (M) 58 %; Nucleated Red Blood Cells 0 /100 WBC (0-0); Total Cells Counted 100
[2021-01-09] MEDS ORDERED: METOPROLOL SUCCINATE (ER) 50 MG TAB.ER.24H PO SCH (09:00)
[2021-01-09] MEDS: FUROSEMIDE 10 MG/ML 4 ML VIAL IV SCH (09:32)
[2021-01-09] MEDS: METOPROLOL SUCCINATE (ER) 50 MG TAB.ER.24H PO SCH ×2 (09:32→20:00)
[2021-01-09] MEDS: ASPIRIN 81 MG PO SCH ×2 (09:32→20:00)
[2021-01-09] MEDS: TAMSULOSIN 0.4 MG CAP.ER.24H PO SCH (09:32)
--- NOTE | 2021-01-09 12:41 | P.CRDCN ---
History of Present Illness Consult date: 01/09/21 History of present illness: HISTORY OF PRESENT ILLNESS: This is a 89-year-old male with a past medical history significant for paroxysmal atrial fibrillation opting not to take anticoagulation, CVA with residual aphasia, congestive heart failure, and hypertension. Patient follows in the office with Dr. Bynum but was last seen in 2019. We have been asked to see the patient in consultation for afib with RVR and CHF. Patient examined at the bedside. Patient has been at [facility] for rehab following a total knee replacement. He was found to be tachycardic and was brought to the hospital for further evaluation. EKG performed on arrival revealed atrial fibrillation with RVR. The patient denies chest pain or pressure. He denies shortness of breath. EKG reveals A. fib with RVR Chest xray possible CHF exacerbation as there is cardiomegaly with multiple tiny bilateral pleural effusions and mild bilateral interstitial edema Laboratory data: WBC 4.5. Hemoglobin 12.4. Platelet count 104. Sodium 139. Potassium 4.3. BUN 3. Creatinine 1.04. Magnesium 1.9. Troponin 0.042. 0.045. ProBNP 4660. TSH 2.940. Current home cardiac medications include aspirin 81 mg twice a day, metoprolol succinate 75 mg daily, Lasix 40 mg daily Most recent echocardiogram obtained in 2019 revealed ejection fraction 35-40%. REVIEW OF SYSTEMS: At the time of my exam: CONSTITUTIONAL: Denies fever or chills. HEENT: Denies blurred vision, vision changes, or eye pain. Denies hemoptysis CARDIOVASCULAR: Denies chest pain. Denies orthopnea. Denies PND. Denies palpitations RESPIRATORY: Denies shortness of breath. GASTROINTESTINAL: Denies abdominal pain. Denies nausea or vomiting. HEMATOLOGIC: Denies bleeding disorders. GENITOURINARY: Denies any blood in urine. SKIN: Denies pruitis. Denies rash. PHYSICAL EXAM: VITAL SIGNS: Reviewed. GENERAL: Well-developed in no acute distress. HEENT: Head is normocephalic. Pupils are equal, round. Sclerae anicteric. Mucous membranes of the mouth are moist. Neck supple. No JVD or thyromegaly LUNGS: Respirations even and unlabored. Lungs diminished to auscultation bilaterally. HEART: Tachycardic. Irregular rate and rhythm. S1 and S2 heard. ABDOMEN: Soft. Nondistended. Nontender. EXTREMITIES: Normal range of motion. No clubbing or cyanosis. Peripheral pulses intact. Bilateral lower extremity edema noted NEUROLOGIC: Awake and alert. Oriented x 3. ASSESSMENT: Excisional atrial fibrillation with RVR, patient opted not to take anticoagulation Acute on chronic systolic heart failure History of CVA with subsequent aphasia Recent total knee replacement Cardiomyopathy, ejection fraction 35-40, type unknown Hypertension abnormal troponins, not suggestive of acute coronary syndrome PLAN: Obtain 2-D echo to assess cardiac structure and function Discontinue IV cardizem secondary to hx of decreased EF Resume home cardiac medications Increase metoprolol to 50mg twice a day Continue Lasix 40 mg IV daily Daily weights Accurate I&O Monitor kidney function Further recommendations pending patient's course Nurse practitioner note has been reviewed by physician. Signing provider agrees with the documented findings, assessment, and plan of care. Past Medical History Past Medical History: Atrial Fibrillation, COPD, CVA/TIA, Memory Impairment, Osteoarthritis (OA) Additional Past Medical History / Comment(s): broncitis, emphysema History of Any Multi-Drug Resistant Organisms: None Reported Past Surgical History: Appendectomy, Hernia Repair, Orthopedic Surgery Additional Past Surgical History / Comment(s): Fractured right ankle and left arm. hernia repair with mesh. Cateract surgery 10/2020 Past Anesthesia/Blood Transfusion Reactions: No Reported Reaction Past Psychological History: No Psychological Hx Reported Smoking Status: Former smoker Past Alcohol Use History: Daily Past Drug Use History: None Reported - Past Family History Father Family Medical History: AFIB, Cancer Additional Family Medical History / Comment(s): Cancer Mother Family Medical History: AFIB, Cancer Additional Family Medical History / Comment(s): Breast CA Sister(s) Family Medical History: AFIB Additional Family Medical History / Comment(s): 2 sisters with breast CA Brother(s) Family Medical History: AFIB, Cancer, Myocardial Infarction ([place]) Additional Family Medical History / Comment(s): Lung CA Medications and Allergies Home Medications Medication Instructions Recorded Confirmed Type Levalbuterol Nebulized [Xopenex 1.25 mg INHALATION RT-TID PRN 10/04/18 01/08/21 History Nebulized] Budesonide [Pulmicort] 0.5 mg INHALATION RT-BID PRN 02/17/19 01/08/21 History Acetaminophen Tab [Tylenol] 650 mg PO Q4H PRN #30 tablet 02/18/19 01/08/21 Rx Aspirin 81 mg PO BID@0800,1700 01/08/21 01/08/21 History Aspirin EC [Ecotrin] 325 mg PO DIRECTED 01/08/21 01/08/21 History Doxycycline Hyclate 100 mg PO BID@0800,1700 01/08/21 01/08/21 History Furosemide [Lasix] 40 mg PO DAILY@0800 01/08/21 01/08/21 History Magnesium Hydroxide [Milk of 7,200 mg PO DAILY PRN 01/08/21 01/08/21 History Magnesia Concentrate] Metoprolol Succinate (ER) [Toprol 25 mg PO DAILY@0800 01/08/21 01/08/21 History XL] Metoprolol Succinate [Toprol XL] 50 mg PO DAILY@0800 01/08/21 01/08/21 History Na Phos,M-B/Na Phos,Di-Ba [Fleet 133 ml RECTAL DAILY PRN 01/08/21 01/08/21 History Adult] Tamsulosin [Flomax] 0.4 mg PO DAILY@0800 01/08/21 01/08/21 History bisacodyL [Dulcolax] 10 mg RECTAL DAILY PRN 01/08/21 01/08/21 History Allergies Allergy/AdvReac Type Severity Reaction Status Date / Time cefuroxime [From Ceftin] Allergy Rash/Hives Verified 01/08/21 16:11 simvastatin AdvReac Severe Kidney Verified 01/08/21 16:11 Issues Physical Exam Vitals: Vital Signs Temp Pulse Resp BP Pulse Ox 01/09/21 09:53 98 18 104/80 98 01/09/21 06:44 73 18 110/83 97 01/09/21 05:06 98.3 F 66 18 114/83 97 01/09/21 02:13 67 18 113/78 100 01/08/21 23:00 108 H 18 106/76 98 01/08/21 20:00 91 18 106/75 97 01/08/21 19:04 74 16 111/77 97 01/08/21 18:19 75 18 107/74 97 01/08/21 16:30 137 H 18 117/89 10 L 01/08/21 15:34 98.2 F 131 H 20 122/94 100 Intake and Output 01/08/21 01/09/21 01/09/21 22:59 06:59 14:59 Intake Total 14 18.417 Balance 18417 Intake: Intake, IV Titration 18.417 Amount Diltiazem 125 mg In 18.417 Sodium Chloride 0.9% 100 ml @ 5 MG/HR 5 mls/hr IV .Q24H [facility] Rx#:[id number] Other: Weight 90.718 kg Results 01/09/21 03:20 01/09/21 03:20 Cardiac Enzymes 01/08/21 01/08/21 01/08/21 Range/Units 15:54 15:54 21:40 AST 36 (17-59) U/L Troponin I 0.042 H* 0.045 H* (0.000-0.034) ng/mL 01/09/21 Range/Units 03:20 AST 39 (17-59) U/L Troponin I (0.000-0.034) ng/mL Coagulation 01/08/21 Range/Units 15:54 PT 13.5 H (9.0-12.0) sec APTT 23.8 (22.0-30.0) sec CBC 01/08/21 01/09/21 Range/Units 15:54 03:20 WBC 4.2 4.5 (3.8-10.6) k/uL RBC 3.36 L 3.62 L (4.30-5.90) m/uL Hgb 11.7 L 12.4 L (13.0-17.5) gm/dL Hct 37.2 L 40.4 (39.0-53.0) % Plt Count 149 L 104 L (150-450) k/uL Comprehensive Metabolic Panel 01/08/21 01/09/21 Range/Units 15:54 03:20 Sodium 140 139 (137-145) mmol/L Potassium 4.0 4.3 (3.5-5.1) mmol/L Chloride 96 L 96 L (98-107) mmol/L Carbon Dioxide 40 H 38 H (22-30) mmol/L BUN 44 H 43 H (9-20) mg/dL Creatinine 1.13 1.04 (0.66-1.25) mg/dL Glucose 125 H 91 (74-99) mg/dL Calcium 8.3 L 8.5 (8.4-10.2) mg/dL AST 36 39 (17-59) U/L ALT 19 18 (4-49) U/L Alkaline Phosphatase 101 93 (38-126) U/L Total Protein 6.0 L 6.1 L (6.3-8.2) g/dL Albumin 3.2 L 3.3 L (3.5-5.0) g/dL Current Medications Generic Name Dose Route Start Last Admin Trade Name Freq PRN Reason Stop Dose Admin Acetaminophen 650 mg 01/08/21 21:26 Acetaminophen Tab 325 Mg Tab PO Q4H PRN Pain Aspirin 81 mg 01/09/21 09:00 01/09/21 09:32 Aspirin 81 Mg PO 81 mg BID MARY Administration Bisacodyl 10 mg 01/08/21 21:26 Bisacodyl 10 Mg Supp RECTAL DAILY PRN Constipation Budesonide 0.5 mg 01/08/21 21:26 Budesonide 0.5 Mg/2 Ml Nebu INHALATION RT-BID PRN Shortness Of Breath Furosemide 40 mg 01/09/21 09:00 01/09/21 09:32 Furosemide 10 Mg/Ml 4 Ml Vial IV 40 mg DAILY MARY Administration Metoprolol Succinate 50 mg 01/09/21 09:15 01/09/21 09:32 Metoprolol Succinate (Er) 50 Mg Tab.Er.24h PO 50 mg BID MARY Administration Naloxone HCl 0.2 mg 01/08/21 17:43 Naloxone 0.4 Mg/Ml 1 Ml Vial IV Q2M PRN Opioid Reversal Tamsulosin HCl 0.4 mg 01/09/21 09:00 01/09/21 09:32 Tamsulosin 0.4 Mg Cap.Er.24h PO 0.4 mg DAILY MARY Administration Intake and Output 01/08/21 01/09/21 01/09/21 22:59 06:59 14:59 Intake Total 18.417 Balance 18417 Intake: Intake, IV Titration 18. Amount Diltiazem 125 mg In 18.417 Sodium Chloride 0.9% 100 ml @ 5 MG/HR 5 mls/hr IV .Q24H [facility] Rx#:[id number] Other: Weight 90.718 kg 01/09/21 03:20 01/09/21 03:20
--- NOTE | 2021-01-09 20:56 | P.PN ---
Subjective Progress Note Date: 01/09/21 (delayed charting seen at 11) Patient is an 89-year-old male for history of atrial fibrillation not on anticoagulation, COPD, CVA with resulting a aphasia who [facility] secondary to tachycardia. In the ER he underwent an extensive evaluation. Initial laboratory analysis showed his known anemia. Troponin was mildly elevated at 0.042 but remained flat. TSH was within normal limits. Chest x-ray demonstrated cardiomegaly with small bilateral pleural effusions and mild interstitial edema. He underwent lower extremity venous Doppler which showed no evidence of DVT in the right lower extremity. He is also on have acute exacerbation of chronic systolic congestive heart failure was started on IV Lasix. He was started on a Cardizem drip and had improvement in his heart rate. He was transitioned back to his home metoprolol with an increased dose. He was seen by cardiology who recommended a 2-D echocardiogram. Patient seen and examined at bedside. He is able to answer yes or no questions. He denies chest pain, shortness of breath, nausea. He indicates that he needs to go to the bathroom. General: non toxic, no distress, appears at stated age Derm: warm, dry Head: atraumatic, normocephalic, symmetric Eyes: EOMI, no lid lag, anicteric sclera Mouth: no lip lesion, mucus membranes moist Cardiovascular: S1S2 irreg, no murmur, positive posterior tibial pulse bilateral, Lungs: Decreased breath sounds bilateral bilateral, no rhonchi, no rales , no accessory muscle use Abdominal: soft, nontender to palpation, no guarding, no appreciable organomegaly Ext: no gross muscle atrophy, no edema, no contractures Neuro: CN II-XI grossly intact, patient with a aphasia, weakness of the left upper and lower extremity with muscle strength 3 out of 5 Psych: Alert, oriented to self and in hospital , appropriate affect Atrial fibrillation with rapid ventricular response, patient opted not to take anticoagulation Acute on chronic systolic congestive heart failure with ejection fraction 35-40% Cardiomyopathy Elevated troponin flat not consistent with acute coronary syndrome -Cardiology recommendations appreciated -Metoprolol increased to 50 twice daily -Continue with Lasix -Daily weights, strict I's and O's -Await echocardiogram Thrombocytopenia -Undetermined etiology -Follow platelet count Chronic anemia -Stable -Follow CBC -Outpatient follow-up Chronic: History CVA with known aphasia Dementia Hypertension COPD Osteoarthritis Anticipate return to rehab in a.m. Objective - Vital Signs Vital signs: Vital Signs Temp 98.2 F 01/09/21 20:00 Pulse 132 H 01/09/21 20:00 Resp 18 01/09/21 20:00 BP 129/98 01/09/21 20:00 Pulse Ox 100 01/09/21 20:00 Intake & Output 01/09/21 01/09/21 01/10/21 06:59 18:59 06:59 Intake Total 32.667 10 Balance 32.667 10 Intake: IV 10 Invasive Line 1 10 Intake, IV Titration 32.667 Amount Diltiazem 125 mg In 32.667 Sodium Chloride 0.9% 100 ml @ 5 MG/HR 5 mls/hr IV .Q24H [facility] Rx#:[id number] Other: Voiding Method Urinal - Labs CBC & Chem 7: 01/09/21 03:20 01/09/21 03:20 Labs: Abnormal Lab Results - Last 24 Hours (Table) 01/08/21 01/09/21 01/09/21 Range/Units 21:40 03:20 03:20 RBC 3.62 L (4.30-5.90) m/uL Hgb 12.4 L (13.0-17.5) gm/dL MCV 111.5 H (80.0-100.0) fL MCHC 30.8 L (31.0-37.0) g/dL Plt Count 104 L (150-450) k/uL Macrocytosis Marked A Chloride 96 L (98-107) mmol/L Carbon Dioxide 38 H (22-30) mmol/L BUN 43 H (9-20) mg/dL Troponin I 0.045 H* (0.000-0.034) ng/mL Total Protein 6.1 L (6.3-8.2) g/dL Albumin 3.3 L (3.5-5.0) g/dL
[2021-01-09] MEDS ORDERED: METOPROLOL TARTRATE 25 MG TAB PO STA (21:46)
[2021-01-09] MEDS: QUEtiapine 25 MG TAB PO SCH (22:41)
[2021-01-10] MEDS: ASPIRIN 81 MG PO SCH ×2 (09:03→21:10)
[2021-01-10] MEDS: FUROSEMIDE 10 MG/ML 4 ML VIAL IV SCH (09:04)
[2021-01-10] MEDS: METOPROLOL SUCCINATE (ER) 50 MG TAB.ER.24H PO SCH (09:04)
[2021-01-10] MEDS: TAMSULOSIN 0.4 MG CAP.ER.24H PO SCH (09:04)
[2021-01-10] MEDS ORDERED: METOPROLOL TARTRATE 25 MG TAB PO STA (09:26)
--- NOTE | 2021-01-10 10:00 | ECHOF ---
Referral Reason:LV function, afib MEASUREMENTS -------- HEIGHT: 182.9 cm WEIGHT: 90.7 kg BP: RVIDd: 3.8 cm (< 3.3) IVSd: 0.9 cm (0.6 - 1.1) LVIDd: 3.9 cm (3.9 - 5.3) LVPWd: 1.4 cm (0.6 - 1.1) IVSs: 1.3 cm LVIDs: 2.8 cm LVPWs: 1.7 cm MV EXCURSION: 23.254 mm (> 18.000) MV EF SLOPE: 71 mm/s (70 - 150) EPSS: 0.4 cm AV maxP.34 mmHg AV meanP.06 mmHg RAP: 10.00 mmHg RVSP: 80.79 mmHg FINDINGS -------- Atrial fibrillation. This was a technically good study. The left ventricular size is normal. Overall left ventricular systolic function is low-normal with, an EF between 50 - 55 %. The right ventricle is moderate to severely enlarged. The right ventricular septal wall is flatten ed in diastole and systole which is consistent with right ventricular volume and pressure overload. The left atrial size is normal. The right atrial size is normal. There is mild aortic valve sclerosis. There is mild aortic regurgitation. There is mild aortic st enosis present. Peak/mean gradient across the Aortic Valve is 23.34mmHg / 10.06mmHg. The mitral valve leaflets are mildly thickened. Mild mitral annular calcification present. Modera [id number] mitral regurgitation is present. Severe tricuspid regurgitation present. There is severe pulmonary hypertension. The right ventric ular systolic pressure, as measured by Doppler, is 80.79mmHg. Trace/mild (physiologic) pulmonic regurgitation. Small Pleural Effusion. CONCLUSIONS -------- 1. The left ventricular size is normal. 2. Overall left ventricular systolic function is low-normal with, an EF between 50 - 55 %. 3. The right ventricle is moderate to severely enlarged. 4. The right ventricular septal wall is flattened in diastole and systole which is consistent with r ight ventricular volume and pressure overload. 5. The left atrial size is normal. 6. The right atrial size is normal. 7. There is mild aortic valve sclerosis. 8. There is mild aortic regurgitation. 9. There is mild aortic stenosis present. 10. Peak/mean gradient across the Aortic Valve is 23.34mmHg / 10.06mmHg. 11. The mitral valve leaflets are mildly thickened. 12. Mild mitral annular calcification present. 13. [id number] mitral regurgitation is present. 14. Severe tricuspid regurgitation present. 15. There is severe pulmonary hypertension. 16. The right ventricular systolic pressure, as measured by Doppler, is 80.79mmHg. 17. Trace/mild (physiologic) pulmonic regurgitation. 18. Small Pleural Effusion. TOOL CLERK: Naa Garza RDCS
--- NOTE | 2021-01-10 11:38 | CT ---
EXAMINATION TYPE: CT chest angio for PE DATE OF EXAM: 01/10/2021 COMPARISON: Chest x-ray 2 days ago. HISTORY: Pulmonary Embolism. History of atrial fibrillation with shortness of breath CT DLP: 282.9 mGycm Automated exposure control for dose reduction was used. CONTRAST: CT Chest for pulmonary embolism performed with with IV Contrast, patient injected with 100 mL of Isov ue 370. FINDINGS: Exam is suboptimal as patient unable to hold breath. LUNGS: There is confirmation of small right greater than left pleural effusions. There is associated right basilar compressive atelectasis. There is bibasilar linear atelectasis and/or scarring. No susp icious nodules or masses. MEDIASTINUM: There is satisfactory enhancement of the pulmonary artery and its branches, there is a s mall eccentric hypodensity or filling defect in the distal left lower lobe pulmonary artery as it beg ins segmental branching axial image 69 corresponding to coronal image 92. Severe left atrial dilata tion. Moderate to severe right atrial dilatation. Overall cardiomegaly. Dense calcification with susp ected surgical change at level of mitral valve. Correlate clinically. Small anterior-inferior pericar dial effusion right aspect axial image 128. No abnormal greater than 1 cm thoracic lymph nodes. Refl ux of contrast into prominent suprahepatic and intrahepatic IVC along with hepatic veins consistent w ith degree of right heart failure. Enlarged right and left pulmonary arteries consistent with underly ing pulmonary artery hypertension. OTHER: Osseous structures are somewhat demineralized. Large bridging anterior and right lateral oste ophytes in the mid to lower thoracic spine with preservation of disc spaces. Correlate for DISH. IMPRESSION: Findings consistent with CHF exacerbation confirmed. Cardiomegaly with small right greate r than left pleural effusions. Severe left atrial dilatation noted. Moderate to severe right atrial d ilatation with degree of right heart failure. Underlying pulmonary artery hypertension. Tiny peripher al pulmonary embolism in the distal left lower lobe artery as it begin segmental branching is felt pr esent. Some limitations from patient unable to hold breath noted. A Yellow level critical message alert has been initiated for Yarely Davila via the [employer] Critical Results System on 01/10/2021 11:35 AM. This message alert has been sent to Yarely Davila via the preferences provided by the clinician for the receipt of Radiology Critical Findings. Message ID [id number].
[2021-01-10] MEDS ORDERED: HEPARIN SODIUM 1,000 UN/ML (10ML VL) IV ONE (11:40)
[2021-01-10] MEDS ORDERED: HEPARIN SODIUM 1,000 UN/ML (10ML VL) IV PRN (11:40)
[2021-01-10] MEDS: HEPARIN SOD,PORK IN 0.45% NACL 25,000 UNIT in 0.45% NACL 1 250ML.BAG IV SCH (12:40)
--- NOTE | 2021-01-10 13:38 | P.PN ---
Subjective Progress Note Date: 01/10/21 ISTORY OF PRESENT ILLNESS: This is a 89-year-old male with a past medical history significant for paroxysmal atrial fibrillation opting not to take anticoagulation, CVA with residual aphasia, congestive heart failure, and hypertension. Patient follows in the office with Dr. Bynum but was last seen in 2019. We have been asked to see the patient in consultation for afib with RVR and CHF. Patient examined at the bedside. Patient has been at [facility] for rehab following a total knee replacement. He was found to be tachycardic and was brought to the hospital for further evaluation. EKG performed on arrival revealed atrial fibrillation with RVR. The patient denies chest pain or pressure. He denies shortness of breath. EKG reveals A. fib with RVR Chest xray possible CHF exacerbation as there is cardiomegaly with multiple tiny bilateral pleural effusions and mild bilateral interstitial edema Laboratory data: WBC 4.5. Hemoglobin 12.4. Platelet count 104. Sodium 139. Potassium 4.3. BUN 3. Creatinine 1.04. Magnesium 1.9. Troponin 0.042. 0.045. ProBNP 4660. TSH 2.940. Current home cardiac medications include aspirin 81 mg twice a day, metoprolol succinate 75 mg daily, Lasix 40 mg daily Most recent echocardiogram obtained in 2019 revealed ejection fraction 35-40%. 01/10/2021 Patient examined this morning at the bedside. Patient remains confused. He underwent CTA revealing findings consistent with CHF exacerbation. Cardiomegaly with small right greater than left pleural effusions. Severe left atrial dilatation noted. Moderate to severe right atrial dilatation with degree of right heart failure. Underlying pulmonary artery hypertension. Tiny peripheral pulmonary embolism in the distal left lower lobe artery as it begins segmental branching is felt present. Echocardiogram completed revealed ejection fraction 5055%, right ventricle moderately to severely enlarged, mild aortic regurgitation, mild aortic stenosis, moderate to severe mitral regurgitation, severe tricuspid regurgitation, and severe pulmonary hypertension. Telemetry reveals afib/flutter with a heart rate in the 130s. PHYSICAL EXAM: VITAL SIGNS: Reviewed. GENERAL: Well-developed in no acute distress. HEENT: Head is normocephalic. Pupils are equal, round. Sclerae anicteric. Mucous membranes of the mouth are moist. Neck supple. No JVD or thyromegaly LUNGS: Respirations even and unlabored. Lungs diminished to auscultation bilaterally. HEART: Tachycardic. Irregular rate and rhythm. S1 and S2 heard. ABDOMEN: Soft. Nondistended. Nontender. EXTREMITIES: Normal range of motion. No clubbing or cyanosis. Peripheral pulses intact. Bilateral lower extremity edema noted NEUROLOGIC: Awake and alert. Oriented x 3. ASSESSMENT: Paroxysmal atrial fibrillation/typical flutter with RVR, patient opted not to take anticoagulation Acute on chronic diastolic heart failure, EF was 35% in 2019, now 50-55% Tiny peripheral PE per CTA History of CVA with subsequent aphasia Recent total knee replacement Cardiomyopathy, ejection fraction 35-40, type unknown Hypertension abnormal troponins, not suggestive of acute coronary syndrome PLAN: Increase metoprolol to 75mg BID Continue telemetry monitoring Patient started on IV heparin per medicine Continue Lasix 40 mg IV daily Daily weights Accurate I&O Monitor kidney function Further recommendations pending patient's course Nurse practitioner note has been reviewed by physician. Signing provider agrees with the documented findings, assessment, and plan of care. Objective - Vital Signs Vital signs: Vital Signs Temp 97.9 F 01/10/21 04:00 Pulse 127 H 01/10/21 08:00 Resp 16 01/10/21 08:00 BP 117/66 01/10/21 08:00 Pulse Ox 96 01/10/21 08:00 Intake & Output 01/09/21 01/10/21 01/10/21 18:59 06:59 18:59 Intake Total 10 Balance 10 Intake: IV 10 Invasive Line 1 10 Other: Voiding Method Diaper Diaper # Voids 3 - Labs CBC & Chem 7: 01/09/21 03:20 01/09/21 03:20 Labs: Abnormal Lab Results - Last 24 Hours (Table) 01/09/21 Range/Units 23:53 Troponin I 0.062 H* (0.000-0.034) ng/mL
--- NOTE | 2021-01-10 20:29 | P.PN ---
Subjective Progress Note Date: 01/10/21 (delayed charting seen at 1030) Principal diagnosis: elevated heart rate Patient is an 89-year-old male for history of atrial fibrillation not on anticoagulation, COPD, CVA with resulting a aphasia who presented from the skilled nursing secondary to tachycardia. In the ER he underwent an extensive evaluation. Initial laboratory analysis showed his known anemia. Troponin was mildly elevated at 0.042 but remained flat. TSH was within normal limits. Chest x-ray demonstrated cardiomegaly with small bilateral pleural effusions and mild interstitial edema. He underwent lower extremity venous Doppler which showed no evidence of DVT in the right lower extremity. He is also on have acute exacerbation of chronic systolic congestive heart failure was started on IV Lasix. He was started on a Cardizem drip and had improvement in his heart rate. He was transitioned back to his home metoprolol with an increased dose. He was seen by cardiology who recommended a 2-D echocardiogram which demonstrated an improved ejection fraction 50-55% with severely dilated right ventricle and right ventricular volume overload with an RVSP of 80.79 and moderate to severe MR with severe TR He continued to be tachycardic and had some hypoxia he underwetn CT chest which showed CHF, left pleural effusion, left atrial dilation, pulm HTN, and tiny pulmonary ebolism Patient seen and examined at bedside. He is able to answer yes or no questions. H he denies chest pain, he does feel his heart racing, he indicates he is short of breath with movement. General: non toxic, no distress, appears at stated age Derm: warm, dry Head: atraumatic, normocephalic, symmetric Eyes: EOMI, no lid lag, anicteric sclera Mouth: no lip lesion, mucus membranes moist Cardiovascular: S1S2 irreg, no murmur, positive posterior tibial pulse bilateral, Lungs: Decreased breath sounds bilateral bilateral, no rhonchi, no rales , no accessory muscle use Abdominal: soft, nontender to palpation, no guarding, no appreciable organomegaly Ext: no gross muscle atrophy, no edema, no contractures Neuro: CN II-XI grossly intact, patient with a aphasia, weakness of the left upper and lower extremity with muscle strength 3 out of 5 Psych: Alert, oriented to self and in hospital , appropriate affect Atrial fibrillation with rapid ventricular response, patient opted not to take anticoagulation Acute on chronic systolic congestive heart failure with ejection fraction 50-55% Cardiomyopathy Elevated troponin flat not consistent with acute coronary syndrome Severe Pulm HTN-likely due to left sided heart disease and valvular disease and not reflective of heart strain for Pulmonary disease Severe TR -Cardiology recommendations appreciated -Metoprolol increased to 50 twice daily on 01/09 status post an additional 25 mg -Continue with Lasix Pulmonary embolism -Heparin drip -Eliquis in a.m. once insurance coverage is checked Thrombocytopenia -Undetermined etiology -Follow platelet count Chronic anemia -Stable -Follow CBC -Outpatient follow-up Chronic: History CVA with known aphasia Dementia Hypertension COPD Osteoarthritis called regarding results of CTA chest showing pulmonary embolism and need for anticoagulation. She is in agreement. Should like to take patient home and not back to rehab. Objective - Vital Signs Vital signs: Vital Signs Temp 97.6 F 01/10/21 19:42 Pulse 101 H 01/10/21 20:09 Resp 18 01/10/21 20:09 BP 119/81 01/10/21 20:09 Pulse Ox 99 01/10/21 20:09 Intake & Output 01/10/21 01/10/21 01/11/21 06:59 18:59 06:59 Intake Total 10 103.145 0 Balance 10 103.145 0 Intake: IV 10 Invasive Line 1 10 Intake, IV Titration 103.145 0 Amount Heparin Sod,Pork in 0.45% 103.145 0 NaCl 25,000 unit In 0.45 % NaCl 1 250ml.bag @ 18 UNITS/KG/HR 16.329 mls/hr IV .[id number] [facility] Rx#: [id number] Other: Voiding Method Diaper Diaper # Voids 3 1 - Labs CBC & Chem 7: 01/09/21 03:20 01/09/21 03:20 Labs: Abnormal Lab Results - Last 24 Hours (Table) 01/09/21 01/10/21 Range/Units 23:53 17:58 APTT >200.0 H* (22.0-30.0) sec Troponin I 0.062 H* (0.000-0.034) ng/mL
[2021-01-10] MEDS: METOPROLOL SUCCINATE (ER) 25 MG TAB.ER.24H PO SCH (21:10)
[2021-01-10] MEDS: QUEtiapine 25 MG TAB PO SCH (21:10)
[2021-01-11 03:35] LABS: HCT 34.9 % (39.0-53.0); HGB 11.2 gm/dL (13.0-17.5); Hypochromasia Slight; MCH 34.9 pg (25.0-35.0); MCHC 32.2 g/dL (31.0-37.0); MCV 108.5 fL (80.0-100.0); Macrocytosis Marked; Mean Platelet Volume 7.6; Platelet Count 134 k/uL (150-450); RBC 3.22 m/uL (4.30-5.90); RDW 14.2 % (11.5-15.5); WBC 4.1 k/uL (3.8-10.6)
[2021-01-11 03:58] LABS: Calcium 8.4 mg/dL (8.4-10.2); Potassium 3.7 mmol/L (3.5-5.1)
[2021-01-11] MEDS: HEPARIN SOD,PORK IN 0.45% NACL 25,000 UNIT in 0.45% NACL 1 250ML.BAG IV SCH ×2 (04:01→21:24)
[2021-01-11 04:28] LABS: Eosinophils # (M) 0.49 k/uL (0-0.7); Lymphocytes # (M) 1.07 k/uL (1.0-4.8); Monocytes # (M) 0.41 k/uL (0-1.0); Neutrophils # (M) 2.13 k/uL (1.3-7.7); Neutrophils % (M) 52 %; Nucleated Red Blood Cells 0 /100 WBC (0-0); Total Cells Counted 100
[2021-01-11 04:29] LABS: Poikilocytosis (M) Present
[2021-01-11] MEDS ORDERED: FUROSEMIDE 40 MG TAB PO SCH (09:00)
[2021-01-11] MEDS: FUROSEMIDE 10 MG/ML 4 ML VIAL IV SCH (10:00)
[2021-01-11] MEDS: METOPROLOL SUCCINATE (ER) 25 MG TAB.ER.24H PO SCH ×2 (10:00→21:41)
[2021-01-11] MEDS: TAMSULOSIN 0.4 MG CAP.ER.24H PO SCH (10:00)
[2021-01-11] MEDS: ASPIRIN 81 MG PO SCH ×2 (10:00→20:48)
--- NOTE | 2021-01-11 12:50 | P.PN ---
Subjective Progress Note Date: 01/11/21 ISTORY OF PRESENT ILLNESS: This is a 89-year-old male with a past medical history significant for paroxysmal atrial fibrillation opting not to take anticoagulation, CVA with residual aphasia, congestive heart failure, and hypertension. Patient follows in the office with Dr. Bynum but was last seen in 2019. We have been asked to see the patient in consultation for afib with RVR and CHF. Patient examined at the bedside. Patient has been at [facility] for rehab following a total knee replacement. He was found to be tachycardic and was brought to the hospital for further evaluation. EKG performed on arrival revealed atrial fibrillation with RVR. The patient denies chest pain or pressure. He denies shortness of breath. EKG reveals A. fib with RVR Chest xray possible CHF exacerbation as there is cardiomegaly with multiple tiny bilateral pleural effusions and mild bilateral interstitial edema Laboratory data: WBC 4.5. Hemoglobin 12.4. Platelet count 104. Sodium 139. Potassium 4.3. BUN 3. Creatinine 1.04. Magnesium 1.9. Troponin 0.042. 0.045. ProBNP 4660. TSH 2.940. Current home cardiac medications include aspirin 81 mg twice a day, metoprolol succinate 75 mg daily, Lasix 40 mg daily Most recent echocardiogram obtained in 2019 revealed ejection fraction 35-40%. 01/10/2021 Patient examined this morning at the bedside. Patient remains confused. He underwent CTA revealing findings consistent with CHF exacerbation. Cardiomegaly with small right greater than left pleural effusions. Severe left atrial dilatation noted. Moderate to severe right atrial dilatation with degree of right heart failure. Underlying pulmonary artery hypertension. Tiny peripheral pulmonary embolism in the distal left lower lobe artery as it begins segmental branching is felt present. Echocardiogram completed revealed ejection fraction 5055%, right ventricle moderately to severely enlarged, mild aortic regurgitation, mild aortic stenosis, moderate to severe mitral regurgitation, severe tricuspid regurgitation, and severe pulmonary hypertension. Telemetry reveals afib/flutter with a heart rate in the 130s. 01/11/2021 Patient examined this morning at the bedside. Patient is currently working with physical therapy. Patient denies chest pain or pressure. He denies shortness of breath. Telemetry reveals atrial flutter with controlled ventricular rates. Patient remains on IV heparin. Patient also remains on IV Lasix. BUN 42. Creatinine 1.07. PHYSICAL EXAM: VITAL SIGNS: Reviewed. GENERAL: Well-developed in no acute distress. HEENT: Head is normocephalic. Pupils are equal, round. Sclerae anicteric. Mucous membranes of the mouth are moist. Neck supple. No JVD or thyromegaly LUNGS: Respirations even and unlabored. Lungs diminished to auscultation bilaterally. HEART: Tachycardic. Irregular rate and rhythm. S1 and S2 heard. ABDOMEN: Soft. Nondistended. Nontender. EXTREMITIES: Normal range of motion. No clubbing or cyanosis. Peripheral pulses intact. Bilateral lower extremity edema noted NEUROLOGIC: Awake and alert. Oriented x 3. ASSESSMENT: Paroxysmal atrial fibrillation/typical flutter with RVR, patient opted not to take anticoagulation Acute on chronic diastolic heart failure, EF was 35% in 2019, now 50-55% Tiny peripheral PE per CTA History of CVA with subsequent aphasia Recent total knee replacement Cardiomyopathy, ejection fraction 35-40, type unknown Hypertension abnormal troponins, not suggestive of acute coronary syndrome PLAN: Current cardiac medications Continue telemetry monitoring Continue Lasix 40 mg IV daily. Possible transition to oral tomorrow Daily weights Accurate I&O Monitor kidney function Continue IV heparin Further recommendations pending value aeration by Dr. Sanchez today Nurse practitioner note has been reviewed by physician. Signing provider agrees with the documented findings, assessment, and plan of care. Objective - Vital Signs Vital signs: Vital Signs Temp 98.7 F 01/11/21 11:59 Pulse 99 01/11/21 11:59 Resp 20 01/11/21 11:59 BP 108/76 01/11/21 11:59 Pulse Ox 95 01/11/21 11:59 Intake & Output 01/10/21 01/11/21 01/11/21 18:59 06:59 18:59 Intake Total 103.145 167.483 163.358 Output Total 300 Balance 103.145 167.483 -136.642 Weight 75 kg Intake: Intake, IV Titration 103.145 117.483 45.358 Amount Heparin Sod,Pork in 0.45% 103.145 117.483 45.358 NaCl 25,000 unit In 0.45 % NaCl 1 250ml.bag @ 18 UNITS/KG/HR 16.329 mls/hr IV .[id number] [facility] Rx#: [id number] Oral 50 118 Output: Urine 300 Other: Voiding Method Diaper Diaper # Voids 1 2 - Labs CBC & Chem 7: 01/11/21 03:09 01/11/21 03:09 Labs: Abnormal Lab Results - Last 24 Hours (Table) 01/10/21 01/10/21 01/11/21 Range/Units 17:58 21:13 03:09 RBC (4.30-5.90) m/uL Hgb (13.0-17.5) gm/dL Hct (39.0-53.0) % MCV (80.0-100.0) fL Plt Count (150-450) k/uL Macrocytosis APTT >200.0 H* >200.0 H* (22.0-30.0) sec Chloride 93 L (98-107) mmol/L Carbon Dioxide 41 H* (22-30) mmol/L BUN 42 H (9-20) mg/dL 01/11/21 01/11/21 01/11/21 Range/Units 03:09 03:09 07:57 RBC 3.22 L (4.30-5.90) m/uL Hgb 11.2 L (13.0-17.5) gm/dL Hct 34.9 L (39.0-53.0) % MCV 108.5 H (80.0-100.0) fL Plt Count 134 L (150-450) k/uL Macrocytosis Marked A APTT >200.0 H* 194.9 H* (22.0-30.0) sec Chloride (98-107) mmol/L Carbon Dioxide (22-30) mmol/L BUN (9-20) mg/dL
--- NOTE | 2021-01-11 15:20 | CDI ---
Documentation Clarification Form Date: 01/11/2021 02:28:42 PM From: Crista Nur RN CCDS Admit Date: 01/08/2021 05:43:00 PM Patient Name: Kayode Gaines Visit Number: [id number] Discharge Date: ATTENTION: The Clinical Documentation Specialists (CDI) and [facility] Coding Staff appreciate your assistance in clarifying documentation. Please respond to the clarification below the line at the bottom and electronically sign. The CDI & [facility] Coding staff will review the response and follow-up if needed. Please note: Queries are made part of the Legal Health Record. If you have any questions, please contact the author of this message via ITS. Dr. Yarely Davila Conflicting documentation has been found in the medical record. As attending physician, please provide clarification. Acute on chronic systolic heart failure, medicine progress notes 01/09 & 01/10. Acute on chronic diastolic heart failure, Cardiology progress notes, 01/10 & 01/11. History/Risk Factors: 89-year-old male presents to the ED with tachycardia from ECF. Medical History: Atrial fib and Systolic heart failure. H&P, 01/08. Clinical Indicators: CXR 01/08 Cardiomegaly with small bilateral pleural effusions and mild interstitial edema. ECHO 01/09 Ventricular systolic function is low normal with, an EF between 50- 55%. Right ventricle moderately to severely enlarged. Mild aortic regurgitation, mild aortic stenosis, moderate to severe mitral regurgitation, severe tricuspid regurgitation, and severe pulmonary hypertension. Cardiology progress note 01/10 Acute on chronic diastolic heart failure, EF was 35% in 2019 now 50-55%. Treatment: 01/08 Lasix 40mg IV x 1, 01/09 -01/10 Lasix IV Daily, 01/11 to current Lasix IV Daily. 01/09 to 01/10 Toprol XL 50mg po bid, 01/10 to current Toprol Xl 75mg po bid, 01/09 Lopressor 25mg po x 1, 01/10 Lopressor 25mg po x 1 Please clarify which diagnosis is most appropriate: [ X ] Acute on chronic systolic heart failure [ ] Acute on chronic diastolic heart failure. [ ] Other (please specify) [ ] Unable to determine (Template Last Revised: May 2020) MTDD
--- NOTE | 2021-01-11 20:35 | P.PN ---
Subjective Progress Note Date: 01/11/21 (delayed charting seen at 1630) Principal diagnosis: elevated heart rate Patient is an 89-year-old male for history of atrial fibrillation not on anticoagulation, COPD, CVA with resulting a aphasia who presented from the residential secondary to tachycardia. In the ER he underwent an extensive evaluation. Initial laboratory analysis showed his known anemia. Troponin was mildly elevated at 0.042 but remained flat. TSH was within normal limits. Chest x-ray demonstrated cardiomegaly with small bilateral pleural effusions and mild interstitial edema. He underwent lower extremity venous Doppler which showed no evidence of DVT in the right lower extremity. He is also on have acute exacerbation of chronic systolic congestive heart failure was started on IV Lasix. He was started on a Cardizem drip and had improvement in his heart rate. He was transitioned back to his home metoprolol with an increased dose. He was seen by cardiology who recommended a 2-D echocardiogram which demonstrated an improved ejection fraction 50-55% with severely dilated right ventricle and right ventricular volume overload with an RVSP of 80.79 and moderate to severe MR with severe TR He continued to be tachycardic and had some hypoxia he had CT chest which showed CHF, left pleural effusion, left atrial dilation, pulm HTN, and tiny pulmonary embolism Patient seen and examined at bedside. He is able to answer yes or no questions. Feeling better, no complaints, no shortness of breath, no chest pain at bedside and all questions answered. General: non toxic, no distress, appears at stated age Derm: warm, dry Head: atraumatic, normocephalic, symmetric Eyes: EOMI, no lid lag, anicteric sclera Mouth: no lip lesion, mucus membranes moist Cardiovascular: S1S2 irreg, no murmur, positive posterior tibial pulse bilateral, Lungs: Decreased breath sounds bilateral bilateral, no rhonchi, no rales , no accessory muscle use Abdominal: soft, nontender to palpation, no guarding, no appreciable organomegaly Ext: no gross muscle atrophy, no edema, no contractures Neuro: CN II-XI grossly intact, patient with a aphasia, weakness of the left upper and lower extremity with muscle strength 3 out of 5 Psych: Alert, oriented to self and in hospital , appropriate affect Atrial fibrillation with rapid ventricular response Acute on chronic systolic congestive heart failure with ejection fraction 50- 55%, prior 35% Cardiomyopathy Elevated troponin flat not consistent with acute coronary syndrome Severe Pulm HTN-likely due to left sided heart disease and valvular disease and not reflective of heart strain for Pulmonary disease Severe TR -Cardiology recommendations appreciated -Metoprolol increased to 75 mg BID -Continue with Lasix - strict I and O dialy weight - repeat CXR in AM Pulmonary embolism -Eliquis Thrombocytopenia -Undetermined etiology -Follow platelet count Chronic anemia -Stable -Follow CBC -Outpatient follow-up Chronic: History CVA with known aphasia Dementia Hypertension COPD Osteoarthritis Anticipate home in AM Objective - Vital Signs Vital signs: Vital Signs Temp 98.6 F 01/11/21 20:00 Pulse 95 01/11/21 20:00 Resp 18 01/11/21 20:00 BP 95/61 01/11/21 20:00 Pulse Ox 97 01/11/21 20:00 Intake & Output 01/11/21 01/11/21 01/12/21 06:59 18:59 06:59 Intake Total 167.483 521.358 Output Total 300 Balance 167.483 221.358 Weight 75 kg Intake: Intake, IV Titration 117.483 45.358 Amount Heparin Sod,Pork in 0.45% 117.483 45.358 NaCl 25,000 unit In 0.45 % NaCl 1 250ml.bag @ 18 UNITS/KG/HR 16.329 mls/hr IV .[id number] [facility] Rx#: [id number] Oral 50 476 Output: Urine 300 Other: Voiding Method Diaper # Voids 2 - Labs CBC & Chem 7: 01/11/21 03:09 01/11/21 03:09 Labs: Abnormal Lab Results - Last 24 Hours (Table) 01/10/21 01/11/21 01/11/21 Range/Units 21:13 03:09 03:09 RBC 3.22 L (4.30-5.90) m/uL Hgb 11.2 L (13.0-17.5) gm/dL Hct 34.9 L (39.0-53.0) % MCV 108.5 H (80.0-100.0) fL Plt Count 134 L (150-450) k/uL Macrocytosis Marked A APTT >200.0 H* (22.0-30.0) sec Chloride 93 L (98-107) mmol/L Carbon Dioxide 41 H* (22-30) mmol/L BUN 42 H (9-20) mg/dL 01/11/21 01/11/21 01/11/21 Range/Units 03:09 07:57 18:21 RBC (4.30-5.90) m/uL Hgb (13.0-17.5) gm/dL Hct (39.0-53.0) % MCV (80.0-100.0) fL Plt Count (150-450) k/uL Macrocytosis APTT >200.0 H* 194.9 H* 51.2 H (22.0-30.0) sec Chloride (98-107) mmol/L Carbon Dioxide (22-30) mmol/L BUN (9-20) mg/dL
[2021-01-11] MEDS: APIXABAN 5 MG TAB PO SCH (20:48)
[2021-01-11] MEDS: QUEtiapine 25 MG TAB PO SCH (20:49)
--- NOTE | 2021-01-12 06:40 | XR ---
EXAMINATION TYPE: XR chest 1V portable DATE OF EXAM: 01/12/2021 COMPARISON: 01/08/2021 HISTORY: CHF TECHNIQUE: Single frontal view of the chest is obtained. FINDINGS: There has been no interval change in the small bilateral pleural effusions. Heart size is prominent but the pulmonary vasculature is not grossly congested. There is no pneumothorax. The osseous structures are intact IMPRESSION: No interval change. There are small bilateral pleural effusions.
[2021-01-12] MEDS: FUROSEMIDE 10 MG/ML 4 ML VIAL IV SCH (08:16)
[2021-01-12] MEDS: METOPROLOL SUCCINATE (ER) 25 MG TAB.ER.24H PO SCH (08:16)
[2021-01-12] MEDS: ASPIRIN 81 MG PO SCH (08:16)
[2021-01-12] MEDS: APIXABAN 5 MG TAB PO SCH (08:16)
[2021-01-12] MEDS: TAMSULOSIN 0.4 MG CAP.ER.24H PO SCH (08:17)
[2021-01-12 08:23] VITALS: BP 106/68; PULSE 79; RESP 16; TEMP 98.1
[2021-01-12 09:33] LABS: HCT 38.9 % (39.0-53.0); HGB 12.5 gm/dL (13.0-17.5); Hypochromasia Slight; MCH 35.2 pg (25.0-35.0); MCHC 32.1 g/dL (31.0-37.0); MCV 109.4 fL (80.0-100.0); Macrocytosis Marked; Mean Platelet Volume 7.9; Platelet Count 142 k/uL (150-450); RBC 3.56 m/uL (4.30-5.90); WBC 4.4 k/uL (3.8-10.6)
[2021-01-12 09:43] LABS: Calcium 8.6 mg/dL (8.4-10.2); Magnesium 2.1 mg/dL (1.6-2.3); Potassium 4.2 mmol/L (3.5-5.1)
--- NOTE | 2021-01-12 16:27 | P.DS ---
Providers Date of admission: 01/08/21 17:43 Expected date of discharge: 01/12/21 Attending physician: Raheem Swain Consults: 01/08/21 17:43 Consult Physician Routine Consulting Provider: Billy Franklin Consult Reason/Comments: A-fib rvr, chf Do you want consulting provider notified?: Yes Primary care physician: Ness Thomason MD Hospital Course: Discharge Diagnosis: Atrial fibrillation with rapid ventricular response Acute on chronic systolic congestive heart failure with ejection fraction 50- 55%, prior 35% Cardiomyopathy Elevated troponin flat not consistent with acute coronary syndrome Severe Pulm HTN-likely due to left sided heart disease and valvular disease and not reflective of heart strain from Pulmonary embolsim Severe TR Pulmonary embolism Thrombocytopenia Chronic anemia History CVA with known aphasia Dementia Hypertension COPD Osteoarthritis Hospital Course: Patient is an 89-year-old male for history of atrial fibrillation not on anticoagulation, COPD, CVA with resulting a aphasia who presented from the [facility] secondary to tachycardia. In the ER he underwent an extensive ev aluation. Initial laboratory analysis showed his known anemia. Troponin was mildly elevated at 0.042 but remained flat. TSH was within normal limits. Chest x-ray demonstrated cardiomegaly with small bilateral pleural effusions and mild interstitial edema. He underwent lower extremity venous Doppler which showed no evidence of DVT in the right lower extremity. He is also on have acute exacerbation of chronic systolic congestive heart failure was started on IV Lasix. He was started on a Cardizem drip and had improvement in his heart rate. He was transitioned back to his home metoprolol with an increased dose. He was seen by cardiology who recommended a 2-D echocardiogram which demonstrated an improved ejection fraction 50-55% with severely dilated right ventricle and right ventricular volume overload with an RVSP of 80.79 and moderate to severe MR with severe TR He continued to be tachycardic and had some hypoxia he had CT chest which showed CHF, left pleural effusion, left atrial dilation, pulm HTN, and tiny pulmonary embolisms. He was started onheparin gtt and his metoprololwas adjusted. His HR was controlled, breathing was returned to normal, and breath sounds were impro darlin.He was determined stable for discharge home. Follow-up: Dr. Mccormack in 2 weeks, Dr. Thomason in 2-3 weeks, Randee started pack, increased metoprolol, lasix 40 mg once daily Patient seen and examined at bedside. No chest pain, SOB, nausea or vomiting, no diarrhea. at bedside and all questions answered. Vital signs reviewed and stable. General: non toxic, no distress, appears at stated age Derm: warm, dry Head: atraumatic, normocephalic, symmetric Eyes: EOMI, no lid lag, anicteric sclera Mouth: no lip lesion, mucus membranes moist Cardiovascular: S1S2 irreg, no murmur, positive posterior tibial pulse bilateral, Lungs: CTA bilateral, no rhonchi, no rales , no accessory muscle use Abdominal: soft, nontender to palpation, no guarding, no appreciable organomegaly Ext: no gross muscle atrophy, no edema, no contractures Neuro: CN II-XI grossly intact, no focal neuro deficits Psych: Alert, oriented, appropriate affect A total of 37 minutes of time were spent preparing this complex discharge summary . Patient Condition at Discharge: Stable Plan - Discharge Summary Discharge Rx Participant: No New Discharge Prescriptions: New Apixaban [Eliquis Starter Pack (for VTE)] 5 - 10 mg PO DIRECTED 30 Days #1 each Metoprolol Succinate (ER) [Toprol XL] 100 mg PO HS #30 tab Metoprolol Succinate (ER) [Toprol XL] 50 mg PO DAILY #30 tab Continue Levalbuterol Nebulized [Xopenex Nebulized] 1.25 mg INHALATION RT-TID PRN PRN Reason: Shortness Of Breath Budesonide [Pulmicort] 0.5 mg INHALATION RT-BID PRN PRN Reason: Shortness Of Breath Acetaminophen Tab [Tylenol] 650 mg PO Q4H PRN #30 tablet PRN Reason: Pain Aspirin 81 mg PO BID@0800,1700 Magnesium Hydroxide [Milk of Magnesia Concentrate] 7,200 mg PO DAILY PRN PRN Reason: Constipation Furosemide [Lasix] 40 mg PO DAILY@0800 #30 tab bisacodyL [Dulcolax] 10 mg RECTAL DAILY PRN PRN Reason: Constipation Tamsulosin [Flomax] 0.4 mg PO DAILY@0800 Discontinued Doxycycline Hyclate 100 mg PO BID@0800,1700 Aspirin EC [Ecotrin] 325 mg PO DIRECTED Na Phos,M-B/Na Phos,Di-Ba [Fleet Adult] 133 ml RECTAL DAILY PRN PRN Reason: Constipation Metoprolol Succinate [Toprol XL] 50 mg PO DAILY@0800 Metoprolol Succinate (ER) [Toprol XL] 25 mg PO DAILY@0800 Discharge Medication List Levalbuterol Nebulized [Xopenex Nebulized] 1.25 mg INHALATION RT-TID PRN 10/04/18 [History] Budesonide [Pulmicort] 0.5 mg INHALATION RT-BID PRN 02/17/19 [History] Acetaminophen Tab [Tylenol] 650 mg PO Q4H PRN #30 tablet 02/18/19 [Rx] Aspirin 81 mg PO BID@0800,1700 01/08/21 [History] Magnesium Hydroxide [Milk of Magnesia Concentrate] 7,200 mg PO DAILY PRN 01/08/21 [History] Tamsulosin [Flomax] 0.4 mg PO DAILY@0800 01/08/21 [History] bisacodyL [Dulcolax] 10 mg RECTAL DAILY PRN 01/08/21 [History] Apixaban [Eliquis Starter Pack (for VTE)] 5 - 10 mg PO DIRECTED 30 Days #1 each 01/10/21 [Rx] Furosemide [Lasix] 40 mg PO DAILY@0800 #30 tab 01/12/21 [Rx] Metoprolol Succinate (ER) [Toprol XL] 50 mg PO DAILY #30 tab 01/12/21 [Rx] Metoprolol Succinate (ER) [Toprol XL] 100 mg PO HS #30 tab 01/12/21 [Rx] Follow up Appointment(s)/Referral(s): [facility], [NON-STAFF] - Titus Sanchez DO [STAFF PHYSICIAN] - 2 Weeks Ness Thomason MD [Primary Care Provider] - 1-2 days Patient Instructions/Handouts: Heart Failure (DC), A-fib (Atrial Fibrillation) (DC) Activity/Diet/Wound Care/Special Instructions: Activity: as tolerated with walker Diet: heart healthy Special Instructions: Eliquis - filled at [facility] with free day coupon Patient needs a transport chair at discharge to assist with ADLs which cannot be done with a cane or walker because of weakness from CVA. Patient has someone at home that will be able to propel him Thank you for allowing us to care for you. We wish you well on your health journey and are so happy you are going home instead of back to rehab what an accomplishment! Discharge Disposition: HOME WITH HOME HEALTH SERVICES
== END 2021-01-12 15:53 | disposition home health service (06) | DRG 291 ==
LOC: EC 15:17 → 3SCARD 17:43
PROVIDERS: ADMIT Internal Medicine; ATTEND Internal Medicine
DX: I11.0 Hypertensive heart disease with heart failure (principal); I26.99 Other pulmonary embolism without acute cor pulmonale; I48.92 Unspecified atrial flutter; I48.0 Paroxysmal atrial fibrillation; I50.23 Acute on chronic systolic (congestive) heart failure; R00.0 Tachycardia, unspecified; D64.9 Anemia, unspecified; D69.6 Thrombocytopenia, unspecified; F03.90 Unspecified dementia, unspecified severity, without behavioral disturbance, psychotic disturbance, mood disturbance, and anxiety; I07.1 Rheumatic tricuspid insufficiency; I27.20 Pulmonary hypertension, unspecified; I42.9 Cardiomyopathy, unspecified; I69.320 Aphasia following cerebral infarction; J43.9 Emphysema, unspecified; M19.90 Unspecified osteoarthritis, unspecified site; R09.02 Hypoxemia; R29.6 Repeated falls; Z20.822 Contact with and (suspected) exposure to COVID-19; Z79.82 Long term (current) use of aspirin; Z79.899 Other long term (current) drug therapy; Z80.1 Family history of malignant neoplasm of trachea, bronchus and lung; Z80.3 Family history of malignant neoplasm of breast; Z82.49 Family history of ischemic heart disease and other diseases of the circulatory system; Z87.891 Personal history of nicotine dependence; Z96.651 Presence of right artificial knee joint; R77.8 Other specified abnormalities of plasma proteins
CPT/HCPCS: 36415; 71045; 71275; 80048; 80053; 83735; 83880; 84443; 84484; 85025; 85027; 85610; 85730; 87635; 93005; 93306; 94760; 96374; 99291

== ENCOUNTER 2021-01-17 15:22 | Inpatient (IN) | payer MEDICARE ==
[2021-01-17] MEDS ORDERED: IPRATROPIUM-ALBUTEROL 3 ML NEB INHALATION STA (15:29)
[2021-01-17] MEDS ORDERED: SODIUM CHLORIDE 0.9% 500 ML 500 ML IV ONE (15:46)
[2021-01-17] MEDS: SODIUM CHLORIDE 0.9% 1,000 ML IV SCH (15:53)
[2021-01-17 16:05] LABS: Albumin 3.1 g/dL (3.5-5.0); Calcium 8.6 mg/dL (8.4-10.2); Magnesium 2.1 mg/dL (1.6-2.3); Total Bilirubin 2.8 mg/dL (0.2-1.3); Total Protein 5.7 g/dL (6.3-8.2)
[2021-01-17 16:09] LABS: MCH 33.4 pg (25.0-35.0); MCHC 30.8 g/dL (31.0-37.0); MCV 108.2 fL (80.0-100.0); Macrocytosis Marked; Mean Platelet Volume 8.8; Platelet Count 157 k/uL (150-450); RDW 14.6 % (11.5-15.5)
--- NOTE | 2021-01-17 16:09 | XR ---
EXAMINATION TYPE: XR chest 1V portable DATE OF EXAM: 01/17/2021 COMPARISON: Chest x-ray 5 days ago. CTA chest 1 week ago. HISTORY: Shortness of breath TECHNIQUE: Single AP portable frontal upright view of the chest is obtained. FINDINGS: There is persistent cardiomegaly with small to tiny bilateral pleural effusions and associ ated bibasilar atelectasis and/or infiltrate. Mild bilateral interstitial edema is present. The oss eous structures remain demineralized. High riding humeral head suggests chronic rotator cuff tears. IMPRESSION: Chronic changes and cardiomegaly with small to tiny bilateral pleural effusions and mild interstitial edema consistent with persistent CHF exacerbation. Correlate clinically.
[2021-01-17 16:13] LABS: INR 1.8 (<1.2); Partial Thromboplastin Time 27.2 sec (22.0-30.0); Prothrombin Time 17.8 sec (9.0-12.0)
--- NOTE | 2021-01-17 16:15 | ED ---
SOB HPI - General Chief Complaint: Shortness of Breath Stated Complaint: Hypoxic Time Seen by Provider: 01/17/21 15:25 Source: patient, EMS Mode of arrival: EMS - History of Present Illness Initial Comments: 10-year-old male with past medical history of A. fib, COPD on 3 L home O2, CVA, dementia with excessive aphasia who presents to the emergency department with altered mental status. Patient was found on his couch unresponsive today by his . Home care nurse came to the house and called an ambulance. He was found to be hypotensive and hypoxic. He was placed on a nonrebreather and did become more arousable. He was given a 400 mL bolus of normal saline en route to the hospital. arrives and provides further history. States the patient had a knee replacement done at the end of December. He did go to rehab and was sent to the hospital from rehab for an elevated heart rate. Was diagnosed with new- onset A. fib. Patient also found to have a blood clot in his lung and was started on Eliquis. Patient is subsequently now at home. He went to bed at 8 PM last night because he wasn't feeling well. When tried to arouse him earlier today he would not wake up. She noted that he had taken his oxygen off overnight. Home care nurse was scheduled to come see the patient today, she found him to have unstable vital signs and therefore EMS was called. Patient has visible signs of respiratory distress. Patient has no complaints at this time. Remainder HPI is limited - Related Data Home Medications Medication Instructions Recorded Confirmed Levalbuterol Nebulized [Xopenex 1.25 mg INHALATION RT-TID PRN 10/04/18 01/17/21 Nebulized] Budesonide [Pulmicort] 0.5 mg INHALATION RT-BID PRN 02/17/19 01/17/21 Tamsulosin [Flomax] 0.4 mg PO DAILY 01/08/21 01/17/21 QUEtiapine [SEROquel] 25 mg PO HS 01/17/21 01/17/21 Previous Rx's Medication Instructions Recorded Acetaminophen Tab [Tylenol] 650 mg PO Q4H PRN #30 tablet 02/18/19 Apixaban [Eliquis] 2.5 mg PO BID #60 tablet 01/21/21 Metoprolol Tartrate [Lopressor] 25 mg PO BID #60 tab 01/21/21 Allergies Allergy/AdvReac Type Severity Reaction Status Date / Time cefuroxime [From Ceftin] Allergy Rash/Hives Verified 01/17/21 17:07 simvastatin AdvReac Severe Kidney Verified 01/17/21 17:07 Issues Review of Systems ROS Statement: Those systems with pertinent positive or pertinent negative responses have been documented in the HPI. ROS Other: All systems not noted in ROS Statement are negative. Past Medical History Past Medical History: Atrial Fibrillation, COPD, CVA/TIA, Memory Impairment, Osteoarthritis (OA) Additional Past Medical History / Comment(s): broncitis, emphysema History of Any Multi-Drug Resistant Organisms: None Reported Past Surgical History: Appendectomy, Hernia Repair, Orthopedic Surgery Additional Past Surgical History / Comment(s): Fractured right ankle and left arm. hernia repair with mesh. Cateract surgery 10/2020 Past Anesthesia/Blood Transfusion Reactions: No Reported Reaction Past Psychological History: No Psychological Hx Reported Smoking Status: Former smoker Past Alcohol Use History: Daily Past Drug Use History: None Reported - Past Family History Father Family Medical History: AFIB, Cancer Additional Family Medical History / Comment(s): Cancer Mother Family Medical History: AFIB, Cancer Additional Family Medical History / Comment(s): Breast CA Sister(s) Family Medical History: AFIB Additional Family Medical History / Comment(s): 2 sisters with breast CA Brother(s) Family Medical History: AFIB, Cancer, Myocardial Infarction (PR) Additional Family Medical History / Comment(s): Lung CA Course Vital Signs 01/17/21 01/17/21 01/17/21 15:24 15:30 15:40 Temperature 98 F Pulse Rate 71 86 70 Respiratory 14 16 Rate Blood Pressure 68/32 64/46 O2 Sat by Pulse 95 85 L Oximetry 01/17/21 01/17/21 01/17/21 15:57 17:59 20:10 Temperature Pulse Rate 120 H 122 H 117 H Respiratory 18 26 H Rate Blood Pressure 92/65 71/57 O2 Sat by Pulse 85 L 92 L Oximetry 01/17/21 01/17/21 01/17/21 21:18 22:00 23:00 Temperature Pulse Rate 120 H 120 H 120 H Respiratory 20 26 H 20 Rate Blood Pressure 83/66 86/64 82/64 O2 Sat by Pulse 87 L 85 L 86 L Oximetry 01/18/21 01/18/21 01/18/21 00:00 01:00 01:45 Temperature Pulse Rate 111 H 120 H 117 H Respiratory 26 H 26 H 26 H Rate Blood Pressure 94/56 96/54 O2 Sat by Pulse 87 L 93 L 95 Oximetry Medical Decision Making - Medical Decision Making Upon arrival patient was placed into trauma bay 4. He does remain on a nonrebreather and oxygenation is noted to be 95%. Blood pressure low at 68/32. He was given additional 500 mL bolus. Laboratory studies are conducted with multiple abnormalities. White blood cell count 19,000. D-dimer 4. Patient in renal failure with a creatinine of 2.3. Lactic acid 5.4. Troponin 3. AST and ALT elevated. I did discuss the lab abnormalities with the patient's . Patient's does not want any life-saving measures for the patient. Refusing central line placements for vasopressors. Refusing intubation and CPR. Chest x-ray demonstrates chronic changes and cardio medically with multiple tiny bilateral pleural effusions. CT of the patient's abdomen and pelvis is done without contrast which demonstrates hyperdense and not well visualized margins o f the gallbladder. GB ultrasound ordered and pending. Bilateral lower lobe multifocal consolidative infiltrates. Patient given a dose of antibiotics. Heparin ordered due to elevated trop. Informed with the poor prognosis. Spoke with Dr. Danielle who agreed to admit the patient. He is requesting that ICU be made aware of the patient's presence. Dr. Cleary is in the emergency department and made aware of the patient's condition. States the patient may go to telemetry floor as he is DNR/DNI/no pressor status. Patient is awaiting a bed with an extremely guarded prognosis - Lab Data Result diagrams: 01/19/21 05:12 01/19/21 05:12 Lab Results 01/17/21 01/17/21 01/17/21 Range/Units 15:49 15:49 15:49 WBC 19.0 H (3.8-10.6) k/uL RBC 3.60 L (4.30-5.90) m/uL Hgb 12.0 L (13.0-17.5) gm/dL Hct 39.0 (39.0-53.0) % MCV 108.2 H (80.0-100.0) fL MCH 33.4 (25.0-35.0) pg MCHC 30.8 L (31.0-37.0) g/dL RDW 14.6 (11.5-15.5) % Plt Count 157 (150-450) k/uL MPV 8.8 Neutrophils % (Manual) 79 % Band Neuts % (Manual) 8 % Lymphocytes % (Manual) 5 % Monocytes % (Manual) 7 % Metamyelocytes % 2 % Myelocytes % 1 % Neutrophils # (Manual) 16.50 H (1.3-7.7) k/uL Lymphocytes # (Manual) 0.95 L (1.0-4.8) k/uL Monocytes # (Manual) 1.33 H (0-1.0) k/uL Metamyelocytes # (Man) 0.38 H (0) k/uL Myelocytes # (Manual) 0.19 H (0) k/uL Nucleated RBCs 0 (0-0) /100 WBC Manual Slide Review Performed Macrocytosis Marked A PT 17.8 H (9.0-12.0) sec INR 1.8 H (<1.2) APTT 27.2 (22.0-30.0) sec D-Dimer 4.06 H (<0.60) mg/L FEU Sodium 139 (137-145) mmol/L Potassium 5.0 (3.5-5.1) mmol/L Chloride 98 (98-107) mmol/L Carbon Dioxide 34 H (22-30) mmol/L Anion Gap 7 mmol/L BUN 64 H (9-20) mg/dL Creatinine 2.30 H (0.66-1.25) mg/dL Est GFR (CKD-EPI)AfAm 28 (>60 ml/min/1.73 sqM) Est GFR (CKD-EPI)NonAf 25 (>60 ml/min/1.73 sqM) Glucose 95 (74-99) mg/dL Lactic Ac Sepsis Rflx Plasma Lactic Acid Angelo (0.7-2.0) mmol/L Calcium 8.6 (8.4-10.2) mg/dL Magnesium 2.1 (1.6-2.3) mg/dL Total Bilirubin 2.8 H (0.2-1.3) mg/dL AST 687 H (17-59) U/L ALT 485 H (4-49) U/L Alkaline Phosphatase 79 (38-126) U/L Troponin I (0.000-0.034) ng/mL NT-Pro-B Natriuret Pep pg/mL Total Protein 5.7 L (6.3-8.2) g/dL Albumin 3.1 L (3.5-5.0) g/dL 01/17/21 01/17/21 01/17/21 Range/Units 15:49 15:49 15:49 WBC (3.8-10.6) k/uL RBC (4.30-5.90) m/uL Hgb (13.0-17.5) gm/dL Hct (39.0-53.0) % MCV (80.0-100.0) fL MCH (25.0-35.0) pg MCHC (31.0-37.0) g/dL RDW (11.5-15.5) % Plt Count (150-450) k/uL MPV Neutrophils % (Manual) % Band Neuts % (Manual) % Lymphocytes % (Manual) % Monocytes % (Manual) % Metamyelocytes % % Myelocytes % % Neutrophils # (Manual) (1.3-7.7) k/uL Lymphocytes # (Manual) (1.0-4.8) k/uL Monocytes # (Manual) (0-1.0) k/uL Metamyelocytes # (Man) (0) k/uL Myelocytes # (Manual) (0) k/uL Nucleated RBCs (0-0) /100 WBC Manual Slide Review Macrocytosis PT (9.0-12.0) sec INR (<1.2) APTT (22.0-30.0) sec D-Dimer (<0.60) mg/L FEU Sodium (137-145) mmol/L Potassium (3.5-5.1) mmol/L Chloride (98-107) mmol/L Carbon Dioxide (22-30) mmol/L Anion Gap mmol/L BUN (9-20) mg/dL Creatinine (0.66-1.25) mg/dL Est GFR (CKD-EPI)AfAm (>60 ml/min/1.73 sqM) Est GFR (CKD-EPI)NonAf (>60 ml/min/1.73 sqM) Glucose (74-99) mg/dL Lactic Ac Sepsis Rflx Plasma Lactic Acid Angelo 5.4 H* (0.7-2.0) mmol/L Calcium (8.4-10.2) mg/dL Magnesium (1.6-2.3) mg/dL Total Bilirubin (0.2-1.3) mg/dL AST (17-59) U/L ALT (4-49) U/L Alkaline Phosphatase (38-126) U/L Troponin I 3.000 H* (0.000-0.034) ng/mL NT-Pro-B Natriuret Pep 70679 pg/mL Total Protein (6.3-8.2) g/dL Albumin (3.5-5.0) g/dL 01/17/21 Range/Units 16:18 WBC (3.8-10.6) k/uL RBC (4.30-5.90) m/uL Hgb (13.0-17.5) gm/dL Hct (39.0-53.0) % MCV (80.0-100.0) fL MCH (25.0-35.0) pg MCHC (31.0-37.0) g/dL RDW (11.5-15.5) % Plt Count (150-450) k/uL MPV Neutrophils % (Manual) % Band Neuts % (Manual) % Lymphocytes % (Manual) % Monocytes % (Manual) % Metamyelocytes % % Myelocytes % % Neutrophils # (Manual) (1.3-7.7) k/uL Lymphocytes # (Manual) (1.0-4.8) k/uL Monocytes # (Manual) (0-1.0) k/uL Metamyelocytes # (Man) (0) k/uL Myelocytes # (Manual) (0) k/uL Nucleated RBCs (0-0) /100 WBC Manual Slide Review Macrocytosis PT (9.0-12.0) sec INR (<1.2) APTT (22.0-30.0) sec D-Dimer (<0.60) mg/L FEU Sodium (137-145) mmol/L Potassium (3.5-5.1) mmol/L Chloride (98-107) mmol/L Carbon Dioxide (22-30) mmol/L Anion Gap mmol/L BUN (9-20) mg/dL Creatinine (0.66-1.25) mg/dL Est GFR (CKD-EPI)AfAm (>60 ml/min/1.73 sqM) Est GFR (CKD-EPI)NonAf (>60 ml/min/1.73 sqM) Glucose (74-99) mg/dL Lactic Ac Sepsis Rflx Y Plasma Lactic Acid Angelo (0.7-2.0) mmol/L Calcium (8.4-10.2) mg/dL Magnesium (1.6-2.3) mg/dL Total Bilirubin (0.2-1.3) mg/dL AST (17-59) U/L ALT (4-49) U/L Alkaline Phosphatase (38-126) U/L Troponin I (0.000-0.034) ng/mL NT-Pro-B Natriuret Pep pg/mL Total Protein (6.3-8.2) g/dL Albumin (3.5-5.0) g/dL - EKG Data EKG Comments: EKG demonstrates A. fib with a rapid ventricular rate of 126. QRS 108. QTC of 521. No acute ST segment elevations or depressions. Right bundle branch block. Disposition Clinical Impression: Hypoxia, HCAP (healthcare-associated pneumonia), Atrial fibrillation with RVR, Status post total right knee replacement, Pulmonary embolism Disposition: ADMITTED IP TO THIS HOSP Condition: Poor Is patient prescribed a controlled substance at d/c from ED?: No Decision to Admit Reason: Admit from EC Decision Date: 01/17/21 Decision Time: 18:09
[2021-01-17] MEDS ORDERED: LEVOFLOXACIN 750MG-D5W PMX 750 MG in DEXTROSE/WATER 1 150ML.BAG IVPB STA (16:18)
[2021-01-17] MEDS ORDERED: HEPARIN SODIUM 1,000 UN/ML (10ML VL) IV PRN (16:19)
[2021-01-17] MEDS ORDERED: HEPARIN SODIUM 1,000 UN/ML (10ML VL) IV ONE (16:19)
[2021-01-17 16:48] LABS: Band Neutrophils % 8 %; Lymphocytes # (M) 0.95 k/uL (1.0-4.8); Metamyelocytes # (M) 0.38 k/uL (0); Metamyelocytes % 2 %; Monocytes # (M) 1.33 k/uL (0-1.0); Myelocytes # (M) 0.19 k/uL (0); Myelocytes % 1 %; Neutrophils % (M) 79 %; Nucleated Red Blood Cells 0 /100 WBC (0-0); Total Cells Counted 200
--- NOTE | 2021-01-17 17:23 | CT ---
EXAMINATION TYPE: CT abdomen pelvis wo con DATE OF EXAM: 01/17/2021 COMPARISON: 10/04/2018 HISTORY: Elevated liver enzymes TECHNIQUE: Helical acquisition of images was performed from the lung bases through the pelvis. CT DLP: 707.5 mGycm Automated exposure control for dose reduction was used. FINDINGS: LOWER THORAX: There are bilateral lower lobe prominent multifocal ill-defined consolidative pulmonary opacities, which can correlate with a clinical diagnosis of pneumonia, with small dependent right pl eural effusion. There is moderate marked cardiomegaly with panchamber enlargement and minimal depende nt pericardial effusion. LIVER/GB: No definite focal liver lesions. There is no intrahepatic biliary dilation and no definite extrahepatic biliary dilation. The gallbla dder is relatively hyperdense and not well-visualized, with ill-defined circumferential margins. Woul d advise ultrasound characterization, with use of Doppler. PANCREAS: Negative as seen. SPLEEN: No significant abnormality is seen. ADRENALS: No significant abnormality is seen. KIDNEYS: No significant abnormality is seen. FREE AIR: No free air is visualized RETROPERITONEAL ADENOPATHY: None visualized REPRODUCTIVE ORGANS: No significant abnormality is seen URINARY BLADDER: No significant abnormality is seen. PELVIC ADENOPATHY: None visualized. OSSEOUS STRUCTURES: No significant abnormality is seen. BOWEL: No acute findings. However, there is evidence suggesting rectal stool impaction, though the s igmoid and remainder of the colon is not distended.. Limitations: The above observations are made, noting the diminished sensitivity of noncontrast CT jitendra ging for focal visceral or intraluminal lesions. Additionally, the patient's upper extremities are al gloria the sides of his body, producing CT beam hardening artifact which further diminishes sensitivity. IMPRESSION: 1. GALLBLADDER: HYPERDENSE AND NOT WELL-VISUALIZED, WITH ILL-DEFINED CIRCUMFERENTIAL MARGINS. WOULD A DVISE ULTRASOUND CHARACTERIZATION AT THIS TIME, WITH USE OF DOPPLER. 2. BILATERAL LOWER LOBE MULTIFOCAL CONSOLIDATIVE INFILTRATES, WITH SMALLER PLEURAL EFFUSION.
[2021-01-17] MEDS ORDERED: VANCOMYCIN IV PER PHARMACY 1 EACH MISC MISCELLANE PRN (18:16)
[2021-01-17] MEDS ORDERED: NALOXONE 0.4 MG/ML 1 ML VIAL IV PRN (18:19)
[2021-01-17] MEDS ORDERED: VANCOMYCIN 1,500 MG in SODIUM CHLORIDE 0.9% 250 ML IVPB STA (18:22)
[2021-01-17] MEDS ORDERED: metroNIDAZOLE-NS PMX 500 MG in SALINE 1 100ML.BAG IVPB STA (18:22)
[2021-01-17] MEDS: HEPARIN SOD,PORK IN 0.45% NACL 25,000 UNIT in 0.45% NACL 1 250ML.BAG IV SCH (19:06)
--- NOTE | 2021-01-17 22:05 | US ---
EXAMINATION TYPE: US gallbladder DATE OF EXAM: 01/17/2021 COMPARISON: CT 01/17/2021 CLINICAL HISTORY: Abn GB on CT. EXAM MEASUREMENTS: Liver Length: 18.3 cm CBD: 0.18 cm Right Kidney: 10.4 x 4.8 x 3.6 cm Limited due to overlying bowel gas. Pancreas: Appears heterogeneous and hyperechoic, limited visibility of tail. Liver: Appears enlarged and to have an increased echogenicity. Gallbladder: Wall appears thickened and heterogeneous in echotexture, difficult to accurately measure . Abnormal gallbladder appearance. Free fluid seen adjacent to the gallbladder: 1.9 x 2.9 x 2.1 cm. Evidence for sonographic Zaragoza's sign: No CBD: Portions seen appear wnl. Right Kidney: Cortex appears thin. Incidental finding- probable right pleural effusion, fluid seen adjacent and superior to the diaphrag m. IMPRESSION: Markedly abnormal gallbladder sonographic and CT appearance, can correlate with a clinical diagnosis of acute cholecystitis.
[2021-01-18] MEDS ORDERED: BUDESONIDE 0.5 MG/2 ML NEBU INHALATION PRN (00:34)
--- NOTE | 2021-01-18 01:04 | P.HPIM ---
History of Present Illness H&P Date: 01/17/21 Chief Complaint: progressive weakness, hypoxemia , hypotension 89 year old male with COPD on 3 L oxygen , afib not on blood thinner, recent diagnosis of PE on eliquis, CHF LVEF 50-55% patient comes in today due to worsening overall mental status, hypotension and hypoxemia . patient overall health has been deteriorating since his elective knee surgery due to intractable pain back in September of this year, since then he has been in steady decline. he has history of stroke 15 years ago , and has been doing well since then. however, since his surgery back in September , it is suspected that he had some "mini strokes" that lead to expressive aphasia and decline in over all patient status, he became progressively weak with frequent hospitalizations. he required inpatient rehab, then went home, however, presented to our hospital late in December where he was diagnosed with afib with RVR, stable elevated trops, improved CHF with LVEF improving from 35% to 55%. new PE for which he was started on eliquis. he was discharged stable condition home on 01/12 , and over past couple days he was having worsening mental status , he had a good meal per his last night (Tuesday 01/16) but she suspect he had his oxygen off all night. and this morning it was hard to wake him up , she is not aware of any fever, chest pain , but noticed that he has been having some increased cough, and grimacing as if he is having abd pain , patient has expressive aphasia and unable to provide any meaningful history . patient last bowel movement was 5 days ago, patient denies any GI bleeding since he was started on eliquis for new acute PE last hospitalization . patient has been also having advanced dementia today , he had his home care nurse and PT nurse visiting, where he has been sleeping all day even though his sponge bath, which was kind of unusual for him, then his nurse found he was hypotensive and hypoxic for which notified EMS and was brought to our facility . in the ED , workup shows possible pneumonia or reactive lower lung disease secondary to acute cholangitis . patient was given IVF hydration and started on IV antibiotics. he was also found to have elevated trops, no report of chest pain , EKG no acute ST changes. he was started on heparin drip , cardiology aware. Review of Systems ROS unobtainable: due to mental status Past Medical History Past Medical History: Atrial Fibrillation, COPD, CVA/TIA, Memory Impairment, Osteoarthritis (OA) Additional Past Medical History / Comment(s): broncitis, emphysema History of Any Multi-Drug Resistant Organisms: None Reported Past Surgical History: Appendectomy, Hernia Repair, Orthopedic Surgery Additional Past Surgical History / Comment(s): Fractured right ankle and left arm. hernia repair with mesh. Cateract surgery 10/2020 Past Anesthesia/Blood Transfusion Reactions: No Reported Reaction Past Psychological History: No Psychological Hx Reported Smoking Status: Former smoker Past Alcohol Use History: Daily Past Drug Use History: None Reported - Past Family History Father Family Medical History: AFIB, Cancer Additional Family Medical History / Comment(s): Cancer Mother Family Medical History: AFIB, Cancer Additional Family Medical History / Comment(s): Breast CA Sister(s) Family Medical History: AFIB Additional Family Medical History / Comment(s): 2 sisters with breast CA Brother(s) Family Medical History: AFIB, Cancer, Myocardial Infarction ([place]) Additional Family Medical History / Comment(s): Lung CA Medications and Allergies Home Medications Medication Instructions Recorded Confirmed Type Levalbuterol Nebulized [Xopenex 1.25 mg INHALATION RT-TID PRN 10/04/18 01/17/21 History Nebulized] Budesonide [Pulmicort] 0.5 mg INHALATION RT-BID PRN 02/17/19 01/17/21 History Acetaminophen Tab [Tylenol] 650 mg PO Q4H PRN #30 tablet 02/18/19 01/17/21 Rx Tamsulosin [Flomax] 0.4 mg PO DAILY 01/08/21 01/17/21 History Metoprolol Succinate (ER) [Toprol 50 mg PO DAILY #30 tab 01/12/21 01/17/21 Rx XL] Metoprolol Succinate (ER) [Toprol 100 mg PO HS #30 tab 01/12/21 01/17/21 Rx XL] Apixaban [Eliquis Starter Pack See Taper PO DIRECTED 01/17/21 01/17/21 History (for VTE)] Furosemide [Lasix] 40 mg PO DAILY 01/17/21 01/17/21 History QUEtiapine [SEROquel] 25 mg PO HS 01/17/21 01/17/21 History Allergies Allergy/AdvReac Type Severity Reaction Status Date / Time cefuroxime [From Ceftin] Allergy Rash/Hives Verified 01/17/21 17:07 simvastatin AdvReac Severe Kidney Verified 01/17/21 17:07 Issues Physical Exam Vitals: Vital Signs Temp Pulse Resp BP Pulse Ox 01/17/21 20:10 117 H 26 H 71/57 92 L 01/17/21 17:59 122 H 18 92/65 85 L 01/17/21 15:57 120 H 01/17/21 15:40 70 16 64/46 85 L 01/17/21 15:30 86 01/17/21 15:24 98 F 71 14 68/32 95 Intake and Output 01/17/21 01/17/21 01/17/21 06:59 14:59 22:59 Other: Weight 74.525 kg Constitutional: No acute distress however, he seems little anxious and wants to get up, otherwise makes good eye contact, and cooperative, patient has expressive aphasia Eyes: Anicteric sclerae, moist conjunctiva, Pupils equal round reactive to light ENMT: NC/AT Oropharynx clear, no erythema, or exudates Neck: Supple, no masses, or JVD No carotid bruits No thyromegaly Lungs: decrease breath sounds at lung basis no wheezing Clear to percussion Normal respiratory effort, no accessory muscle use Cardiovascular: Heart irregular , tachy No murmurs, gallops, or rubs +2 peripheral edema bilaterally Abdominal: Soft Nontender, no guarding, rebound or rigidity Abdomen moving with respiration Normoactive bowel sounds No hepatomegaly, No splenomegaly No palpable mass No abdominal wall hernia noted dependant edema Skin: cold extremities , no rash, no ulcers , Extremities: No digital cyanosis No clubbing Pedal pulses weak and symmetrical, capillary refill immediate, cold extremities Radial pulses intact and symmetrical No calf tenderness Psychiatric: Alert and oriented to person Neuro Muscles Strength 2/5 in bilateral lower extremities , 3/5 in bilateral upper extremities unable to reliably assess sensation , unable to perform full CN exam Lymphatics: no palpable cervical or supraclavicular , or inguinal lymph nodes Results CBC & Chem 7: 01/17/21 15:49 01/17/21 15:49 Labs: Abnormal Lab Results - Last 24 Hours (Table) 01/17/21 01/17/21 01/17/21 Range/Units 15:49 15:49 15:49 WBC 19.0 H (3.8-10.6) k/uL RBC 3.60 L (4.30-5.90) m/uL Hgb 12.0 L (13.0-17.5) gm/dL MCV 108.2 H (80.0-100.0) fL MCHC 30.8 L (31.0-37.0) g/dL Neutrophils # (Manual) 16.50 H (1.3-7.7) k/uL Lymphocytes # (Manual) 0.95 L (1.0-4.8) k/uL Monocytes # (Manual) 1.33 H (0-1.0) k/uL Metamyelocytes # (Man) 0.38 H (0) k/uL Myelocytes # (Manual) 0.19 H (0) k/uL Macrocytosis Marked A PT 17.8 H (9.0-12.0) sec INR 1.8 H (<1.2) D-Dimer 4.06 H (<0.60) mg/L FEU Carbon Dioxide 34 H (22-30) mmol/L BUN 64 H (9-20) mg/dL Creatinine 2.30 H (0.66-1.25) mg/dL Plasma Lactic Acid Angelo (0.7-2.0) mmol/L Total Bilirubin 2.8 H (0.2-1.3) mg/dL AST 687 H (17-59) U/L ALT 485 H (4-49) U/L Troponin I (0.000-0.034) ng/mL Total Protein 5.7 L (6.3-8.2) g/dL Albumin 3.1 L (3.5-5.0) g/dL 01/17/21 01/17/21 Range/Units 15:49 15:49 WBC (3.8-10.6) k/uL RBC (4.30-5.90) m/uL Hgb (13.0-17.5) gm/dL MCV (80.0-100.0) fL MCHC (31.0-37.0) g/dL Neutrophils # (Manual) (1.3-7.7) k/uL Lymphocytes # (Manual) (1.0-4.8) k/uL Monocytes # (Manual) (0-1.0) k/uL Metamyelocytes # (Man) (0) k/uL Myelocytes # (Manual) (0) k/uL Macrocytosis PT (9.0-12.0) sec INR (<1.2) D-Dimer (<0.60) mg/L FEU Carbon Dioxide (22-30) mmol/L BUN (9-20) mg/dL Creatinine (0.66-1.25) mg/dL Plasma Lactic Acid Angelo 5.4 H* (0.7-2.0) mmol/L Total Bilirubin (0.2-1.3) mg/dL AST (17-59) U/L ALT (4-49) U/L Troponin I 3.000 H* (0.000-0.034) ng/mL Total Protein (6.3-8.2) g/dL Albumin (3.5-5.0) g/dL Assessment and Plan Assessment: acute on chronic hypoxic respiratory failure sepsis with suspected ascending cholangitis , possible pneumonia acute metabolic encephalopath y pulmonary interstitial edema with small bilateral pleural effusion secondary to underlying CHF recent diagnosis of PE on eliquis elevated trops NSTEMI vs demand ischemia MAIKOL plan follow up cultures supportive care , patient given cautious fluid resuscitation due to interstitial pulmonary edema and peripheral leg edema underlying CHF empiric antibiotics with vanco , flagyl and levofloxacin which would cover, intrabdominal and pulmonary source due to worsening lactic acid and worsening blood pressure despite resuscitation measures, will start levophed ICU admission heparin drip for trending up trops and recent diagnosis of PE cardiology consult pulmonary consult for ICU care noe cath for accurate output continue with IVF hydration avoid nephrotoxic meds CT abd reviewed US abd reviewed chronic conditions COPD on 3 L oxygen , resume inhalers and PRN duoneb recent PE diagnosis on Eliquis, now on heparin drip progressive dementia hypertension now hypotensive BPH chronic anemia , stable home meds on hold guarded prognosis no code anticipated length of stay > 2 midnights anticipated discharge pending clinical course
--- NOTE | 2021-01-18 01:07 | P.HPADDEND ---
H&P Addendum H&P Addendum Date: 01/17/21 Advanced Care Planning Active diagnoses: sepsis Background: The patient was admitted for treatment of severe sepsis with septic shock Discussion: Person(s) present and participating in discussion: The patient, myself, and patient Summary: Patient has expressive aphasia, reports that patient overall condition has been declining over the past few months. She expresses his wishes to be a no code without any heroic measures and no intubation and mechanical ventilation she is okay with BiPAP if needed. She is okay with pursuing aggressive medical measures initially with ICU admission IV pressors still would not like to consider any intubations. Patient has been in and out of hospitals over the past couple months she would like to have him home eventually she has established home health care and home physical therapy. She understands the patient is critically ill, but would like aggressive measures for at least couple days in hopes that he would improve otherwise she might consider comfort measures to keep him comfortable if he shows no signs of improvement. Time spent: Total time spent face to face in education and discussion directly related to advanced care planninminutes
[2021-01-18] MEDS ORDERED: SODIUM CHLORIDE 0.9% 500 ML 500 ML IV ONE (01:28)
[2021-01-18 02:06] LABS: Amorphous Sediment,Urine Few /hpf; Appearance,Urine Turbid (Clear); Bacteria,Urine Rare /hpf; Bilirubin,Urine 1+ (Negative); Blood,Urine Small (Negative); Color,Urine Dark Brown; Glucose,Urine (UA) Trace (Negative); Hyaline Casts,Urine 12 /lpf (0-2); Ketones,Urine Negative (Negative); Leukocyte Esterase,Urine Trace (Negative); Mucus,Urine Rare /hpf; Nitrite,Urine Negative (Negative); PH, Urine 5.5 (5.0-8.0); Protein,Urine 3+ (Negative); RBC,Urine 6 /hpf (0-5); Specific Gravity,Urine 1.026 (1.001-1.035); Squamous Epithelial Cell,Urine <1 /hpf (0-4); WBC,Urine 8 /hpf (0-5)
[2021-01-18 02:36] LABS: Glucose,Whole Blood 83 mg/dL (75-99)
[2021-01-18] MEDS: metroNIDAZOLE-NS PMX 500 MG in SALINE 1 100ML.BAG IVPB SCH ×3 (03:49→17:32)
[2021-01-18 05:39] LABS: INR 4.4 (<1.2); Prothrombin Time 42.3 sec (9.0-12.0)
[2021-01-18 05:56] LABS: Albumin 3.1 g/dL (3.5-5.0); Calcium 8.1 mg/dL (8.4-10.2); Potassium 5.8 mmol/L (3.5-5.1); Total Bilirubin 2.2 mg/dL (0.2-1.3); Total Protein 5.9 g/dL (6.3-8.2)
[2021-01-18 06:19] LABS: HCT 36.6 % (39.0-53.0); HGB 11.3 gm/dL (13.0-17.5); Hypochromasia Moderate; MCH 34.3 pg (25.0-35.0); MCHC 30.8 g/dL (31.0-37.0); MCV 111.3 fL (80.0-100.0); Macrocytosis Marked; Mean Platelet Volume 9.2; Platelet Count 116 k/uL (150-450); RBC 3.28 m/uL (4.30-5.90); RDW 14.1 % (11.5-15.5); WBC 21.5 k/uL (3.8-10.6)
[2021-01-18] MEDS: SODIUM CHLORIDE 0.9% 1,000 ML IV SCH ×2 (06:56→09:58)
--- NOTE | 2021-01-18 07:33 | XR ---
EXAMINATION TYPE: XR chest 1V portable DATE OF EXAM: 01/18/2021 COMPARISON: 01/17/2021 HISTORY: Short of breath TECHNIQUE: Single frontal view of the chest is obtained. FINDINGS: Slight interval improvement of aeration of the left lung base with residual left basilar a irspace disease. Persistent right pleural effusion is also present. Cardiac silhouette is unchanged. IMPRESSION: Slight interval improvement of aeration of the left lung base with residual left basilar airspace disease.
--- NOTE | 2021-01-18 08:52 | P.CNPUL ---
History of Present Illness Consult date: 01/18/21 Requesting physician: Rupal Vieyra Reason for consult: other (Critical Care management) Chief complaint: Lethargy, hypotension History of present illness: This is an 89-year-old gentleman with known history of paroxysmal atrial fibrillation not anticoagulated in the past, congestive heart failure, cerebrovascular accident, advanced dementia, recent total right knee arthroplasty on 12/12/2020. Following that discharge he was anticoagulated with Eliquis discharge to [facility] rehab on 12/17/2020. He is brought back to the emergency room on 01/08/2021 for a higher heart rate and was found to be in atrial fibrillation with a rapid ventricular response. Echocardiogram revealed reserved left ventricular systolic function with ejection fraction of 5055%. Right ventricle is moderately to severely enlarged. Moderate to severe mitral regurgitation, severe tricuspid regurgitation, severe pulmonary hypertension with an RVSP of 80.[address] angiogram was consistent with congestive heart failure, cardiomegaly and small right greater than left pleural effusions. There were tiny peripheral pulmonary embolism in the left lower lobe artery as it began segmental branch. He was discharged again on 01/12/2021 to home with home care. He was on Eliquis. He was brought back to the emergency room again yesterday 01/17/2021 after the home care nurse found him to be hypotensive, hypoxic and lethargic. CAT scan of the abdomen and pelvis revealed gallbladder hyperdense and not well-visualized with ill-defined circumferential margins. Bilateral lower lobe multifocal consolidative infiltrates with small pleural effusions. Ultrasound of the gallbladder revealed markedly abnormal gallbladder with possible acute cholecystitis. Chest x-ray revealed improved aeration in the left lung base with residual left basilar airspace disease. White count 21.5. Hemoglobin 11.3. Platelet count 116,000. INR 4.4. D-dimer 4.06. Sodium 138. Potassium 5.8. Creatinine 2.77. Initial lactic acid 6.2, currently 4.5. AST 2420, ALT 1484. Alk phos 84. Troponin 8.87, 10.2. ProBNP 26,000 albumin 3.1. Urinalysis with 3+ protein and small blood few WBCs. Coronavirus by PCR not detected. He's been hypotensive in the 80s and 90s systolic with mean arterial pressures in the 60s and 70s. He is tachycardic at 117 currently in sinus rhythm. He is on a nonrebreather mask with O2 saturatio ns up to 100%. He is seen today in consultation in the intensive care unit. He is awake, garbled speech, oriented times one only. He denies any abdominal pain. No rebound tenderness or distention. Abdomen is soft. He had been initiated on vancomycin, Levaquin, Flagyl. No pressors thus far. 0.9#75 ML's Per Hour. He Has Received 1 L of Fluid Resuscitation. Urine output is minimal. Hematuria. Review of Systems ROS unobtainable: due to mental status Past Medical History Past Medical History: Atrial Fibrillation, COPD, CVA/TIA, Memory Impairment, Osteoarthritis (OA) Additional Past Medical History / Comment(s): broncitis, emphysema History of Any Multi-Drug Resistant Organisms: None Reported Past Surgical History: Appendectomy, Hernia Repair, Orthopedic Surgery Additional Past Surgical History / Comment(s): Fractured right ankle and left arm. hernia repair with mesh. Cateract surgery 10/2020 Past Anesthesia/Blood Transfusion Reactions: No Reported Reaction Past Psychological History: No Psychological Hx Reported Smoking Status: Former smoker Past Alcohol Use History: Daily Past Drug Use History: None Reported - Past Family History Father Family Medical History: AFIB, Cancer Additional Family Medical History / Comment(s): Cancer Mother Family Medical History: AFIB, Cancer Additional Family Medical History / Comment(s): Breast CA Sister(s) Family Medical History: AFIB Additional Family Medical History / Comment(s): 2 sisters with breast CA Brother(s) Family Medical History: AFIB, Cancer, Myocardial Infarction ([place]) Additional Family Medical History / Comment(s): Lung CA Medications and Allergies Home Medications Medication Instructions Recorded Confirmed Type Levalbuterol Nebulized [Xopenex 1.25 mg INHALATION RT-TID PRN 10/04/18 01/17/21 History Nebulized] Budesonide [Pulmicort] 0.5 mg INHALATION RT-BID PRN 02/17/19 01/17/21 History Acetaminophen Tab [Tylenol] 650 mg PO Q4H PRN #30 tablet 02/18/19 01/17/21 Rx Tamsulosin [Flomax] 0.4 mg PO DAILY 01/08/21 01/17/21 History Metoprolol Succinate (ER) [Toprol 50 mg PO DAILY #30 tab 01/12/21 01/17/21 Rx XL] Metoprolol Succinate (ER) [Toprol 100 mg PO HS #30 tab 01/12/21 01/17/21 Rx XL] Apixaban [Eliquis Starter Pack See Taper PO DIRECTED 01/17/21 01/17/21 History (for VTE)] Furosemide [Lasix] 40 mg PO DAILY 01/17/21 01/17/21 History QUEtiapine [SEROquel] 25 mg PO HS 01/17/21 01/17/21 History Allergies Allergy/AdvReac Type Severity Reaction Status Date / Time cefuroxime [From Ceftin] Allergy Rash/Hives Verified 01/17/21 17:07 simvastatin AdvReac Severe Kidney Verified 01/17/21 17:07 Issues Physical Exam Vitals: Vital Signs Temp Pulse Resp BP Pulse Ox 01/18/21 07:00 116 H 21 96/74 95 01/18/21 06:00 118 H 20 88/72 100 01/18/21 05:00 117 H 22 78/64 97 01/18/21 04:00 97.9 F 117 H 27 H 84/63 99 01/18/21 03:00 118 H 31 H 107/48 90 L 01/18/21 02:34 116 H 32 H 01/18/21 01:45 117 H 26 H 95 01/18/21 01:00 120 H 26 H 96/54 93 L 01/18/21 00:00 111 H 26 H 94/56 87 L 01/17/21 23:00 120 H 20 82/64 86 L 01/17/21 22:00 120 H 26 H 86/64 85 L 01/17/21 21:18 120 H 20 83/66 87 L 01/17/21 20:10 117 H 26 H 71/57 92 L 01/17/21 17:59 122 H 18 92/65 85 L 01/17/21 15:57 120 H 01/17/21 15:40 70 16 64/46 85 L 01/17/21 15:30 86 01/17/21 15:24 98 F 71 14 68/32 95 Intake and Output 01/17/21 01/18/21 01/18/21 22:59 06:59 14:59 Intake Total 538.048 75 Output Total 40 0 Balance 498.048 75 Intake: IV 475 75 Levofloxacin 750Mg-D5w 100 Pmx 750 mg In Dextrose/ Water 1 150ml.bag @ 100 mls/hr IVPB ONCE STA Rx#: [id number] Sodium Chloride 0.9% 1, 375 75 000 ml @ 75 mls/hr IV . [id number] MARY Rx#:[id number] Intake, IV Titration 63.048 Amount Heparin Sod,Pork in 0.45% 63.048 NaCl 25,000 unit In 0.45 % NaCl 1 250ml.bag @ 12 UNITS/KG/HR 8.943 mls/hr IV .Q24H MARY Rx#: [id number] Output: Urine 40 0 Uretheral (Shea) 10 Other: Voiding Method Indwelling Catheter Weight 74.525 kg 74.525 kg GENERAL EXAM: Alert, frail 82-year-old gentleman, on nonrebreather mask, fairly comfortable in no apparent distress. HEAD: Normocephalic. EYES: Normal reaction of pupils, equal size. NOSE: Clear with pink turbinates. THROAT: No erythema or exudates. NECK: No masses, no JVD. CHEST: No chest wall deformity. LUNGS: Equal air entry with crackles in the bilateral bases. CVS: S1 and S2 normal with an audible murmur, regular rhythm. ABDOMEN: No hepatosplenomegaly, normal bowel sounds, no guarding or rigidity. SPINE: No scoliosis or deformity SKIN: No rashes CENTRAL NERVOUS SYSTEM: Advanced dementia, oriented times one, garbled speech, tone is normal in all 4 extremities. EXTREMITIES: There is 1+ peripheral edema. No clubbing, no cyanosis. Peripheral pulses are intact. Results - Laboratory Findings CBC and BMP: 01/18/21 04:55 01/18/21 04:55 PT/INR, D-dimer PT 42.3 sec (9.0-12.0) H 01/18/21 04:55 INR 4.4 (<1.2) H 01/18/21 04:55 D-Dimer 4.06 mg/L FEU (<0.60) H 01/17/21 15:49 Abnormal lab findings: Abnormal Labs 01/17/21 01/17/21 01/17/21 15:49 15:49 15:49 WBC 19.0 H RBC 3.60 L Hgb 12.0 L Hct MCV 108.2 H MCHC 30.8 L Plt Count Neutrophils # (Manual) 16.50 H Lymphocytes # (Manual) 0.95 L Monocytes # (Manual) 1.33 H Metamyelocytes # (Man) 0.38 H Myelocytes # (Manual) 0.19 H Macrocytosis Marked A PT 17.8 H INR 1.8 H APTT D-Dimer 4.06 H Potassium Carbon Dioxide 34 H BUN 64 H Creatinine 2.30 H Plasma Lactic Acid Angelo Calcium Total Bilirubin 2.8 H AST 687 H ALT 485 H Troponin I Total Protein 5.7 L Albumin 3.1 L Urine Protein Urine Glucose (UA) Urine Blood Urine Bilirubin Ur Leukocyte Esterase Urine RBC Urine WBC Urine WBC Clumps Amorphous Sediment Urine Bacteria Hyaline Casts Urine Mucus 01/17/21 01/17/21 01/17/21 15:49 15:49 22:04 WBC RBC Hgb Hct MCV MCHC Plt Count Neutrophils # (Manual) Lymphocytes # (Manual) Monocytes # (Manual) Metamyelocytes # (Man) Myelocytes # (Manual) Macrocytosis PT INR APTT D-Dimer Potassium Carbon Dioxide BUN Creatinine Plasma Lactic Acid Angelo 5.4 H* 6.2 H* Calcium Total Bilirubin AST ALT Troponin I 3.000 H* Total Protein Albumin Urine Protein Urine Glucose (UA) Urine Blood Urine Bilirubin Ur Leukocyte Esterase Urine RBC Urine WBC Urine WBC Clumps Amorphous Sediment Urine Bacteria Hyaline Casts Urine Mucus 01/17/21 01/18/21 01/18/21 22:04 00:37 00:37 WBC RBC Hgb Hct MCV MCHC Plt Count Neutrophils # (Manual) Lymphocytes # (Manual) Monocytes # (Manual) Metamyelocytes # (Man) Myelocytes # (Manual) Macrocytosis PT INR APTT 42.4 H D-Dimer Potassium Carbon Dioxide BUN Creatinine Plasma Lactic Acid Angelo Calcium Total Bilirubin AST ALT Troponin I 8.870 H* 10.200 H* Total Protein Albumin Urine Protein Urine Glucose (UA) Urine Blood Urine Bilirubin Ur Leukocyte Esterase Urine RBC Urine WBC Urine WBC Clumps Amorphous Sediment Urine Bacteria Hyaline Casts Urine Mucus 01/18/21 01/18/21 01/18/21 01:11 01:21 04:55 WBC 21.5 H RBC 3.28 L Hgb 11.3 L Hct 36.6 L MCV 111.3 H MCHC 30.8 L Plt Count 116 L Neutrophils # (Manual) Lymphocytes # (Manual) Monocytes # (Manual) Metamyelocytes # (Man) Myelocytes # (Manual) Macrocytosis Marked A PT INR APTT D-Dimer Potassium Carbon Dioxide BUN Creatinine Plasma Lactic Acid Angelo 4.5 H* Calcium Total Bilirubin AST ALT Troponin I Total Protein Albumin Urine Protein 3+ H Urine Glucose (UA) Trace H Urine Blood Small H Urine Bilirubin 1+ H Ur Leukocyte Esterase Trace H Urine RBC 6 H Urine WBC 8 H Urine WBC Clumps Few H Amorphous Sediment Few H Urine Bacteria Rare H Hyaline Casts 12 H Urine Mucus Rare H 01/18/21 01/18/21 04:55 04:55 WBC RBC Hgb Hct MCV MCHC Plt Count Neutrophils # (Manual) Lymphocytes # (Manual) Monocytes # (Manual) Metamyelocytes # (Man) Myelocytes # (Manual) Macrocytosis PT 42.3 H INR 4.4 H APTT D-Dimer Potassium 5.8 H Carbon Dioxide BUN 74 H Creatinine 2.77 H Plasma Lactic Acid Angelo Calcium 8.1 L Total Bilirubin 2.2 H AST 2420 H ALT 1484 H Troponin I Total Protein 5.9 L Albumin 3.1 L Urine Protein Urine Glucose (UA) Urine Blood Urine Bilirubin Ur Leukocyte Esterase Urine RBC Urine WBC Urine WBC Clumps Amorphous Sediment Urine Bacteria Hyaline Casts Urine Mucus - Diagnostic Findings Chest x-ray: image reviewed Assessment and Plan Assessment: 1 Acute sepsis of unclear etiology with hypotension, not requiring pressors at this time. Initiated on vancomycin, Levaquin, Flagyl 2 Acute lactic acidosis 3 Acute renal failure. Current creatinine 2.77 4 Acute shock liver. Secondary to sepsis 5 Coagulopathy secondary to above with INR 4.4 platelets 116 compared to 157 yes terday 6 Atrial fibrillation with rapid ventricular response, anticoagulated with Eliquis, currently sinus tachycardia possible a flutter 7 Leukocytosis 8 Non-ST segment elevation myocardial infarction 9 Recent total knee replacement on 12/12/2020 10 Recent readmission to the hospital for atrial fibrillation with rapid ventricular response on 01/08/2021 11 Small subsegmental pulmonary embolism noted on CT angiogram 01/10/2021 12 Advanced dementia with poor overall functional performance 13 History of CVA Plan: The patient was seen and evaluated by Dr. Cleary Discontinue vancomycin Repeat echocardiogram Possible surgical consult Discontinue heparin drip, INR 4.4 Change from nonrebreather mask to nasal cannula if tolerated Titrate the FiO2 as tolerated The patient is a DNR/DNI CODE STATUS Prognosis remains quite guarded The patient's may consider home with hospice We'll make further recommendations based on her decision and the patient's clinical status I, the cosigning physician, performed a history & physical examination of the patient. Lungs sounds crackles in bilateral bases. Maintaining good O2 saturations in the 90s on nonrebreather mask. I discussed the assessment and plan of care with my nurse practitioner, Carolyn Shi. I attest to the above note as dictated by her. Time with Patient: Greater than 30
[2021-01-18] MEDS ORDERED: VANCOMYCIN 1,500 MG in SODIUM CHLORIDE 0.9% 250 ML IVPB ONE (09:00)
[2021-01-18 09:38] LABS: Band Neutrophils % 12 %; Lymphocytes # (M) 0.65 k/uL (1.0-4.8); Metamyelocytes # (M) 0.43 k/uL (0); Metamyelocytes % 2 %; Monocytes # (M) 1.08 k/uL (0-1.0); Myelocytes # (M) 0.22 k/uL (0); Myelocytes % 1 %; Neutrophils % (M) 78 %; Nucleated Red Blood Cells 0 /100 WBC (0-0); Total Cells Counted 200
[2021-01-18 09:39] LABS: Toxic Granulation Present
--- NOTE | 2021-01-18 11:59 | P.CRDCN ---
History of Present Illness Consult date: 01/18/21 History of present illness: This is a 89-year-old gentleman with history of CVA, dementia, paroxysmal atrial fibrillation and recent total knee the arthroplasty who was discharged to [place] [address] with rehab program on anticoagulation therapy. Patient was brought back to the emergency room with complaints of patient began hypotensive and lethargic. Computed tomography scan of the abdomen showed findings consistent with gallbladder disease and cholecystitis. Chest x-ray showed possible pneumonia. Patient's white count is 21,000. His platelet count is 116,000. His creatinine is 2.77. Lactic acid was 6.2. AST is 2420 and the ALT is 1484. Patient troponin value was 8.8 and 10.2. EKG showed probably atrial tachycardia versus junctional tachycardia with heart rates in the 120s. Patient is no code and family is being informed and attempts are being made for possible comfort care. Given his multiple medical problems and a critical health status, patient is not a candidate for an aggressive coronary interventions. I agree with attempts to make him comfort care. If this may change in the plans, please let cardiology be informed. Review of Systems As per the chart Past Medical History Past Medical History: Atrial Fibrillation, COPD, CVA/TIA, Memory Impairment, Osteoarthritis (OA) Additional Past Medical History / Comment(s): broncitis, emphysema History of Any Multi-Drug Resistant Organisms: None Reported Past Surgical History: Appendectomy, Hernia Repair, Orthopedic Surgery Additional Past Surgical History / Comment(s): Fractured right ankle and left arm. hernia repair with mesh. Cateract surgery 10/2020 Past Anesthesia/Blood Transfusion Reactions: No Reported Reaction Past Psychological History: No Psychological Hx Reported Smoking Status: Former smoker Past Alcohol Use History: Daily Past Drug Use History: None Reported - Past Family History Father Family Medical History: AFIB, Cancer Additional Family Medical History / Comment(s): Cancer Mother Family Medical History: AFIB, Cancer Additional Family Medical History / Comment(s): Breast CA Sister(s) Family Medical History: AFIB Additional Family Medical History / Comment(s): 2 sisters with breast CA Brother(s) Family Medical History: AFIB, Cancer, Myocardial Infarction ([place]) Additional Family Medical History / Comment(s): Lung CA Medications and Allergies Home Medications Medication Instructions Recorded Confirmed Type Levalbuterol Nebulized [Xopenex 1.25 mg INHALATION RT-TID PRN 10/04/18 01/17/21 History Nebulized] Budesonide [Pulmicort] 0.5 mg INHALATION RT-BID PRN 02/17/19 01/17/21 History Acetaminophen Tab [Tylenol] 650 mg PO Q4H PRN #30 tablet 02/18/19 01/17/21 Rx Tamsulosin [Flomax] 0.4 mg PO DAILY 01/08/21 01/17/21 History Metoprolol Succinate (ER) [Toprol 50 mg PO DAILY #30 tab 01/12/21 01/17/21 Rx XL] Metoprolol Succinate (ER) [Toprol 100 mg PO HS #30 tab 01/12/21 01/17/21 Rx XL] Apixaban [Eliquis Starter Pack See Taper PO DIRECTED 01/17/21 01/17/21 History (for VTE)] Furosemide [Lasix] 40 mg PO DAILY 01/17/21 01/17/21 History QUEtiapine [SEROquel] 25 mg PO HS 01/17/21 01/17/21 History Allergies Allergy/AdvReac Type Severity Reaction Status Date / Time cefuroxime [From Ceftin] Allergy Rash/Hives Verified 01/17/21 17:07 simvastatin AdvReac Severe Kidney Verified 01/17/21 17:07 Issues Physical Exam Vitals: Vital Signs Temp Pulse Resp BP Pulse Ox 01/18/21 07:00 116 H 21 96/74 95 01/18/21 06:00 118 H 20 88/72 100 01/18/21 05:00 117 H 22 78/64 97 01/18/21 04:00 97.9 F 117 H 27 H 84/63 99 01/18/21 03:00 118 H 31 H 107/48 90 L 01/18/21 02:34 116 H 32 H 01/18/21 01:45 117 H 26 H 95 01/18/21 01:00 120 H 26 H 96/54 93 L 01/18/21 00:00 111 H 26 H 94/56 87 L 01/17/21 23:00 120 H 20 82/64 86 L 01/17/21 22:00 120 H 26 H 86/64 85 L 01/17/21 21:18 120 H 20 83/66 87 L 01/17/21 20:10 117 H 26 H 71/57 92 L 01/17/21 17:59 122 H 18 92/65 85 L 01/17/21 15:57 120 H 01/17/21 15:40 70 16 64/46 85 L 01/17/21 15:30 86 01/17/21 15:24 98 F 71 14 68/32 95 Intake and Output 01/17/21 01/18/21 01/18/21 22:59 06:59 14:59 Intake Total 538.048 164.915 Output Total 40 0 Balance 498.048 164.915 Intake: IV 475 75 Levofloxacin 750Mg-D5w 100 Pmx 750 mg In Dextrose/ Water 1 150ml.bag @ 100 mls/hr IVPB ONCE STA Rx#: [id number] Sodium Chloride 0.9% 1, 375 75 000 ml @ 75 mls/hr IV . [id number] MARY Rx#:[id number] Intake, IV Titration 63.048 89.915 Amount Heparin Sod,Pork in 0.45% 63.048 89.915 NaCl 25,000 unit In 0.45 % NaCl 1 250ml.bag @ 12 UNITS/KG/HR 8.943 mls/hr IV .Q24H MARY Rx#: [id number] Output: Urine 40 0 Uretheral (Shea) 10 Other: Voiding Method Indwelling Catheter Weight 74.525 kg 74.525 kg GENERAL EXAM: Patient is frail looking gentleman on nonrebreather mask HEENT: Normocephalic. Normal reaction of pupils, equal size, normal range of extraocular motion. No erythema or exudates in the throat. NECK: No masses, no nuchal rigidity. CHEST: No chest wall deformity. LUNGS: Crackles at the bases HEART: S1 and S2 normal with no audible mumurs or gallops. Regular rhythm, femorals equal on both sides.. ABDOMEN: Not distended SKIN: No rashes CENTRAL NERVOUS SYSTEM: Deferred EXTREMITIES: 1+ edema Results 01/18/21 04:55 01/18/21 04:55 Cardiac Enzymes 01/17/21 01/17/21 01/17/21 Range/Units 15:49 15:49 22:04 AST 687 H (17-59) U/L Troponin I 3.000 H* 8.870 H* (0.000-0.034) ng/mL 01/18/21 01/18/21 Range/Units 00:37 04:55 AST 2420 H (17-59) U/L Troponin I 10.200 H* (0.000-0.034) ng/mL Coagulation 01/17/21 01/18/21 01/18/21 Range/Units 15:49 00:37 04:55 PT 17.8 H 42.3 H (9.0-12.0) sec APTT 27.2 42.4 H (22.0-30.0) sec 01/18/21 Range/Units 09:09 PT (9.0-12.0) sec APTT 122.8 H* (22.0-30.0) sec CBC 01/17/21 01/18/21 Range/Units 15:49 04:55 WBC 19.0 H 21.5 H (3.8-10.6) k/uL RBC 3.60 L 3.28 L (4.30-5.90) m/uL Hgb 12.0 L 11.3 L (13.0-17.5) gm/dL Hct 39.0 36.6 L (39.0-53.0) % Plt Count 157 116 L (150-450) k/uL Comprehensive Metabolic Panel 01/17/21 01/18/21 Range/Units 15:49 04:55 Sodium 139 138 (137-145) mmol/L Potassium 5.0 5.8 H (3.5-5.1) mmol/L Chloride 98 101 (98-107) mmol/L Carbon Dioxide 34 H 29 (22-30) mmol/L BUN 64 H 74 H (9-20) mg/dL Creatinine 2.30 H 2.77 H (0.66-1.25) mg/dL Glucose 95 82 (74-99) mg/dL Calcium 8.6 8.1 L (8.4-10.2) mg/dL AST 687 H 2420 H (17-59) U/L ALT 485 H 1484 H (4-49) U/L Alkaline Phosphatase 79 84 (38-126) U/L Total Protein 5.7 L 5.9 L (6.3-8.2) g/dL Albumin 3.1 L 3.1 L (3.5-5.0) g/dL Current Medications Generic Name Dose Route Start Last Admin Trade Name Freq PRN Reason Stop Dose Admin Albuterol/Ipratropium 3 ml 01/18/21 01:08 Ipratropium-Albuterol 3 Ml Neb INHALATION RT-Q4H PRN Shortness Of Breath Or Wheezing Budesonide 0.5 mg 01/18/21 00:34 Budesonide 0.5 Mg/2 Ml Nebu INHALATION RT-BID PRN Shortness Of Breath Heparin Sodium (Porcine) 0 unit 01/17/21 16:19 01/18/21 02:13 Heparin Sodium 1,000 Un/Ml (10ml Vl) IV 1,863 unit PER PROTOCOL PRN Administration Low PTT Protocol Sodium Chloride 1,000 mls @ 75 mls/hr 01/17/21 16:00 01/18/21 09:58 Saline 0.9% IV 75 mls/hr .[id number] MARY Administration Heparin Sodium/Sodium Chloride 250 mls @ 8.943 mls/hr 01/17/21 16:30 01/18/21 10:22 25,000 unit/ Sodium Chloride IV 0 units/kg/hr .Q24H MARY 0 mls/hr Titration Protocol 12 UNITS/KG/HR Levofloxacin 750 mg/ IV 150 mls @ 100 mls/hr 01/18/21 18:00 Solution IVPB Q24H MARY Metronidazole 500 mg/ IV 100 mls @ 100 mls/hr 01/18/21 02:00 01/18/21 09:57 Solution IVPB 100 mls/hr Q8H MARY Administration Norepinephrine Bitartrate 4 mg 254 mls @ 14.197 mls/hr 01/18/21 07:00 / Sodium Chloride IV .[id number] MAYR Protocol 0.05 MCG/KG/MIN Naloxone HCl 0.2 mg 01/17/21 18:19 Naloxone 0.4 Mg/Ml 1 Ml Vial IV Q2M PRN Opioid Reversal Intake and Output 01/17/21 01/18/21 01/18/21 22:59 06:59 14:59 Intake Total 538.048 164.915 Output Total 40 0 Balance 498.048 164.915 Intake: IV 475 75 Levofloxacin 750Mg-D5w 100 Pmx 750 mg In Dextrose/ Water 1 150ml.bag @ 100 mls/hr IVPB ONCE STA Rx#: [id number] Sodium Chloride 0.9% 1, 375 75 000 ml @ 75 mls/hr IV . [id number] MARY Rx#:[id number] Intake, IV Titration 63.048 89.915 Amount Heparin Sod,Pork in 0.45% 63.048 89.915 NaCl 25,000 unit In 0.45 % NaCl 1 250ml.bag @ 12 UNITS/KG/HR 8.943 mls/hr IV .Q24H MARY Rx#: [id number] Output: Urine 40 0 Uretheral (Shea) 10 Other: Voiding Method Indwelling Catheter Weight 74.525 kg 74.525 kg 01/18/21 04:55 01/18/21 04:55 EKG Interpretations (text) Junctional versus atrial tachycardia Assessment and Plan (1) Acute cholecystitis Current Visit: Yes Status: Acute Code(s): K81.0 - ACUTE CHOLECYSTITIS SNO MED Code(s): 04104106 (2) NSTEMI (non-ST elevated myocardial infarction) Current Visit: Yes Status: Acute Code(s): I21.4 - NON-ST ELEVATION (NSTEMI) MYOCARDIAL INFARCTION SNOMED Code(s): 01608681 (3) Status post total right knee replacement Current Visit: Yes Status: Acute Code(s): Z96.651 - PRESENCE OF RIGHT ARTIFICIAL KNEE JOINT SNOMED Code(s): 2767728056686 (4) COPD (chronic obstructive pulmonary disease) Current Visit: No Status: Acute Code(s): J44.9 - CHRONIC OBSTRUCTIVE PULMONARY DISEASE, UNSPECIFIED SNOMED Code(s): 51982440 (5) Sepsis Current Visit: Yes Status: Acute Code(s): A41.9 - SEPSIS, UNSPECIFIED O RGANISM SNOMED Code(s): 27352525 Plan: Continue current measures. Patient is being considered for comfort care. We'll follow if needed
--- NOTE | 2021-01-18 13:20 | P.PN ---
Subjective Progress Note Date: 01/18/21 Patient was seen and evaluated by me this morning. He is awake and alert. He appears very confused. He does not have any complaints. Nursing staff informed me that he is having minimal urine output since last night. Objective - Vital Signs Vital signs: Vital Signs Temp 98.5 F 01/18/21 12:00 Pulse 116 H 01/18/21 12:00 Resp 25 H 01/18/21 12:00 BP 91/69 01/18/21 12:00 Pulse Ox 92 L 01/18/21 12:00 Intake & Output 01/17/21 01/18/21 01/18/21 18:59 06:59 18:59 Intake Total 538.048 889.915 Output Total 40 30 Balance 498.048 859.915 Weight 74.525 kg 74.525 kg Intake: IV 475 800 Levofloxacin 750Mg-D5w 100 Pmx 750 mg In Dextrose/ Water 1 150ml.bag @ 100 mls/hr IVPB ONCE [facility] Rx#: [id number] Sodium Chloride 0.9% 1, 375 450 000 ml @ 75 mls/hr IV . [id number] [facility] Rx#:[id number] Vancomycin 1,500 mg In 250 Sodium Chloride 0.9% 250 ml @ 125 mls/hr IVPB ONCE ONE Rx#:[id number] metroNIDAZOLE-NS PMX 500 100 mg In Saline 1 100ml.bag @ 100 mls/hr IVPB Q8H [facility] Rx#:[id number] Intake, IV Titration 63.048 89.915 Amount Heparin Sod,Pork in 0.45% 63.048 89.915 NaCl 25,000 unit In 0.45 % NaCl 1 250ml.bag @ 12 UNITS/KG/HR 8.943 mls/hr IV .Q24H [facility] Rx#: [id number] Output: Urine 40 30 Uretheral (Shea) 10 Other: Voiding Method Indwelling Catheter Indwelling Catheter - Exam General: The patient is awake and alert, in no distress Eye: there is normal conjunctiva bilaterally. Neck: The neck is supple, there is no JVD. Cardiovascular: Normal S1-S2, no S3-S4, no murmurs. Respiratory: Lungs clear to auscultation bilaterally Gastrointestinal: Abdomen is soft, nontender Musculoskeletal: There is no pedal edema. Neurological:. Speech is normal. Skin: Skin is warm and dry - Labs CBC & Chem 7: 01/18/21 04:55 01/18/21 04:55 Labs: Abnormal Lab Results - Last 24 Hours (Table) 01/17/21 01/17/21 01/17/21 Range/Units 15:49 15:49 15:49 WBC 19.0 H (3.8-10.6) k/uL RBC 3.60 L (4.30-5.90) m/uL Hgb 12.0 L (13.0-17.5) gm/dL Hct (39.0-53.0) % MCV 108.2 H (80.0-100.0) fL MCHC 30.8 L (31.0-37.0) g/dL Plt Count (150-450) k/uL Neutrophils # (Manual) 16.50 H (1.3-7.7) k/uL Lymphocytes # (Manual) 0.95 L (1.0-4.8) k/uL Monocytes # (Manual) 1.33 H (0-1.0) k/uL Metamyelocytes # (Man) 0.38 H (0) k/uL Myelocytes # (Manual) 0.19 H (0) k/uL Macrocytosis Marked A PT 17.8 H (9.0-12.0) sec INR 1.8 H (<1.2) APTT (22.0-30.0) sec D-Dimer 4.06 H (<0.60) mg/L FEU Potassium (3.5-5.1) mmol/L Carbon Dioxide 34 H (22-30) mmol/L BUN 64 H (9-20) mg/dL Creatinine 2.30 H (0.66-1.25) mg/dL Plasma Lactic Acid Angelo (0.7-2.0) mmol/L Calcium (8.4-10.2) mg/dL Total Bilirubin 2.8 H (0.2-1.3) mg/dL AST 687 H (17-59) U/L ALT 485 H (4-49) U/L Troponin I (0.000-0.034) ng/mL Total Protein 5.7 L (6.3-8.2) g/dL Albumin 3.1 L (3.5-5.0) g/dL Urine Protein (Negative) Urine Glucose (UA) (Negative) Urine Blood (Negative) Urine Bilirubin (Negative) Ur Leukocyte Esterase (Negative) Urine RBC (0-5) /hpf Urine WBC (0-5) /hpf Urine WBC Clumps (None) /hpf Amorphous Sediment (None) /hpf Urine Bacteria (None) /hpf Hyaline Casts (0-2) /lpf Urine Mucus (None) /hpf 01/17/21 01/17/21 01/17/21 Range/Units 15:49 15:49 22:04 WBC (3.8-10.6) k/uL RBC (4.30-5.90) m/uL Hgb (13.0-17.5) gm/dL Hct (39.0-53.0) % MCV (80.0-100.0) fL MCHC (31.0-37.0) g/dL Plt Count (150-450) k/uL Neutrophils # (Manual) (1.3-7.7) k/uL Lymphocytes # (Manual) (1.0-4.8) k/uL Monocytes # (Manual) (0-1.0) k/uL Metamyelocytes # (Man) (0) k/uL Myelocytes # (Manual) (0) k/uL Macrocytosis PT (9.0-12.0) sec INR (<1.2) APTT (22.0-30.0) sec D-Dimer (<0.60) mg/L FEU Potassium (3.5-5.1) mmol/L Carbon Dioxide (22-30) mmol/L BUN (9-20) mg/dL Creatinine (0.66-1.25) mg/dL Plasma Lactic Acid Angelo 5.4 H* 6.2 H* (0.7-2.0) mmol/L Calcium (8.4-10.2) mg/dL Total Bilirubin (0.2-1.3) mg/dL AST (17-59) U/L ALT (4-49) U/L Troponin I 3.000 H* (0.000-0.034) ng/mL Total Protein (6.3-8.2) g/dL Albumin (3.5-5.0) g/dL Urine Protein (Negative) Urine Glucose (UA) (Negative) Urine Blood (Negative) Urine Bilirubin (Negative) Ur Leukocyte Esterase (Negative) Urine RBC (0-5) /hpf Urine WBC (0-5) /hpf Urine WBC Clumps (None) /hpf Amorphous Sediment (None) /hpf Urine Bacteria (None) /hpf Hyaline Casts (0-2) /lpf Urine Mucus (None) /hpf 01/17/21 01/18/21 01/18/21 Range/Units 22:04 00:37 00:37 WBC (3.8-10.6) k/uL RBC (4.30-5.90) m/uL Hgb (13.0-17.5) gm/dL Hct (39.0-53.0) % MCV (80.0-100.0) fL MCHC (31.0-37.0) g/dL Plt Count (150-450) k/uL Neutrophils # (Manual) (1.3-7.7) k/uL Lymphocytes # (Manual) (1.0-4.8) k/uL Monocytes # (Manual) (0-1.0) k/uL Metamyelocytes # (Man) (0) k/uL Myelocytes # (Manual) (0) k/uL Macrocytosis PT (9.0-12.0) sec INR (<1.2) APTT 42.4 H (22.0-30.0) sec D-Dimer (<0.60) mg/L FEU Potassium (3.5-5.1) mmol/L Carbon Dioxide (22-30) mmol/L BUN (9-20) mg/dL Creatinine (0.66-1.25) mg/dL Plasma Lactic Acid Angelo (0.7-2.0) mmol/L Calcium (8.4-10.2) mg/dL Total Bilirubin (0.2-1.3) mg/dL AST (17-59) U/L ALT (4-49) U/L Troponin I 8.870 H* 10.200 H* (0.000-0.034) ng/mL Total Protein (6.3-8.2) g/dL Albumin (3.5-5.0) g/dL Urine Protein (Negative) Urine Glucose (UA) (Negative) Urine Blood (Negative) Urine Bilirubin (Negative) Ur Leukocyte Esterase (Negative) Urine RBC (0-5) /hpf Urine WBC (0-5) /hpf Urine WBC Clumps (None) /hpf Amorphous Sediment (None) /hpf Urine Bacteria (None) /hpf Hyaline Casts (0-2) /lpf Urine Mucus (None) /hpf 01/18/21 01/18/21 01/18/21 Range/Units 01:11 01:21 04:55 WBC 21.5 H (3.8-10.6) k/uL RBC 3.28 L (4.30-5.90) m/uL Hgb 11.3 L (13.0-17.5) gm/dL Hct 36.6 L (39.0-53.0) % MCV 111.3 H (80.0-100.0) fL MCHC 30.8 L (31.0-37.0) g/dL Plt Count 116 L (150-450) k/uL Neutrophils # (Manual) 19.30 H (1.3-7.7) k/uL Lymphocytes # (Manual) 0.65 L (1.0-4.8) k/uL Monocytes # (Manual) 1.08 H (0-1.0) k/uL Metamyelocytes # (Man) 0.43 H (0) k/uL Myelocytes # (Manual) 0.22 H (0) k/uL Macrocytosis Marked A PT (9.0-12.0) sec INR (<1.2) APTT (22.0-30.0) sec D-Dimer (<0.60) mg/L FEU Potassium (3.5-5.1) mmol/L Carbon Dioxide (22-30) mmol/L BUN (9-20) mg/dL Creatinine (0.66-1.25) mg/dL Plasma Lactic Acid Angelo 4.5 H* (0.7-2.0) mmol/L Calcium (8.4-10.2) mg/dL Total Bilirubin (0.2-1.3) mg/dL AST (17-59) U/L ALT (4-49) U/L Troponin I (0.000-0.034) ng/mL Total Protein (6.3-8.2) g/dL Albumin (3.5-5.0) g/dL Urine Protein 3+ H (Negative) Urine Glucose (UA) Trace H (Negative) Urine Blood Small H (Negative) Urine Bilirubin 1+ H (Negative) Ur Leukocyte Esterase Trace H (Negative) Urine RBC 6 H (0-5) /hpf Urine WBC 8 H (0-5) /hpf Urine WBC Clumps Few H (None) /hpf Amorphous Sediment Few H (None) /hpf Urine Bacteria Rare H (None) /hpf Hyaline Casts 12 H (0-2) /lpf Urine Mucus Rare H (None) /hpf 01/18/21 01/18/21 01/18/21 Range/Units 04:55 04:55 09:09 WBC (3.8-10.6) k/uL RBC (4.30-5.90) m/uL Hgb (13.0-17.5) gm/dL Hct (39.0-53.0) % MCV (80.0-100.0) fL MCHC (31.0-37.0) g/dL Plt Count (150-450) k/uL Neutrophils # (Manual) (1.3-7.7) k/uL Lymphocytes # (Manual) (1.0-4.8) k/uL Monocytes # (Manual) (0-1.0) k/uL Metamyelocytes # (Man) (0) k/uL Myelocytes # (Manual) (0) k/uL Macrocytosis PT 42.3 H (9.0-12.0) sec INR 4.4 H (<1.2) APTT 122.8 H* (22.0-30.0) sec D-Dimer (<0.60) mg/L FEU Potassium 5.8 H (3.5-5.1) mmol/L Carbon Dioxide (22-30) mmol/L BUN 74 H (9-20) mg/dL Creatinine 2.77 H (0.66-1.25) mg/dL Plasma Lactic Acid Angelo (0.7-2.0) mmol/L Calcium 8.1 L (8.4-10.2) mg/dL Total Bilirubin 2.2 H (0.2-1.3) mg/dL AST 2420 H (17-59) U/L ALT 1484 H (4-49) U/L Troponin I (0.000-0.034) ng/mL Total Protein 5.9 L (6.3-8.2) g/dL Albumin 3.1 L (3.5-5.0) g/dL Urine Protein (Negative) Urine Glucose (UA) (Negative) Urine Blood (Negative) Urine Bilirubin (Negative) Ur Leukocyte Esterase (Negative) Urine RBC (0-5) /hpf Urine WBC (0-5) /hpf Urine WBC Clumps (None) /hpf Amorphous Sediment (None) /hpf Urine Bacteria (None) /hpf Hyaline Casts (0-2) /lpf Urine Mucus (None) /hpf 01/18/21 Range/Units 09:09 WBC (3.8-10.6) k/uL RBC (4.30-5.90) m/uL Hgb (13.0-17.5) gm/dL Hct (39.0-53.0) % MCV (80.0-100.0) fL MCHC (31.0-37.0) g/dL Plt Count (150-450) k/uL Neutrophils # (Manual) (1.3-7.7) k/uL Lymphocytes # (Manual) (1.0-4.8) k/uL Monocytes # (Manual) (0-1.0) k/uL Metamyelocytes # (Man) (0) k/uL Myelocytes # (Manual) (0) k/uL Macrocytosis PT (9.0-12.0) sec INR (<1.2) APTT (22.0-30.0) sec D-Dimer (<0.60) mg/L FEU Potassium (3.5-5.1) mmol/L Carbon Dioxide (22-30) mmol/L BUN (9-20) mg/dL Creatinine (0.66-1.25) mg/dL Plasma Lactic Acid Angelo 3.2 H* (0.7-2.0) mmol/L Calcium (8.4-10.2) mg/dL Total Bilirubin (0.2-1.3) mg/dL AST (17-59) U/L ALT (4-49) U/L Troponin I (0.000-0.034) ng/mL Total Protein (6.3-8.2) g/dL Albumin (3.5-5.0) g/dL Urine Protein (Negative) Urine Glucose (UA) (Negative) Urine Blood (Negative) Urine Bilirubin (Negative) Ur Leukocyte Esterase (Negative) Urine RBC (0-5) /hpf Urine WBC (0-5) /hpf Urine WBC Clumps (None) /hpf Amorphous Sediment (None) /hpf Urine Bacteria (None) /hpf Hyaline Casts (0-2) /lpf Urine Mucus (None) /hpf Assessment and Plan Assessment: This is a 89-year-old male with complex past medical history noted below that presented to the emergency room with hypotension noted by his visiting nurse and worsening confusion. Patient was evaluated in the ER and admitted to the ICU for further management of his medical problems noted below 1. Severe sepsis with septic shock exact etiology unclear. Possibly aspiration pneumonia or acute cholangitis. Started on broad spectrum antibiotic. Aggres sive IV fluid hydration. 2. Acute hypoxic respiratory failure with pulmonary interstitial edema and small bilateral pleural effusion 3. Acute kidney injury 4. Liver failure secondary to liver shock and hypotension 5. Elevated troponin with type II non-STEMI secondary to demand/supply ischemia 6. History of pulmonary emboli on anticoagulation with Eliquis 7. Coagulopathy with elevated INR probably secondary to liver shock 8. Underlying cognitive impairment with recent aphasia attributed to ischemic vessel disease? Patient is currently admitted to the ICU. I spoke to his Dana over the phone today regarding goals of care. Patient is currently DO NOT RESUSCITATE/DO NOT INTUBATE. His is requesting comfort measures and hospice consult. The hospice meeting will be set up later today. We will continue supportive care otherwise.
[2021-01-18] MEDS: HEPARIN SOD,PORK IN 0.45% NACL 25,000 UNIT in 0.45% NACL 1 250ML.BAG IV SCH (17:32)
[2021-01-18] MEDS ORDERED: LEVOFLOXACIN 750MG-D5W PMX 750 MG in DEXTROSE/WATER 1 150ML.BAG IVPB SCH (18:00)
[2021-01-18] MEDS: IPRATROPIUM-ALBUTEROL 3 ML NEB INHALATION PRN (20:34)
[2021-01-19] MEDS: metroNIDAZOLE-NS PMX 500 MG in SALINE 1 100ML.BAG IVPB SCH ×3 (02:59→17:12)
[2021-01-19] MEDS: NOREPINEPHRINE 4 MG in SODIUM CHLORIDE 0.9% 250 ML IV SCH ×2 (03:04→21:48)
[2021-01-19 05:30] LABS: Basophils % (A) 0 %; Eosinophils % (A) 0 %; HCT 29.7 % (39.0-53.0); HGB 11.2 gm/dL (13.0-17.5); Lymphocytes % (A) 5 %; MCH 40.5 pg (25.0-35.0); MCHC 37.6 g/dL (31.0-37.0); Macrocytosis Marked; Mean Platelet Volume 8.9; Monocytes # (A) 0.5 k/uL (0-1.0); Monocytes % (A) 3 %; Neutrophils # (A) 15.7 k/uL (1.3-7.7); Neutrophils % (A) 89 %; RBC 2.75 m/uL (4.30-5.90); RDW 14.5 % (11.5-15.5); WBC 17.5 k/uL (3.8-10.6)
[2021-01-19 05:35] LABS: Partial Thromboplastin Time 33.3 sec (22.0-30.0); Prothrombin Time 28.8 sec (9.0-12.0)
[2021-01-19 05:37] LABS: Albumin 2.9 g/dL (3.5-5.0); Calcium 7.5 mg/dL (8.4-10.2); Potassium 4.9 mmol/L (3.5-5.1); Total Bilirubin 1.5 mg/dL (0.2-1.3); Total Protein 5.6 g/dL (6.3-8.2)
[2021-01-19 05:55] LABS: MCV 107.8 fL (80.0-100.0)
[2021-01-19 06:21] LABS: Anisocytosis (M) Present; Large Platelets Present; Ovalocytes Present; Platelet Count 78 k/uL (150-450); Poikilocytosis (M) Present
--- NOTE | 2021-01-19 08:56 | P.PN ---
Subjective Progress Note Date: 01/19/21 This is an 89-year-old gentleman with known history of paroxysmal atrial fibrillation not anticoagulated in the past, congestive heart failure, cerebrovascular accident, advanced dementia, recent total right knee arthroplasty on 12/12/2020. Following that discharge he was anticoagulated with Eliquis discharge to [facility] rehab on 12/17/2020. He is brought back to the emergency room on 01/08/2021 for a higher heart rate and was found to be in atrial fibrillation with a rapid ventricular response. Echocardiogram revealed reserved left ventricular systolic function with ejection fraction of 5055%. R ight ventricle is moderately to severely enlarged. Moderate to severe mitral regurgitation, severe tricuspid regurgitation, severe pulmonary hypertension with an RVSP of 80.[address] angiogram was consistent with congestive heart failure, cardiomegaly and small right greater than left pleural effusions. There were tiny peripheral pulmonary embolism in the left lower lobe artery as it began segmental branch. He was discharged again on 01/12/2021 to home with home care. He was on Eliquis. He was brought back to the emergency room again yesterday 01/17/2021 after the home care nurse found him to be hypotensive, hypoxic and lethargic. CAT scan of the abdomen and pelvis revealed gallbladder hyperdense and not well-visualized with ill-defined circumferential margins. Bilateral lower lobe multifocal consolidative infiltrates with small pleural effusions. Ultrasound of the gallbladder revealed markedly abnormal gallbladder with possible acute cholecystitis. Chest x-ray revealed improved aeration in the left lung base with residual left basilar airspace disease. White count 21.5. Hemoglobin 11.3. Platelet count 116,000. INR 4.4. D-dimer 4.06. Sodium 138. Potassium 5.8. Creatinine 2.77. Initial lactic acid 6.2, currently 4.5. AST 2420, ALT 1484. Alk phos 84. Troponin 8.87, 10.2. ProBNP 26,000 albumin 3.1. Urinalysis with 3+ protein and small blood few WBCs. Cor onavirus by PCR not detected. He's been hypotensive in the 80s and 90s systolic with mean arterial pressures in the 60s and 70s. He is tachycardic at 117 currently in sinus rhythm. He is on a nonrebreather mask with O2 saturations up to 100%. He is seen today in consultation in the intensive care unit. He is awake, garbled speech, oriented times one only. He denies any abdominal pain. No rebound tenderness or distention. Abdomen is soft. He had been initiated on vancomycin, Levaquin, Flagyl. No pressors thus far. 0.9#75 ML's Per Hour. He Has Received 1 L of Fluid Resuscitation. Urine output is minimal. Hematuria. The patient is seen today the 2020 in follow-up in the intensive care unit. He is currently sitting up in bed. Much more awake and alert today. Oriented to person. Responding appropriately. Denies any abdominal discomfort. No nausea or vomiting. Tolerating breakfast. Maintain O2 saturations in the 90s on 4 L/m per nasal cannula he remains tachycardic in the 120s. She's afebrile. Repeat arterial pressure in the 60s. Cultures reveal no growth. White count 17.5. Hemoglobin 11.2. Platelets 78,000. INR 3.0. PTT 33.3. Sodium 135. Potassium 4.9. Creatinine 2.86. AST 1083. ALT 1000 194. Albumin 2.9. He remains on DuoNeb inhalations, Pulmicort inhalations. Antibiotics in the form of Levaquin and Flagyl. 0.9 normal saline at 75 mL per hour. Objective - Vital Signs Vital signs: Vital Signs Temp 97.9 F 01/19/21 04:00 Pulse 123 H 01/19/21 07:00 Resp 18 01/19/21 07:00 BP 83/62 01/19/21 07:00 Pulse Ox 90 L 01/19/21 07:00 Intake & Output 01/18/21 01/19/21 01/19/21 18:59 06:59 18:59 Intake Total 4934.835 1457 Output Total 95 505 Balance 1644.915 695 Weight 76 kg Intake: IV 1350 1000 Sodium Chloride 0.9% 1, 900 900 000 ml @ 75 mls/hr IV . [id number] [facility] Rx#:[id number] Vancomycin 1,500 mg In 250 Sodium Chloride 0.9% 250 ml @ 125 mls/hr IVPB ONCE ONE Rx#:[id number] metroNIDAZOLE-NS PMX 500 200 100 mg In Saline 1 100ml.bag @ 100 mls/hr IVPB Q8H [facility] Rx#:[id number] Intake, IV Titration 89.915 Amount Heparin Sod,Pork in 0.45% 89.915 NaCl 25,000 unit In 0.45 % NaCl 1 250ml.bag @ 12 UNITS/KG/HR 8.943 mls/hr IV .Q24H [facility] Rx#: [id number] Oral 300 150 Tube Feeding 50 Output: Urine 95 505 Other: Voiding Method Indwelling Catheter Indwelling Catheter - Exam GENERAL EXAM: Alert, frail, 89-year-old gentleman, on 4 L nasal cannula, comfortable in no apparent distress. HEAD: Normocephalic. EYES: Normal reaction of pupils, equal size. NOSE: Clear with pink turbinates. THROAT: No erythema or exudates. NECK: No masses, no JVD. CHEST: No chest wall deformity. LUNGS: Equal air entry with crackles, end expiratory wheeze, diminished. CVS: S1 and S2 normal with no audible murmur, irregular rhythm. ABDOMEN: No hepatosplenomegaly, normal bowel sounds, no guarding or rigidity. SPINE: No scoliosis or deformity SKIN: No rashes CENTRAL NERVOUS SYSTEM: No focal deficits, tone is normal in all 4 extremities. EXTREMITIES: There is no peripheral edema. No clubbing, no cyanosis. Peripheral pulses are intact. - Labs CBC & Chem 7: 01/19/21 05:12 01/19/21 05:12 Labs: Abnormal Lab Results - Last 24 Hours (Table) 01/18/21 01/18/21 01/18/21 Range/Units 04:55 09:09 09:09 WBC (3.8-10.6) k/uL RBC (4.30-5.90) m/uL Hgb (13.0-17.5) gm/dL Hct (39.0-53.0) % MCV (80.0-100.0) fL MCH (25.0-35.0) pg MCHC (31.0-37.0) g/dL Plt Count (150-450) k/uL Neutrophils # (1.3-7.7) k/uL Neutrophils # (Manual) 19.30 H (1.3-7.7) k/uL Lymphocytes # (Manual) 0.65 L (1.0-4.8) k/uL Monocytes # (Manual) 1.08 H (0-1.0) k/uL Metamyelocytes # (Man) 0.43 H (0) k/uL Myelocytes # (Manual) 0.22 H (0) k/uL Macrocytosis PT (9.0-12.0) sec INR (<1.2) APTT 122.8 H* (22.0-30.0) sec Sodium (137-145) mmol/L BUN (9-20) mg/dL Creatinine (0.66-1.25) mg/dL Plasma Lactic Acid Angelo 3.2 H* (0.7-2.0) mmol/L Calcium (8.4-10.2) mg/dL Total Bilirubin (0.2-1.3) mg/dL AST (17-59) U/L ALT (4-49) U/L Total Protein (6.3-8.2) g/dL Albumin (3.5-5.0) g/dL 01/19/21 01/19/21 01/19/21 Range/Units 05:12 05:12 05:12 WBC 17.5 H (3.8-10.6) k/uL RBC 2.75 L (4.30-5.90) m/uL Hgb 11.2 L (13.0-17.5) gm/dL Hct 29.7 L (39.0-53.0) % MCV 107.8 H (80.0-100.0) fL MCH 40.5 H (25.0-35.0) pg MCHC 37.6 H (31.0-37.0) g/dL Plt Count 78 L (150-450) k/uL Neutrophils # 15.7 H (1.3-7.7) k/uL Neutrophils # (Manual) (1.3-7.7) k/uL Lymphocytes # (Manual) (1.0-4.8) k/uL Monocytes # (Manual) (0-1.0) k/uL Metamyelocytes # (Man) (0) k/uL Myelocytes # (Manual) (0) k/uL Macrocytosis Marked A PT 28.8 H (9.0-12.0) sec INR 3.0 H (<1.2) APTT 33.3 H (22.0-30.0) sec Sodium 135 L (137-145) mmol/L BUN 91 H (9-20) mg/dL Creatinine 2.86 H (0.66-1.25) mg/dL Plasma Lactic Acid Angelo (0.7-2.0) mmol/L Calcium 7.5 L (8.4-10.2) mg/dL Total Bilirubin 1.5 H (0.2-1.3) mg/dL AST 1083 H (17-59) U/L ALT 1194 H (4-49) U/L Total Protein 5.6 L (6.3-8.2) g/dL Albumin 2.9 L (3.5-5.0) g/dL Microbiology - Last 24 Hours (Table) 01/17/21 17:53 Blood Culture - Preliminary Blood No Growth after 24 hours 01/17/21 17:53 Blood Culture - Preliminary Blood No Growth after 24 hours Assessment and Plan Assessment: 1 Acute sepsis of unclear etiology with hypotension, not requiring pressors at this time. Initiated on Levaquin, Flagyl 2 Acute lactic acidosis, improved 3 Acute renal failure. Current creatinine 2.86 4 Acute shock liver. Secondary to sepsis, LFTs drifting down 5 Coagulopathy secondary to above, INR drifting down 6 Atrial fibrillation with rapid ventricular response, anticoagulated with Eliquis, currently sinus tachycardia possible a flutter 7 Leukocytosis 8 Non-ST segment elevation myocardial infarction 9 Recent total knee replacement on 12/12/2020 10 Recent readmission to the hospital for atrial fibrillation with rapid ventricular response on 01/08/2021 11 Small subsegmental pulmonary embolism noted on CT angiogram 01/10/2021 12 Advanced dementia with poor overall functional performance 13 History of CVA Plan: The patient was seen and evaluated by Dr. Cleary Chest x-ray and labs reviewed Repeat echocardiogram pending Possible surgical consult though does not want any surgical intervention We will resume Eliquis at a dose of 2.5 twice a day Titrate the FiO2 as tolerated The patient is a DNR/DNI CODE STATUS Prognosis remains quite guarded The patient's may consider home with hospice We'll make further recommendations based on her decision and the patient's clinical status I, the cosigning physician, performed a history & physical examination of the patient. Lungs sounds end expiratory wheeze, crackles in bilateral bases. Maintaining good O2 saturations in the 90s on 4 L/m per nasal cannula. I discussed the assessment and plan of care with my nurse practitioner, Carolyn Shi. I attest to the above note as dictated by her.
--- NOTE | 2021-01-19 09:38 | XR ---
EXAMINATION TYPE: XR chest 1V portable DATE OF EXAM: 01/19/2021 COMPARISON: 01/18/2021 INDICATION: CHF TECHNIQUE: Single frontal view of the chest is obtained. FINDINGS: The heart size is relatively enlarged. The pulmonary vasculature is normal. Retrocardiac infiltrate appears to be present. Some valve calcification may be present. Small right p leural effusion is present. Chronic rotator cuff tear and loss of joint space is present on the right. There is also degenerative type change with probable chronic rotator cuff tear on the left. IMPRESSION: 1. Cardiomegaly. 2. Small right pleural effusion. 3. Suspected left lower lobe posterior consolidation. Follow-up is recommended.
[2021-01-19] MEDS: IPRATROPIUM-ALBUTEROL 3 ML NEB INHALATION PRN (09:46)
--- NOTE | 2021-01-19 10:28 | P.PN ---
Subjective Patient is awake and alert today. Still confused. He does not have any complaints. He's been off of vasopressors since yesterday. No acute events overnight reported by nursing staff. Liver enzymes are improving. Objective - Vital Signs Vital signs: Vital Signs Temp 97.9 F 01/19/21 04:00 Pulse 129 H 01/19/21 10:07 Resp 18 01/19/21 07:00 BP 83/62 01/19/21 07:00 Pulse Ox 90 L 01/19/21 07:00 Intake & Output 01/18/21 01/19/21 01/19/21 18:59 06:59 18:59 Intake Total 9261.253 4848 Output Total 95 505 Balance 1644.915 695 Weight 76 kg Intake: IV 1350 1000 Sodium Chloride 0.9% 1, 900 900 000 ml @ 75 mls/hr IV . [id number] [facility] Rx#:[id number] Vancomycin 1,500 mg In 250 Sodium Chloride 0.9% 250 ml @ 125 mls/hr IVPB ONCE ONE Rx#:[id number] metroNIDAZOLE-NS PMX 500 200 100 mg In Saline 1 100ml.bag @ 100 mls/hr IVPB Q8H [facility] Rx#:[id number] Intake, IV Titration 89.915 Amount Heparin Sod,Pork in 0.45% 89.915 NaCl 25,000 unit In 0.45 % NaCl 1 250ml.bag @ 12 UNITS/KG/HR 8.943 mls/hr IV .Q24H [facility] Rx#: [id number] Oral 300 150 Tube Feeding 50 Output: Urine 95 505 Other: Voiding Method Indwelling Catheter Indwelling Catheter - Exam General: The patient is awake and alert, in no distress Eye: there is normal conjunctiva bilaterally. Neck: The neck is supple, there is no JVD. Cardiovascular: Normal S1-S2, no S3-S4, no murmurs. Respiratory: Lungs clear to auscultation bilaterally Gastrointestinal: Abdomen is soft, nontender Musculoskeletal: There is no pedal edema. Neurological:. Speech is normal. Skin: Skin is warm and dry - Labs CBC & Chem 7: 01/19/21 05:12 01/19/21 05:12 Labs: Abnormal Lab Results - Last 24 Hours (Table) 01/19/21 01/19/21 01/19/21 Range/Units 05:12 05:12 05:12 WBC 17.5 H (3.8-10.6) k/uL RBC 2.75 L (4.30-5.90) m/uL Hgb 11.2 L (13.0-17.5) gm/dL Hct 29.7 L (39.0-53.0) % MCV 107.8 H (80.0-100.0) fL MCH 40.5 H (25.0-35.0) pg MCHC 37.6 H (31.0-37.0) g/dL Plt Count 78 L (150-450) k/uL Neutrophils # 15.7 H (1.3-7.7) k/uL Macrocytosis Marked A PT 28.8 H (9.0-12.0) sec INR 3.0 H (<1.2) APTT 33.3 H (22.0-30.0) sec Sodium 135 L (137-145) mmol/L BUN 91 H (9-20) mg/dL Creatinine 2.86 H (0.66-1.25) mg/dL Calcium 7.5 L (8.4-10.2) mg/dL Total Bilirubin 1.5 H (0.2-1.3) mg/dL AST 1083 H (17-59) U/L ALT 1194 H (4-49) U/L Total Protein 5.6 L (6.3-8.2) g/dL Albumin 2.9 L (3.5-5.0) g/dL Microbiology - Last 24 Hours (Table) 01/17/21 17:53 Blood Culture - Preliminary Blood No Growth after 24 hours 01/17/21 17:53 Blood Culture - Preliminary Blood No Growth after 24 hours Assessment and Plan Assessment: This is a 89-year-old male with complex past medical history noted below that presented to the emergency room with hypotension noted by his visiting nurse and worsening confusion. Patient was evaluated in the ER and admitted to the ICU for further management of his medical problems noted below 1. Severe sepsis with septic shock exact etiology unclear. Possibly aspiration pneumonia or acute cholangitis. Started on broad spectrum antibiotic. Aggressive IV fluid hydration. 2. Acute hypoxic respiratory failure with pulmonary interstitial edema and small bilateral pleural effusion 3. Acute kidney injury 4. Liver failure secondary to liver shock and hypotension 5. Elevated troponin with type II non-STEMI secondary to demand/supply ischemia 6. History of pulmonary emboli on anticoagulation with Eliquis 7. Coagulopathy with elevated INR probably secondary to liver shock 8. Underlying cognitive impairment with recent aphasia attributed to ischemic vessel disease? Patient is currently admitted to the ICU. I spoke to his Dana over the phone for the second time today regarding goals of care. She had a meeting with hospice yesterday that appeared confused whether her is a candidate for hospice. She was also confused regarding the difference between hospice and home health care which she already has at home. We had another prolonged discussion regarding his current medical condition and his overall prognosis as well as their values and wishes. She appeared to be leaning more toward hospice and told me that she would like to call the hospice nurse again to discuss further. Her goal is to transition him to hospice at home. Patient is currently DO NOT RESUSCITATE/DO NOT INTUBATE. We will continue supportive care otherwise.
[2021-01-19] MEDS: SODIUM CHLORIDE 0.9% 1,000 ML IV SCH ×2 (11:05→20:06)
[2021-01-19] MEDS: APIXABAN 2.5 MG TABLET PO SCH ×2 (11:05→20:06)
--- NOTE | 2021-01-19 13:51 | ECHOF ---
Referral Reason:NSTEMI MEASUREMENTS -------- HEIGHT: 180.3 cm WEIGHT: 75.7 kg BP: IVSd: 0.8 cm (0.6 - 1.1) LVIDd: 3.9 cm (3.9 - 5.3) LVPWd: 1.0 cm (0.6 - 1.1) EDV(Teich): 66 ml IVSs: 1.4 cm LVIDs: 2.8 cm LVPWs: 1.4 cm %IVS Thck: 73 % ESV(Teich): 30 ml EF(Teich): 54 % %FS: 28 % SV(Teich): 36 ml RVIDd: 4.2 cm (< 3.3) IVC: 28.60 mm RA Diam: 6.0 cm TR Vmax: 2.89 m/s TR maxP.42 mmHg RAP: 20.00 mmHg RVSP: 53.42 mmHg FINDINGS -------- Resting tachycardia (HR>100bpm). Limited Study The left ventricular size is normal. Left ventricular wall thickness is normal. Overall left vent ricular systolic function is mild-moderately impaired with, an EF between 40 - 45 %. The right ventricle is severely enlarged. The right atrium is moderately enlarged. Severe mitral regurgitation is present. The tricuspid valve appears structurally normal. Moderate to severe tricuspid regurgitation present . There is moderate pulmonary hypertension. The right ventricular systolic pressure, as measured by Doppler, is 53.42mmHg. There is no pericardial effusion. CONCLUSIONS -------- 1. The left ventricular size is normal. 2. Left ventricular wall thickness is normal. 3. Overall left ventricular systolic function is mild-moderately impaired with, an EF between 40 - 45 %. 4. The right ventricle is severely enlarged. 5. The right atrium is moderately enlarged. 6. Severe mitral regurgitation is present. 7. Moderate to severe tricuspid regurgitation present. 8. There is moderate pulmonary hypertension. 9. The right ventricular systolic pressure, as measured by Doppler, is 53.42mmHg. 10. There is no pericardial effusion. INTERIOR DESIGN INSTRUCTOR: Gracie Lance RDCS
[2021-01-19] MEDS ORDERED: LEVOFLOXACIN 500MG-D5W PMX 500 MG in DEXTROSE/WATER 1 100ML.BAG IVPB SCH (18:00)
[2021-01-20] MEDS: metroNIDAZOLE-NS PMX 500 MG in SALINE 1 100ML.BAG IVPB SCH ×3 (01:42→17:58)
--- NOTE | 2021-01-20 08:13 | P.PN ---
Subjective Progress Note Date: 01/20/21 This is an 89-year-old gentleman with known history of paroxysmal atrial fibrillation not anticoagulated in the past, congestive heart failure, cerebrovascular accident, advanced dementia, recent total right knee arthroplasty on 12/12/2020. Following that discharge he was anticoagulated with Eliquis discharge to [facility] rehab on 12/17/2020. He is brought back to the emergency room on 01/08/2021 for a higher heart rate and was found to be in atrial fibrillation with a rapid ventricular response. Echocardiogram revealed reserved left ventricular systolic function with ejection fraction of 5055%. Right ventricle is moderately to severely enlarged. Moderate to severe mitral regurgitation, severe tricuspid regurgitation, severe pulmonary hypertension with an RVSP of 80.[address] angiogram was consistent with congestive heart failure, cardiomegaly and small right greater than left pleural effusions. There were tiny peripheral pulmonary embolism in the left lower lobe artery as it began segmental branch. He was discharged again on 01/12/2021 to home with home care. He was on Eliquis. He was brought back to the emergency room again yesterday 01/17/2021 after the home care nurse found him to be hypotensive, hypoxic and lethargic. CAT scan of the abdomen and pelvis revealed gallbladder hyperdense and not well-visualized with ill-defined circumferential margins. Bilateral lower lobe multifocal consolidative infiltrates with small pleural effusions. Ultrasound of the gallbladder revealed markedly abnormal gallbladder with possible acute cholecystitis. Chest x-ray revealed improved aeration in the left lung base with residual left basilar airspace disease. White count 21. 5. Hemoglobin 11.3. Platelet count 116,000. INR 4.4. D-dimer 4.06. Sodium 138. Potassium 5.8. Creatinine 2.77. Initial lactic acid 6.2, currently 4.5. AST 2420, ALT 1484. Alk phos 84. Troponin 8.87, 10.2. ProBNP 26,000 albumin 3.1. Urinalysis with 3+ protein and small blood few WBCs. Coronavirus by PCR not detected. He's been hypotensive in the 80s and 90s systolic with mean arterial pressures in the 60s and 70s. He is tachycardic at 117 currently in sinus rhythm. He is on a nonrebreather mask with O2 saturations up to 100%. He is seen today in consultation in the intensive care unit. He is awake, garbled speech, oriented times one only. He denies any abdominal pain. No rebound tenderness or distention. Abdomen is soft. He had been initiated on vancomycin, Levaquin, Flagyl. No pressors thus far. 0.9#75 ML's Per Hour. He Has Received 1 L of Fluid Resuscitation. Urine output is minimal. Hematuria. The patient is seen today the 2020 in follow-up in the intensive care unit. He is currently sitting up in bed. Much more awake and alert today. Oriented to person. Responding appropriately. Denies any abdominal discomfort. No nausea or vomiting. Tolerating breakfast. Maintain O2 saturations in the 90s on 4 L/m per nasal cannula he remains tachycardic in the 120s. She's afebrile. Repeat arterial pressure in the 60s. Cultures reveal no growth. White count 17.5. Hemoglobin 11.2. Platelets 78,000. INR 3.0. PTT 33.3. Sodium 135. Potassium 4.9. Creatinine 2.86. AST 1083. ALT 1000 194. Albumin 2.9. He remains on DuoNeb inhalations, Pulmicort inhalations. Antibiotics in the form of Levaquin and Flagyl. 0.9 normal saline at 75 mL per hour. 01/20/2021, I'm seeing the patient for a follow-up. The patient is currently still in the intensive care unit. The patient was quite ill at the time of presentation, currently much more awake and alert and his communicating. Note that he has multiple medical pros and comorbidities. The family is still strongly considering hospice care. The patient has a preserved LV function with an ejection fraction of 50-55%. The patient has moderate severe mitral regurgitation and severe pulmonary hypertension addition to CHF and chronic atrial fibrillation. There is also a concern for cholecystitis although clinically the patient has no right upper further pain and the liver function t ests continue to improve and this could be potentially related to shock liver. The patient came in to us with A. fib, RVR and hypotension and evidence of an acute kidney injury and liver injury. His numbers are stable for now. INR is down to 3.0. He remains off Coumadin. His creatinine is stable at 2.6. LFTs continued to improve. Troponin peaked at 10.2 suggesting an underlying non-ST segment elevation myocardial infarction. In terms of his white count, he has a white count of 17.4 with 11 hemoglobin of 11.2. His medications include a combination of Levaquin and Flagyl and this was chosen for the possibility of acute cholecystitis. He is on bronchodilators. He is on Eliquis for an ticoagulation. The patient is on no pressors. IV fluids are running in the form of normal saline at the rate of 75 mL's an hour. Cardiac rhythm is A. fib and the rate is tachycardic and his beta blockers need to be reinitiated. A limited echocardiogram was done yesterday that showed an LV function which was in the order of 40-45%, severe MR, severe pulmonary hypertension still present. Objective - Vital Signs Vital signs: Vital Signs Temp 97.8 F 01/20/21 04:00 Pulse 133 H 01/20/21 07:00 Resp 18 01/20/21 07:00 BP 92/74 01/20/21 07:00 Pulse Ox 91 L 01/20/21 07:00 Intake & Output 01/19/21 01/20/21 01/20/21 18:59 06:59 18:59 Intake Total 925 1125 75 Output Total 385 835 65 Balance 540 290 10 Weight 78.6 kg Intake: IV 925 925 75 Sodium Chloride 0.9% 1, 825 825 75 000 ml @ 75 mls/hr IV . [id number] MARY Rx#:[id number] metroNIDAZOLE-NS PMX 500 100 100 mg In Saline 1 100ml.bag @ 100 mls/hr IVPB Q8H MARY Rx#:[id number] Oral 200 Output: Urine 385 835 65 Other: Voiding Method Indwelling Catheter Indwelling Catheter # Bowel Movements 1 - Exam GENERAL EXAM: Alert, frail, 89-year-old gentleman, on 4 L nasal cannula, comfortable in no apparent distress. HEAD: Normocephalic. EYES: Normal reaction of pupils, equal size. NOSE: Clear with pink turbinates. THROAT: No erythema or exudates. NECK: No masses, no JVD. CHEST: No chest wall deformity. LUNGS: Equal air entry with crackles, end expiratory wheeze, diminished. CVS: S1 and S2 normal with no audible murmur, irregular rhythm. ABDOMEN: No hepatosplenomegaly, normal bowel sounds, no guarding or rigidity. SPINE: No scoliosis or deformity SKIN: No rashes CENTRAL NERVOUS SYSTEM: No focal deficits, tone is normal in all 4 extremities. EXTREMITIES: There is no peripheral edema. No clubbing, no cyanosis. Periph eral pulses are intact. - Labs CBC & Chem 7: 01/19/21 05:12 01/19/21 05:12 Labs: Microbiology - Last 24 Hours (Table) 01/17/21 17:53 Blood Culture - Preliminary Blood No Growth after 48 hours 01/17/21 17:53 Blood Culture - Preliminary Blood No Growth after 48 hours Assessment and Plan Plan: 1 acute non-STEMI with secondary hypotension, A. fib with RVR, acute lactic acidosis, acute kidney injury and shock liver. Clinically the patient is improving. The patient did not require any pressors. The patient responded to fluids. Echocardiogram was repeated and the patient has elevated dysfunction with an ejection fraction of 40-45%. The patient has severe mitral regurgitation and severe pulmonary hypertension. He did not require any pressors and hemodynamically stable at this point in time. 2 Acute lactic acidosis, improved 3 Acute renal failure. The creatinine remains elevated with a current creatinine is at 2.86 and his creatinine at time of admission was around 2.3. 4 Acute shock liver. Secondary to sepsis, LFTs drifting down, and LFTs continu ed to improve and the patient has no signs of clinical cholecystitis. 5 Coagulopathy secondary to above, INR drifting down currently on Eliquis 2.5 mg twice a day 6 Atrial fibrillation with rapid ventricular response, anticoagulated with Eliquis, currently sinus tachycardia possible a flutter, the patient is still somewhat tachycardic and the patient's heart rate increased to be under better control. Repeat echocardiac Isaias was noted 7 Leukocytosis, improving, 17 8 acute Non-ST segment elevation myocardial infarction 9 Recent total knee replacement on 12/12/2020 10 Recent readmission to the hospital for atrial fibrillation with rapid ventricular response on 01/08/2021 11 Small subsegmental pulmonary embolism noted on CT angiogram 01/10/2021 12 Advanced dementia with poor overall functional performance 13 History of CVA 14 Acute thrombocytopenia Plan: Reduced IV fluids to 50 mL an hour Chest x-ray still showing her to megaly and small bilateral pleural effusions The patient remains on 4 L of oxygen by nasal cannula Chest x-ray and labs reviewed from yesterday Repeat echocardiogram was reviewed and the patient has severe MR, severe pulmonary hypertension and LV dysfunction Restart metoprolol at a dose of 25 mg twice a day Possible surgical consult though does not want any surgical intervention We will resume Eliquis at a dose of 2.5 twice a day Titrate the FiO2 as tolerated The patient is a DNR/DNI CODE STATUS Prognosis remains quite guarded The patient's may consider home with hospice We'll make further recommendations based on her decision and the patient's clinical status
[2021-01-20] MEDS: SODIUM CHLORIDE 0.9% 1,000 ML IV SCH (09:39)
[2021-01-20] MEDS: METOPROLOL TARTRATE 25 MG TAB PO SCH ×2 (09:39→20:24)
[2021-01-20] MEDS: APIXABAN 2.5 MG TABLET PO SCH ×2 (09:39→20:24)
--- NOTE | 2021-01-20 12:57 | PN ---
PROGRESS NOTE This is an 89-year-old gentleman who was admitted to the hospital with hypotension and confusion. Patient was found to have evidence of non-STEMI, liver failure secondary to shock syndrome, possible cholecystitis and also acute kidney disease. Patient also has coagulopathy. Patient is off if vasopressors. He seems to be awake. Overall his prognosis seems to be poor. Attempts are being made to discuss hospice care with the patient's . Patient's wants to transition him to hospice care at home. Patient is DO NOT RESUSCITATE status at this time. His blood pressure is running about 80 to 90. Heart rate is about 130. Respirations are 18. Chest x-ray showed cardiomegaly, small right pleural effusion. Clinically lungs show diminished breath sounds at bases. Heart has distant heart sounds. No significant edema. IMPRESSION: 1. Severe hypotension. 2. Liver failure. 3. Possible cholecystitis. 4. Possible pneumonia. PLAN: Patient's prognosis is poor. He may be considered for hospice care. MMODL / IJN: [id number] /
--- NOTE | 2021-01-20 14:28 | P.PN ---
Subjective Patient is awake and alert today. No acute events overnight reported by nursing staff. Objective - Vital Signs Vital signs: Vital Signs Temp 98.4 F 01/20/21 12:00 Pulse 129 H 01/20/21 13:00 Resp 17 01/20/21 13:00 BP 97/72 01/20/21 13:00 Pulse Ox 94 L 01/20/21 12:00 Intake & Output 01/19/21 01/20/21 01/20/21 18:59 06:59 18:59 Intake Total 925 1125 500 Output Total 385 835 345 Balance 540 290 155 Weight 78.6 kg Intake: IV 925 925 500 Sodium Chloride 0.9% 1, 825 825 400 000 ml @ 50 mls/hr IV . Q20H MARY Rx#:[id number] metroNIDAZOLE-NS PMX 500 100 100 100 mg In Saline 1 100ml.bag @ 100 mls/hr IVPB Q8H MARY Rx#:[id number] Oral 200 Output: Urine 385 835 345 Other: Voiding Method Indwelling Catheter Indwelling Catheter Indwelling Catheter # Bowel Movements 1 - Exam General: The patient is awake and alert, in no distress Eye: there is normal conjunctiva bilaterally. Neck: The neck is supple, there is no JVD. Cardiovascular: Normal S1-S2, no S3-S4, no murmurs. Respiratory: Lungs clear to auscultation bilaterally Gastrointestinal: Abdomen is soft, nontender Musculoskeletal: There is no pedal edema. Neurological:. Speech is normal. Skin: Skin is warm and dry - Labs CBC & Chem 7: 01/19/21 05:12 01/19/21 05:12 Labs: Microbiology - Last 24 Hours (Table) 01/17/21 17:53 Blood Culture - Preliminary Blood No Growth after 48 hours 01/17/21 17:53 Blood Culture - Preliminary Blood No Growth after 48 hours Assessment and Plan Assessment: This is a 89-year-old male with complex past medical history noted below that presented to the emergency room with hypotension noted by his visiting nurse and worsening confusion. Patient was evaluated in the ER and admitted to the ICU for further management of his medical problems noted below 1. Severe sepsis with septic shock exact etiology unclear. Possibly aspiration pneumonia or acute cholangitis. Started on broad spectrum antibiotic. Aggressive IV fluid hydration. 2. Acute hypoxic respiratory failure with pulmonary interstitial edema and small bilateral pleural effusion 3. Acute kidney injury 4. Liver failure secondary to liver shock and hypotension 5. Elevated troponin with type II non-STEMI secondary to demand/supply ischemia 6. History of pulmonary emboli on anticoagulation with Eliquis 7. Coagulopathy with elevated INR probably secondary to liver shock 8. Underlying cognitive impairment with recent aphasia attributed to ischemic vessel disease? Patient is currently admitted to the ICU. I spoke to his Dana over the phone twice since admission regarding goals of care. She had a meeting with hospice. My understanding that she wants to pursue hospice at home. Patient is currently DO NOT RESUSCITATE/DO NOT INTUBATE. We will continue supportive care otherwise.
[2021-01-21] MEDS: SODIUM CHLORIDE 0.9% 1,000 ML IV SCH (00:59)
[2021-01-21] MEDS: metroNIDAZOLE-NS PMX 500 MG in SALINE 1 100ML.BAG IVPB SCH ×2 (00:59→10:04)
[2021-01-21 05:12] VITALS: BP 89/68; PULSE 126; RESP 20; TEMP 98.8
[2021-01-21] MEDS: METOPROLOL TARTRATE 25 MG TAB PO SCH (10:05)
[2021-01-21] MEDS: APIXABAN 2.5 MG TABLET PO SCH (10:05)
--- NOTE | 2021-01-21 11:50 | P.DS ---
Providers Date of admission: 01/17/21 18:20 Expected date of discharge: 01/21/21 Attending physician: Gomez Danielle MD Consults: 01/17/21 18:22 Consult Physician Urgent Consulting Provider: [facility] Consult Reason/Comments: nstemi Do you want consulting provider notified?: Yes Primary care physician: Ness Thomason MD Hospital Course: This is a 89-year-old male with complex past medical history noted below that presented to the emergency room with hypotension noted by his visiting nurse and worsening confusion. Patient was evaluated in the ER and admitted to the ICU for further management of his medical problems noted below 1. Severe sepsis with septic shock exact etiology unclear. Possibly aspiration pneumonia or acute cholangitis. Started on broad spectrum antibiotic. Aggressive IV fluid hydration. 2. Acute hypoxic respiratory failure with pulmonary interstitial edema and small bilateral pleural effusion 3. Acute kidney injury 4. Liver failure secondary to liver shock and hypotension 5. Elevated troponin with type II non-STEMI secondary to demand/supply ischemia 6. History of pulmonary emboli on anticoagulation with Eliquis 7. Coagulopathy with elevated INR probably secondary to liver shock 8. Underlying cognitive impairment with recent aphasia attributed to ischemic vessel disease? Patient was treated aggressively throughout his hospital stay. I had multiple discussions with his Dana over the phone regarding goals of care and guarded prognosis. She eventually decided to pursue comfort care and hospice. Hospice will be set up at home. We will continue current regimen right now as patient is not actively dying and is in relatively stable condition. His overall prognosis is poor. Physical exam: General: The patient is awake and alert, in no distress Eye: there is normal conjunctiva bilaterally. Neck: The neck is supple, there is no JVD. Cardiovascular: Normal S1-S2, no S3-S4, no murmurs. Respiratory: Lungs clear to auscultation bilaterally Gastrointestinal: Abdomen is soft, nontender Musculoskeletal: There is no pedal edema. Neurological:. Speech is normal. Skin: Skin is warm and dry Patient Condition at Discharge: Poor Plan - Discharge Summary Discharge Rx Participant: No New Discharge Prescriptions: New Metoprolol Tartrate [Lopressor] 25 mg PO BID #60 tab Apixaban [Eliquis] 2.5 mg PO BID #60 tablet Continue Levalbuterol Nebulized [Xopenex Nebulized] 1.25 mg INHALATION RT-TID PRN PRN Reason: Shortness Of Breath Budesonide [Pulmicort] 0.5 mg INHALATION RT-BID PRN PRN Reason: Shortness Of Breath Acetaminophen Tab [Tylenol] 650 mg PO Q4H PRN #30 tablet PRN Reason: Pain Tamsulosin [Flomax] 0.4 mg PO DAILY QUEtiapine [SEROquel] 25 mg PO HS Discontinued Metoprolol Succinate (ER) [Toprol XL] 100 mg PO HS #30 tab Metoprolol Succinate (ER) [Toprol XL] 50 mg PO DAILY #30 tab Furosemide [Lasix] 40 mg PO DAILY Apixaban [Eliquis Starter Pack (for VTE)] See Taper PO DIRECTED Discharge Medication List Levalbuterol Nebulized [Xopenex Nebulized] 1.25 mg INHALATION RT-TID PRN 10/04/18 [History] Budesonide [Pulmicort] 0.5 mg INHALATION RT-BID PRN 02/17/19 [History] Acetaminophen Tab [Tylenol] 650 mg PO Q4H PRN #30 tablet 02/18/19 [Rx] Tamsulosin [Flomax] 0.4 mg PO DAILY 01/08/21 [History] QUEtiapine [SEROquel] 25 mg PO HS 01/17/21 [History] Apixaban [Eliquis] 2.5 mg PO BID #60 tablet 01/21/21 [Rx] Metoprolol Tartrate [Lopressor] 25 mg PO BID #60 tab 01/21/21 [Rx] Follow up Appointment(s)/Referral(s): Sivan Velez [NON-STAFF] - Ness Thomason MD [Primary Care Provider] - 1-2 days Discharge Disposition: HOME WITH HOSPICE
== END 2021-01-21 13:19 | disposition hospice, home (50) | DRG 871 ==
LOC: EC 15:22 → 3SCARD 18:20 → 2SICU 01-18 00:02
PROVIDERS: ADMIT Internal Medicine; ATTEND Internal Medicine
PROC: 3E033XZ Introduction of Vasopressor into Peripheral Vein, Percutaneous Approach (ICD-10-PCS; principal; 2021-01-18)
DX: A41.9 Sepsis, unspecified organism (principal); I21.A1 Myocardial infarction type 2; R65.21 Severe sepsis with septic shock; K72.00 Acute and subacute hepatic failure without coma; J96.21 Acute and chronic respiratory failure with hypoxia; J69.0 Pneumonitis due to inhalation of food and vomit; I26.93 Single subsegmental thrombotic pulmonary embolism without acute cor pulmonale; N17.9 Acute kidney failure, unspecified; K81.0 Acute cholecystitis; J44.0 Chronic obstructive pulmonary disease with (acute) lower respiratory infection; E87.2 Acidosis; D68.9 Coagulation defect, unspecified; I48.20 Chronic atrial fibrillation, unspecified; Z20.822 Contact with and (suspected) exposure to COVID-19; Z99.81 Dependence on supplemental oxygen; Z96.651 Presence of right artificial knee joint; Z87.891 Personal history of nicotine dependence; Z86.73 Personal history of transient ischemic attack (TIA), and cerebral infarction without residual deficits; Z86.711 Personal history of pulmonary embolism; Z82.49 Family history of ischemic heart disease and other diseases of the circulatory system; Z80.3 Family history of malignant neoplasm of breast; Z66 Do not resuscitate; Z51.5 Encounter for palliative care; Z79.01 Long term (current) use of anticoagulants; Z79.899 Other long term (current) drug therapy; Z80.1 Family history of malignant neoplasm of trachea, bronchus and lung; M19.90 Unspecified osteoarthritis, unspecified site; J43.9 Emphysema, unspecified; I48.0 Paroxysmal atrial fibrillation; F03.90 Unspecified dementia, unspecified severity, without behavioral disturbance, psychotic disturbance, mood disturbance, and anxiety; I08.1 Rheumatic disorders of both mitral and tricuspid valves; I11.0 Hypertensive heart disease with heart failure; D64.9 Anemia, unspecified; I27.22 Pulmonary hypertension due to left heart disease; I50.9 Heart failure, unspecified; N40.0 Benign prostatic hyperplasia without lower urinary tract symptoms
CPT/HCPCS: 36415; 71045; 74176; 76705; 80053; 80202; 81001; 83605; 83735; 83880; 84484; 85025; 85379; 85610; 85730; 87040; 87635; 93005; 93308; 94640; 96360; 96361; 99285